=== PATIENT | female | born 1940 | race Caucasian/White ===

== ENCOUNTER 2016-11-19 04:56 | Emergency (ER) | payer MEDICARE, BC ==
[2016-11-19] MEDS ORDERED: 0.9 % SODIUM CHLORIDE 1,000 ML BAG IV ONE (05:17)
--- NOTE | 2016-11-19 05:24 | Emergency Department Record ---
History of Present Illness - General Chief complaint: Cough Stated complaint: COUGH Time Seen by Provider: 11/19/16 05:08 Source: Patient Mode of Arrival: Ambulatory Limitations: No limitations - History of Present Illness Initial comments: 76 yo female presented to the ER by EMS. She states she called the ambulance due to feeling weak, dizzy, nauseated, cough and short of breath. She states she has not felt well for about 3 days. The first symptom was sore throat. She is unaware of any fevers. Her cough at times has had thick sputum. No blood in the sputum. She called the ambulance due to feeling very weak and dizzy just prior to arrival. She lives alone. She denies vomiting or diarrhea or urinary symptoms. No headache. She has a feeling of trouble concentrating and remembering all the details of her recent illness. PCP is Trista with Dr Mccall. Complaint: Generalized weakness Onset/Timin -: Days(s) Location: Generalized Severity: Moderate Consistency: Intermittent Improves with: None Worsens with: Exertion Context: Recent illness Associated Symptoms: Confusion (trouble concentrating), Loss of appetite, Nausea /vomiting (nausea without vomiting) - Wheeler Coma Scale Eye Response: (4) Open spontaneously Motor Response: (6) Obeys commands Verbal Response: (5) Oriented Anne Total: 15 - Symptoms of Stroke Symptoms of stroke: Dizziness - Related Data Home Medications Medication Instructions Recorded Confirmed Last Taken Alprazolam [Alprazolam] 0.25 mg PO DAILY PRN 11/19/16 11/19/16 Unknown Aspirin [Ecotrin] 81 mg PO DAILY 11/19/16 11/19/16 Unknown Calcium Carbonate/Vitamin D3 1 each PO BID 11/19/16 11/19/16 Unknown [Calcium 500 + Vit D3 400 Tab] Carvedilol [Carvedilol] 6.25 mg PO BID 11/19/16 11/19/16 Unknown Cholecalciferol (Vitamin D3) 1,000 unit PO DAILY 11/19/16 11/19/16 Unknown [Vitamin D3] Latanoprost 0.005% Opth Liliam 2.5 ml OP BID 11/19/16 11/19/16 Unknown [Xalatan] Multivitamin [Multi-Vitamin Daily] 1 each PO DAILY 11/19/16 11/19/16 Unknown Oxybutynin Chloride [Oxybutynin 15 mg PO DAILY 11/19/16 11/19/16 Unknown Chloride ER] Raloxifene HCl [Evista] 60 mg PO DAILY 11/19/16 11/19/16 Unknown Spironolactone 12.5 mg PO DAILY 11/19/16 11/19/16 Unknown Previous Rx's Medication Instructions Recorded Azithromycin [Zithromax] 250 mg PO DAILY #4 tab 11/19/16 Allergies Allergy/AdvReac Type Severity Reaction Status Date / Time denosumab [From Prolia] Allergy SWELLING Verified 02/27/15 15:35 OF THE TONGUE Sulfa (Sulfonamide Allergy PT UNSURE Verified 02/27/15 15:35 Antibiotics) OF REACTION Travel Screening - Travel/Exposure Within Last 30 Days Have you traveled within the last 30 days?: No Review of Systems Constitutional: Reports: Malaise, Weakness. Denies: Chills, Fever Eyes: Denies: Eye discharge, Photophobia, Vision change ENT: Reports: Throat pain. Denies: Congestion Respiratory: Reports: Cough, Dyspnea. Denies: Hemoptysis, Stridor, Wheezes Cardiovascular: Denies: Chest pain, Palpitations, Syncope Endocrine: Reports: Fatigue. Denies: Polydipsia, Polyuria Gastrointestinal: Reports: Nausea. Denies: Abdominal pain, Diarrhea, Vomiting Genitourinary: Denies: Dysuria, Frequency, Urgency Musculoskeletal: Denies: Arthralgia, Back pain, Myalgia, Neck pain Skin: Denies: Bruising, Change in color, Rash Neurological: Reports: Weakness. Denies: Headache, Numbness, Vertigo Psychiatric: Denies: Anxiety Hematological/Lymphatic: Denies: Blood Clots, Easy bleeding, Easy bruising, Swollen glands Past Medical History - SOCIAL HISTORY Smoking Status: Never smoker Alcohol Use: None Drug Use: None - RESPIRATORY Hx Respiratory Disorders: No - CARDIOVASCULAR Hx Cardio Disorders: Yes Hx CHF: Yes (hx of when cardiomyopathy started) Hx Edema: Yes (hx of) Hx Hypertension: Yes (on meds good control) Comment:: cardiomyopathy dx'd 2003. stable now. works out 40 mins a day and walks nirmal - NEURO Hx Neuro Disorders: No - GI Hx GI Disorders: No - Hx Genitourinary Disorders: Yes Hx Bladder Problem: Yes (bladder pressure) - ENDOCRINE Hx Endocrine Disorders: No - MUSCULOSKELETAL Hx Musculoskeletal Disorders: Yes Hx Osteoporosis: Yes - PSYCH Hx Psych Problems: Yes Hx Anxiety: Yes - HEMATOLOGY/ONCOLOGY Hx Hematology/Oncology Disorders: No Family Medical History Any Significant Family History?: No Physical Exam - General General Appearance: Alert, Oriented x3, Cooperative, No acute distress, Other ( Alert but somewhat slowed with answers) Limitations: No limitations - Head Head exam: Normal inspection - Eye Eye exam: Normal appearance. negative: Conjunctival injection, Periorbital swelling - ENT ENT exam: Normal exam, Mucous membranes moist, Normal orophraynx Ear exam: Normal external inspection Nasal Exam: Normal inspection Mouth exam: Normal external inspection Teeth exam: Normal inspection Throat exam: Normal inspection - Neck Neck exam: Normal inspection, Full ROM. negative: Tenderness - Respiratory Respiratory exam: Normal lung sounds bilaterally. negative: Respiratory distress, Rhonchi, Stridor, Wheezes - Cardiovascular Cardiovascular Exam: Normal rhythm, Normal heart sounds, Tachycardia - GI/Abdominal GI/Abdominal exam: Soft. negative: Distended, Tenderness - Rectal Rectal exam: Deferred - exam: Deferred - Extremities Extremities exam: Normal inspection, Full ROM, Normal capillary refill. negative: Pedal edema, Tenderness - Back Back exam: Reports: Normal inspection, Full ROM. Denies: Muscle spasm, Rash noted, Tenderness - Neurological Neurological exam: Alert, CN II-XII intact. negative: Motor sensory deficit - Psychiatric Psychiatric exam: Flat affect - Skin Skin exam: Dry, Intact, Normal color, Warm. negative: Cyanosis, Diaphoretic, Erythema Course Vital Signs 11/19/16 05:10 Temperature 98.6 F Pulse Rate [ 112 H Pulse Ox Probe] Respiratory 16 Rate Blood Pressure 132/66 [Left Arm] Pulse Ox 96 - Reevaluation(s) Reevaluation #1: The labs were reviewed No acute changes of the CBC, CMP or Troponin UA is pending The HCT scan was reviewed from [facility]. It was read as no acute disease. 11/19/16 06:11 Reevaluation #2: UA is negative for acute changes 11/19/16 06:49 Repeat vital reviewed HR improved The patient states she is feeling much better and is ready to go home I recommended repeat Troponin For her cough she will be given Zithromax She denies any weakness, nausea, dizziness or concerns. She was informed of the recommendation for repeat Troponin She will need to call for a ride as well. 11/19/16 06:50 Reevaluation #3: The case was turned over at the bedside to Dr Robles for repeat enzymes The patient is attempting to schedule 11/19/16 07:30 Procedures - EKG Initial Date: 11/19/16 Time: 05:01 EKG: Unchanged From Previous (LVH noted on prior EKG on 09/09/16 as well) EKG Detail: Sinus tach, [place] 221, [place] L, LVH early repol likely due to LVH Medical Decision Making - Lab Data Result diagrams: 11/19/16 05:20 11/19/16 05:20 Disposition Disposition: Discharge Clinical Impression: Bronchitis, Dizziness Disposition: Home, Self-Care Condition: (1) Good Instructions: Acute Bronchitis (ED) Additional Instructions: Call your doctor today for a recheck this week Return to the hospital if you have any return of symptoms, pain, short of breath , dizziness or concerns Take the antibiotic daily for 4 more days Prescriptions: Azithromycin [Zithromax] 250 mg PO DAILY #4 tab Forms: Patient Portal Access Time of Disposition: 07:31
[2016-11-19 05:30] LABS: HEMATOCRIT 42.7 % (35.0-47.0); MEAN CELL VOLUME 99.3 fl (81-97); MEAN CORPUSCULAR HEMOGLOBIN 32.6 pg (27-33); MEAN CORPUSCULAR HGB CONC 32.8 g/dl (32-36); MEAN PLATELET VOLUME 13.4 fl (7.4-10.4); PLATELET COUNT 122 K/uL (130-400); RED CELL DISTRIBUTION WIDTH 13.2 % (11.5-14.5); WHITE BLOOD COUNT W/O DIFF 7.4 K/uL (4.2-12.2)
[2016-11-19 05:40] LABS: ALB/GLOB RATIO 1.2 (1.1-1.8); ALBUMIN 3.5 gm/dL (3.5-5.0); ALKALINE PHOSPHATASE 42 U/L (38-126); ALT/SGPT 36 U/L (9-52); ANION GAP 3.8 (7-16); AST/SGOT 31 U/L (14-36); BILIRUBIN,TOTAL 0.62 mg/dL (0.2-1.3); BLOOD UREA NITROGEN 16 mg/dL (7-17); CARBON DIOXIDE 27.2 mmol/L (22-30); CREATININE 0.8 mg/dL (0.52-1.04); EST GLOMERULAR FILTRATION RATE > 60 ml/min; GLUCOSE,RANDOM 115 mg/dL (70-110); TOTAL PROTEIN 6.4 gm/dL (6.3-8.2)
[2016-11-19 05:52] LABS: TROPONIN I < 0.012 ng/mL (0.00-0.034)
[2016-11-19 06:11] LABS: THYROID STIMULATING HORMONE 1.16 uIU/ml (0.465-4.68)
[2016-11-19 06:28] LABS: URINE APPEARANCE CLEAR; URINE BILIRUBIN NEGATIVE (NEGATIVE); URINE BLOOD NEGATIVE (NEGATIVE); URINE COLOR YELLOW; URINE GLUCOSE (UA) NEGATIVE (NEGATIVE); URINE KETONE NEGATIVE (NEGATIVE); URINE LEUKOCYTE ESTERASE NEGATIVE (NEGATIVE); URINE NITRITE NEGATIVE (NEGATIVE); URINE PROTEIN NEGATIVE (NEGATIVE); URINE UROBILINOGEN 0.2 E.U./dL (0.20 - 1.00)
[2016-11-19] MEDS: AZITHROMYCIN 500 MG TABLET PO ONE (06:59)
--- NOTE | 2016-11-19 08:29 | Emergency Department Record ---
History of Present Illness - General Chief Complaint: Cough Stated Complaint: COUGH Time Seen by Provider: 11/19/16 05:08 Source: Patient Mode of Arrival: Ambulatory Limitations: No limitations - History of Present Illness Initial Comments: cough and congestion and never smoked and I took ove from Dr. Burris at 7am. Patient was waiting for a second set of cardiac enzymes. Initial studies negative. Patient had acough for 3 days and a little dizzy when she came in to the hospital. No dizziness sitting up on the cart. Patient said she is feeling better and would like to go home. She wanted Zoe Marin called who works here. MD Complaint: Cough Onset/Timin -: Days(s) Severity: Moderate Consistency: Intermittent - Related Data Home Medications Medication Instructions Recorded Confirmed Last Taken Alprazolam [Alprazolam] 0.25 mg PO DAILY PRN 11/19/16 11/19/16 Unknown Aspirin [Ecotrin] 81 mg PO DAILY 11/19/16 11/19/16 Unknown Calcium Carbonate/Vitamin D3 1 each PO BID 11/19/16 11/19/16 Unknown [Calcium 500 + Vit D3 400 Tab] Carvedilol [Carvedilol] 6.25 mg PO BID 11/19/16 11/19/16 Unknown Cholecalciferol (Vitamin D3) 1,000 unit PO DAILY 11/19/16 11/19/16 Unknown [Vitamin D3] Latanoprost 0.005% Opth Liliam 2.5 ml OP BID 11/19/16 11/19/16 Unknown [Xalatan] Multivitamin [Multi-Vitamin Daily] 1 each PO DAILY 11/19/16 11/19/16 Unknown Oxybutynin Chloride [Oxybutynin 15 mg PO DAILY 11/19/16 11/19/16 Unknown Chloride ER] Raloxifene HCl [Evista] 60 mg PO DAILY 11/19/16 11/19/16 Unknown Spironolactone 12.5 mg PO DAILY 11/19/16 11/19/16 Unknown Previous Rx's Medication Instructions Recorded Azithromycin [Zithromax] 250 mg PO DAILY #4 tab 11/19/16 Allergies Allergy/AdvReac Type Severity Reaction Status Date / Time denosumab [From Prolia] Allergy SWELLING Verified 02/27/15 15:35 OF THE TONGUE Sulfa (Sulfonamide Allergy PT UNSURE Verified 02/27/15 15:35 Antibiotics) OF REACTION Travel Screening - Travel/Exposure Within Last 30 Days Have you traveled within the last 30 days?: No Review of Systems Constitutional: Reports: Malaise, Weakness. Denies: Chills, Fever Eyes: Denies: Eye discharge, Photophobia, Vision change ENT: Reports: Throat pain. Denies: Congestion Respiratory: Reports: Cough, Dyspnea. Denies: Hemoptysis, Stridor, Wheezes Cardiovascular: Denies: Chest pain, Palpitations, Syncope Endocrine: Reports: Fatigue. Denies: Polydipsia, Polyuria Gastrointestinal: Reports: Nausea. Denies: Abdominal pain, Diarrhea, Vomiting Genitourinary: Denies: Dysuria, Frequency, Urgency Musculoskeletal: Denies: Arthralgia, Back pain, Myalgia, Neck pain Skin: Denies: Bruising, Change in color, Rash Neurological: Reports: Weakness. Denies: Headache, Numbness, Vertigo Psychiatric: Denies: Anxiety Hematological/Lymphatic: Denies: Blood Clots, Easy bleeding, Easy bruising, Swollen glands Past Medical History - SOCIAL HISTORY Smoking Status: Never smoker Alcohol Use: None Drug Use: None - RESPIRATORY Hx Respiratory Disorders: No - CARDIOVASCULAR Hx Cardio Disorders: Yes Hx CHF: Yes (hx of when cardiomyopathy started) Hx Edema: Yes (hx of) Hx Hypertension: Yes (on meds good control) Comment:: cardiomyopathy dx'd 2003. stable now. works out 40 mins a day and walks nirmal - NEURO Hx Neuro Disorders: No - GI Hx GI Disorders: No - Hx Genitourinary Disorders: Yes Hx Bladder Problem: Yes (bladder pressure) - ENDOCRINE Hx Endocrine Disorders: No - MUSCULOSKELETAL Hx Musculoskeletal Disorders: Yes Hx Osteoporosis: Yes - PSYCH Hx Psych Problems: Yes Hx Anxiety: Yes - HEMATOLOGY/ONCOLOGY Hx Hematology/Oncology Disorders: No Family Medical History Any Significant Family History?: No Physical Exam - General General Appearance: Alert, Oriented x3, Cooperative, No acute distress Limitations: No limitations - Head Head exam: Normal inspection - Eye Eye exam: Normal appearance, PERRL Pupils: Normal accommodation - ENT ENT exam: Normal exam, Mucous membranes moist, Normal external ear exam, Normal orophraynx, TM's normal bilaterally Ear exam: Normal external inspection. negative: External canal tenderness Nasal Exam: Normal inspection. negative: Discharge, Sinus tenderness Mouth exam: Normal external inspection, Tongue normal Teeth exam: Normal inspection. negative: Dental caries Throat exam: Normal inspection. negative: Tonsillar erythema, Tonsillar exudate - Neck Neck exam: Normal inspection, Full ROM. negative: Tenderness - Respiratory Respiratory exam: Normal lung sounds bilaterally. negative: Respiratory distress - Cardiovascular Cardiovascular Exam: Regular rate, Normal rhythm, Normal heart sounds - GI/Abdominal GI/Abdominal exam: Soft, Normal bowel sounds. negative: Tenderness - Rectal Rectal exam: Deferred - exam: Deferred - Extremities Extremities exam: Normal inspection, Full ROM, Normal capillary refill. negative: Tenderness - Back Back exam: Reports: Normal inspection, Full ROM. Denies: Muscle spasm, Rash noted, Tenderness - Neurological Neurological exam: Alert, Normal gait, Oriented X3, Reflexes normal - Psychiatric Psychiatric exam: Normal affect, Normal mood - Skin Skin exam: Dry, Intact, Normal color, Warm Course Vital Signs 11/19/16 11/19/16 05:10 06:33 Temperature 98.6 F Pulse Rate [ 112 H 87 Pulse Ox Probe] Respiratory 16 18 Rate Blood Pressure 132/66 102/54 [Left Arm] Pulse Ox 96 92 L - Reevaluation(s) Reevaluation #1: 11/19/16 09:07 patient denies chest pain or dysnea Medical Decision Making - Data Complexity MDM Data: Labs Ordered and/or Reviewed (second trop i neg), X-Ray Ordered and/ or Reviewed (chest xray neg, CT head neg ), EKG Ordered and/or Reviewed (NSR , LVH repolarization, ) - Lab Data Result diagrams: 11/19/16 05:20 11/19/16 05:20 Lab Results 11/19/16 11/19/16 11/19/16 Range/Units 05:20 05:20 06:20 WBC 7.4 (4.2-12.2) K/uL RBC 4.30 (3.80-5.40) M/uL Hgb 14.0 (11.6-16.0) gm/dl Hct 42.7 (35.0-47.0) % MCV 99.3 H (81-97) fl MCH 32.6 (27-33) pg MCHC 32.8 (32-36) g/dl RDW 13.2 (11.5-14.5) % Plt Count 122 L (130-400) K/uL MPV 13.4 H (7.4-10.4) fl Neutrophils % 82.0 H (47-80) % Band Neutrophils % 0.0 (0-5) % Eosinophils % Not Reportable Basophils % Not Reportable Lymphocytes 10.0 L (16-45) % Monocytes 8.0 (0-9) % Basophils 0.0 (0-6) % Eosinophil Count 0.0 (0-6) % Sodium 135 L (136-145) mmol/L Potassium 4.0 (3.5-5.1) mmol/L Chloride 104 (98-107) mmol/L Carbon Dioxide 27.2 (22-30) mmol/L Anion Gap 3.8 L (7-16) BUN 16 (7-17) mg/dL Creatinine 0.8 (0.52-1.04) mg/dL Estimated GFR > 60 ml/min Random Glucose 115 H (70-110) mg/dL Calcium 8.5 (8.5-10.1) mg/dL Total Bilirubin 0.62 (0.2-1.3) mg/dL AST 31 (14-36) U/L ALT 36 (9-52) U/L Alkaline Phosphatase 42 (38-126) U/L Troponin I < 0.012 (0.00-0.034) ng/mL Total Protein 6.4 (6.3-8.2) gm/dL Albumin 3.5 (3.5-5.0) gm/dL Globulin 2.9 (1.4-4.8) gm/dL Albumin/Globulin Ratio 1.2 (1.1-1.8) TSH 1.16 (0.465-4.68) uIU/ml Urine Color Yellow Urine Appearance Clear Urine pH 7.5 (5.0-8.0) Ur Specific [place] 1.015 (1.002-1.030) Urine Protein Negative (NEGATIVE) Urine Glucose (UA) Negative (NEGATIVE) Urine Ketones Negative (NEGATIVE) Urine Blood Negative (NEGATIVE) Urine Nitrite Negative (NEGATIVE) Urine Bilirubin Negative (NEGATIVE) Urine Urobilinogen 0.2 (0.20 - 1.00) E.U./dL Ur Leukocyte Esterase Negative (NEGATIVE) Disposition Clinical Impression: Bronchitis, Dizziness Disposition: Home, Self-Care Condition: (1) Good Instructions: Acute Bronchitis (ED) Additional Instructions: Call your doctor today for a recheck this week Return to the hospital if you have any return of symptoms, pain, short of breath , dizziness or concerns Take the antibiotic daily for 4 more days Prescriptions: Azithromycin [Zithromax] 250 mg PO DAILY #4 tab Forms: Patient Portal Access Time of Disposition: 08:54
[2016-11-19 09:02] LABS: CKMB 0.4 ug/L (0-6); TROPONIN I < 0.012 ng/mL (0.00-0.034)
== END 2016-11-19 09:20 | disposition home or self-care (01) ==
LOC: ER 04:56
DX: J20.9 Acute bronchitis, unspecified (principal); R42 Dizziness and giddiness; R11.0 Nausea; R06.02 Shortness of breath; R53.1 Weakness; I10 Essential (primary) hypertension; I50.9 Heart failure, unspecified
CPT/HCPCS: 70450; 71020; 80053; 81003; 82553; 84443; 84484; 85027; 93005; 93010; 99284

== ENCOUNTER 2018-01-08 05:44 | Observation (INO) | payer MEDICARE, BC ==
[2018-01-08] MEDS ORDERED: IPRATROPIUM/ALBUTEROL (0.5MG/3MG) NEB INH ONE (05:55)
[2018-01-08] MEDS ORDERED: METHYLPREDNISOLONE PF 125MG/VIAL IVP ONE (05:55)
--- NOTE | 2018-01-08 06:05 | Emergency Department Record ---
History of Present Illness - General Chief Complaint: Shortness of breath Stated Complaint: CLARISSA Time Seen by Provider: 01/08/18 05:54 Source: Patient - History of Present Illness Initial Comments: The patient states she has had 3 days of increasing shortness of breath. She notified Dr. Mccall who ordered blood work and an out patient CXR, done yesterday. She came to the EDept. on her own this a.m. because her CLARISSA was worsening. She is a poor historian, lives alone, cares for all her daily needs by herself. She states she has lost 6 pounds over the past 3-4 months. Her dyspnea worsens when she exerts herself, improves with rest. She sleeps with one pillow without elevation of her head. She denies chest pain pressure or heaviness, fevers, chills, productive cough, URI symptoms, abdominal pain, leg swelling, diaphoresis. She has never been a smoker. She states she has been taking her meds as directed, but as not taken them this morning yet. PMH: She denies CVA, PE, DVT, pneumonia. She has hx of cardiomyopathy, CHF, htn, anxiety , depression. MD Complaint: Shortness of breath - Related Data Allergies Allergy/AdvReac Type Severity Reaction Status Date / Time denosumab [From Prolia] Allergy SWELLING Verified 02/27/15 15:35 OF THE TONGUE Sulfa (Sulfonamide Allergy PT UNSURE Verified 02/27/15 15:35 Antibiotics) OF REACTION Past Medical History - SOCIAL HISTORY Smoking Status: Never smoker Drug Use: None - RESPIRATORY Hx Respiratory Disorders: No - CARDIOVASCULAR Hx Cardio Disorders: Yes Hx CHF: Yes (hx of when cardiomyopathy started) Hx Edema: Yes (hx of) Hx Hypertension: Yes (on meds good control) Comment:: cardiomyopathy dx'd 2003. stable now. works out 40 mins a day and walks nirmal - NEURO Hx Neuro Disorders: No - GI Hx GI Disorders: No - Hx Genitourinary Disorders: Yes Hx Bladder Problem: Yes (bladder pressure) - ENDOCRINE Hx Endocrine Disorders: No - MUSCULOSKELETAL Hx Musculoskeletal Disorders: Yes Hx Osteoporosis: Yes - PSYCH Hx Psych Problems: Yes Hx Anxiety: Yes - HEMATOLOGY/ONCOLOGY Hx Hematology/Oncology Disorders: No Physical Exam - General General Appearance: Alert, Oriented x3, Cooperative, Mild distress (mildly- moderately breathless, cachectic, JVD of neck veins, generalized weakness RA biox 94.) - Head Head exam: Normal inspection - Eye Eye exam: Normal appearance, PERRL, EOMI Pupils: Normal accommodation - ENT ENT exam: Normal exam, Mucous membranes moist, Normal external ear exam, Normal orophraynx, TM's normal bilaterally Ear exam: Normal external inspection. negative: External canal tenderness Nasal Exam: Normal inspection. negative: Discharge, Sinus tenderness Mouth exam: Normal external inspection, Tongue normal Teeth exam: Normal inspection. negative: Dental caries Throat exam: Normal inspection. negative: Tonsillar erythema, Tonsillar exudate - Neck Neck exam: Normal inspection, Full ROM, Other (JVD sitting upright). negative: Tenderness - Respiratory Respiratory exam: Decreased breath sounds, Prolonged expiratory, Rales (all lung rice), Other (tachypnea at 44/minute). negative: Respiratory distress - Cardiovascular Cardiovascular Exam: Regular rate, Normal rhythm, Normal heart sounds - GI/Abdominal GI/Abdominal exam: Soft, Normal bowel sounds. negative: Tenderness - Rectal Rectal exam: Deferred - exam: Deferred - Extremities Extremities exam: Normal inspection, Full ROM, Normal capillary refill. negative: Calf tenderness, Pedal edema, Tenderness - Back Back exam: Reports: Normal inspection, Full ROM. Denies: Muscle spasm, Rash noted, Tenderness - Neurological Neurological exam: Alert, CN II-XII intact, Normal gait, Oriented X3, Reflexes normal. negative: Motor sensory deficit - Psychiatric Psychiatric exam: Anxious, Depressed, Flat affect, Normal affect, Normal mood - Skin Skin exam: Dry, Intact, Normal color, Warm Course Vital Signs 01/08/18 05:45 Pulse Rate [ 91 H Pulse Ox Probe] Respiratory 44 H Rate Blood Pressure 142/80 [Left Arm] Pulse Ox 94 L - Reevaluation(s) Reevaluation #1: Patient states that the Duoneb helped her "a little bit." 01/08/18 06:27 Reevaluation #2: Dr. Munguia title i paraprofessional and paged. No response yet, will write orders. 01/08/18 06:57 Reevaluation #3: Discussed case with Dr. Munguia who accepts patient for observation. 01/08/18 07:03 Medical Decision Making - Management Options MDM Management: Additional Work-up Planned (e.g. ADM/Transfer/OP Study) - Data Complexity MDM Data: Labs Ordered and/or Reviewed, X-Ray Ordered and/or Reviewed (CXR from 01-07-18 read by Rad. as no acute process, osteopenia, hyperinflation of lungs. ) , EKG Ordered and/or Reviewed - Lab Data Result diagrams: 01/08/18 06:02 01/08/18 06:02 - EKG Data -: EKG Interpreted by Me (NSR 82/min, LAD, multifocal PVC's, nonspec. ST changes , similar to 04-07-17) EKG: Unchanged From Previous Disposition Clinical Impression: Exertional dyspnea, Generalized weakness Disposition: Still a Patient at [facility] Decision to Admit: Admit from ER Decision to Admit Date: 01/08/18 Decision to Admit Time: 06:58 Accepting Physician: Dr. Munguia (title i paraprofessional) Condition: (1) Good Forms: Patient Portal Access Quality - Quality Measures Quality Measures: N/A - Blood Pressure Screening Does Patient Have Any of the Following: No Blood Pressure Classification: Normal BP Reading Systolic Measurement: 95 Diastolic Measurement: 63 Screening for High Blood Pressure: Patient Exclusion, Hx of HTN [G9744]
[2018-01-08 06:25] LABS: BLOOD UREA NITROGEN 20 mg/dL (8-23); CREATININE 0.7 mg/dL (0.5-0.9); EST GLOMERULAR FILTRATION RATE > 60 mL/min
[2018-01-08 06:26] LABS: BASO % 0.4 % (0-6); GRAN % 51.2 % (47-80); HEMATOCRIT 45.3 % (35.0-47.0); HEMOGLOBIN 15.2 gm/dl (11.6-16.0); LYMPH % 33.6 % (16-45); MEAN CELL VOLUME 100.7 fl (81-97); MEAN CORPUSCULAR HEMOGLOBIN 33.8 pg (27-33); MEAN CORPUSCULAR HGB CONC 33.6 g/dl (32-36); MEAN PLATELET VOLUME 13.9 fl (7.4-10.4); MONO % 11.8 % (0-9); PLATELET COUNT 158 K/uL (130-400); RED CELL DISTRIBUTION WIDTH 13.6 % (11.5-14.5); TOTAL PROTEIN 6.5 g/dL (6.6-8.7); WHITE BLOOD COUNT W/O DIFF 7.1 K/uL (4.2-12.2)
[2018-01-08 06:28] LABS: GLUCOSE,RANDOM 143 mg/dL (74-109)
[2018-01-08 06:31] LABS: ALB/GLOB RATIO 1.6 (1.1-1.8); ALKALINE PHOSPHATASE 45 U/L (35-104); ALT/SGPT 30 U/L (<33); AST/SGOT 37 U/L (10.0-35.0)
[2018-01-08] MEDS ORDERED: ACETAMINOPHEN 325 MG TAB PO PRN (07:46)
--- NOTE | 2018-01-08 08:39 | History & Physical ---
History of Present Illness - Date of Service Date of Service for History & Physical: 01/08/18 - History of Present Illness Admitting Diagnosis: Exertional dyspnea; generalized weakness History of Present Illness: Mrs. Nielson is 77 y/o female with complaint of shortness of breath for the past 4-5 days. She is very non-specific about when she has increasing shortness of breath but it appears that her symptoms are more on exertion. She says that she is able to lay flat in bed using only one pillow but notes mild intermittent swelling of her ankles. On further discussion the patient reports possible exposure to asbestos found under the tiles in her basement. She says that she was asked to leave her home until it could be properly disposed of but she has remained in her home. The patient denies cough, chest pain, or swelling of the extremities. She also notes a history of heart failure and is seen by Dr. Waller but has not been evaluated by him in a long time. On arrival to [facility] ED the patient on initial workup had unremarkable labs but chest xray was significant for hyperinflation of bilateral lungs and an suspicious finding of infiltrate vs small effusion. The patient was given once dose of IV solumedrol 125mg and duonebs. Her saturations have been maintained at > 94% on room air and she is hemodynamically stable. The patient is admitted for continued respiratory treatment and observation. Travel Screening - Travel/Exposure Within Last 30 Days Have you traveled within the last 30 days?: No Past Medical History - SOCIAL HISTORY Smoking Status: Never smoker Drug Use: None - RESPIRATORY Hx Respiratory Disorders: No - CARDIOVASCULAR Hx Cardio Disorders: Yes Hx CHF: Yes (hx of when cardiomyopathy started) Hx Edema: Yes (hx of) Hx Hypertension: Yes (on meds good control) Comment:: cardiomyopathy dx'd 2003. stable now. works out 40 mins a day and walks nirmal - NEURO Hx Neuro Disorders: No - GI Hx GI Disorders: No - Hx Genitourinary Disorders: Yes Hx Bladder Problem: Yes (bladder pressure) - ENDOCRINE Hx Endocrine Disorders: No - MUSCULOSKELETAL Hx Musculoskeletal Disorders: Yes Hx Osteoporosis: Yes - PSYCH Hx Psych Problems: Yes Hx Anxiety: Yes - HEMATOLOGY/ONCOLOGY Hx Hematology/Oncology Disorders: No Family Medical History Any Significant Family History?: No H&P Meds/Allergies - Allergies Allergies: Allergies Allergy/AdvReac Type Severity Reaction Status Date / Time denosumab [From Prolia] Allergy SWELLING Verified 02/27/15 15:35 OF THE TONGUE Sulfa (Sulfonamide Allergy PT UNSURE Verified 02/27/15 15:35 Antibiotics) OF REACTION - Active Medications Active Medications: Current Medications Acetaminophen (Tylenol 325mg) 650 mg PO Q4H PRN PRN Reason: PAIN - MILD(1-4)/FEVER Albuterol Sulfate () 2.5 mg INH RESP.Q4H.WA [facility] Aspirin (Ecotrin (Ec)) 81 mg PO DAILY [facility] Methylprednisolone Sodium Succinate (Solu-Medrol) 60 mg IVP DAILY [facility] Non-Formulary Medication (Calcium Carbonate/Vitamin D3 [Calcium 500-Vit D3 400 Tablet]) 1 each PO BID [place] Non-Formulary Medication (Carvedilol [Carvedilol]) 6.25 mg PO BID [facility] Non-Formulary Medication (Cholecalciferol (Vitamin D3) [Vitamin D3]) 1,000 unit PO DAILY [facility] Non-Formulary Medication (Latanoprost 0.005% Opth Liliam [Xalatan]) 2.5 ml OP BID [facility] Non-Formulary Medication (Oxybutynin Chloride [Oxybutynin Chloride Er]) 15 mg PO DAILY [place] Spironolactone (Aldactone) 12.5 mg PO DAILY [facility] Physical Exam - Vital Signs Vital Signs: Vital Signs - Last 24 Hrs Temp Pulse Pulse Pulse Resp BP BP 01/08/18 07:02 91 H 28 H 95/63 01/08/18 06:55 96.4 F L 01/08/18 06:00 82 30 H 01/08/18 05:45 91 H 44 H 142/80 Pulse Ox 01/08/18 07:02 94 L 01/08/18 06:55 01/08/18 06:00 97 01/08/18 05:45 94 L - General General Appearance: Alert, Oriented x3, Cooperative, Mild distress (mildly- moderately breathless, cachectic, JVD of neck veins, generalized weakness RA biox 94.) - Head Head exam: Normal inspection - Eye Eye exam: Normal appearance, PERRL, EOMI Pupils: Normal accommodation - ENT ENT exam: Normal exam, Mucous membranes moist, Normal external ear exam, Normal orophraynx, TM's normal bilaterally Ear exam: Normal external inspection. negative: External canal tenderness Nasal Exam: Normal inspection. negative: Discharge, Sinus tenderness Mouth exam: Normal external inspection, Tongue normal Teeth exam: Normal inspection. negative: Dental caries Throat exam: Normal inspection. negative: Tonsillar erythema, Tonsillar exudate - Neck Neck exam: Normal inspection, Full ROM, Other (JVD sitting upright). negative: Tenderness - Respiratory Respiratory exam: Decreased breath sounds, Prolonged expiratory, Rales (all lung rice), Other (tachypnea at 44/minute). negative: Respiratory distress - Cardiovascular Cardiovascular Exam: Regular rate, Normal rhythm, Normal heart sounds Peripheral Pulses: 3+: Radial (R), Radial (L), Dorsalis Pedis (R), Dorsalis Pedis (L) - GI/Abdominal GI/Abdominal exam: Soft, Normal bowel sounds. negative: Tenderness - Rectal Rectal exam: Deferred - exam: Deferred - Extremities Extremities exam: Normal inspection, Full ROM, Normal capillary refill. negative: Calf tenderness, Pedal edema, Tenderness - Back Back exam: Reports: Normal inspection, Full ROM. Denies: Muscle spasm, Rash noted, Tenderness - Neurological Neurological exam: Alert, CN II-XII intact, Normal gait, Oriented X3, Reflexes normal. negative: Motor sensory deficit - Psychiatric Psychiatric exam: Anxious, Depressed, Flat affect, Normal affect, Normal mood - Skin Skin exam: Dry, Intact, Normal color, Warm Results - Labs Result Diagrams: 01/08/18 06:02 01/08/18 06:02 Labs Last 24 Hours: Laboratory Results - last 24 hr 01/08/18 01/08/18 01/08/18 06:02 06:02 06:02 WBC 7.1 RBC 4.50 Hgb 15.2 Hct 45.3 MCV 100.7 H MCH 33.8 H MCHC 33.6 RDW 13.6 Plt Count 158 MPV 13.9 H Gran % 51.2 Lymphocytes % 33.6 Monocytes % 11.8 H Eosinophils % 3.0 Basophils % 0.4 D-Dimer 0.30 Sodium 134 L Potassium 4.4 Chloride 96 L Carbon Dioxide 24.0 Anion Gap 14.0 BUN 20 Creatinine 0.7 Estimated GFR > 60 Random Glucose 143 H Calcium 9.1 Total Bilirubin 0.70 AST 37 H ALT 30 Alkaline Phosphatase 45 Troponin T NT-Pro-B Natriuret Pep 7471.00 H Total Protein 6.5 L Albumin 4.0 Globulin 2.5 Albumin/Globulin Ratio 1.6 TSH 01/08/18 01/08/18 06:02 06:02 WBC RBC Hgb Hct MCV MCH MCHC RDW Plt Count MPV Gran % Lymphocytes % Monocytes % Eosinophils % Basophils % D-Dimer Sodium Potassium Chloride Carbon Dioxide Anion Gap BUN Creatinine Estimated GFR Random Glucose Calcium Total Bilirubin AST ALT Alkaline Phosphatase Troponin T < 0.010 NT-Pro-B Natriuret Pep Total Protein Albumin Globulin Albumin/Globulin Ratio TSH 2.44 VTE H&P Assessment - Risk for VTE Risk for VTE: Yes Risk Level: Moderate Risk Assessment Date: 01/08/18 Risk Assessment Time: 09:00 VTE Orders Placed or Will Be Placed: Yes Plan - Detailed Diagnosis and Plan (1) Exertional dyspnea Current Visit: Yes Status: Acute Base Code: R06.09 - OTHER FORMS OF DYSPNEA Comment: 01/08/18: - CXR: showing hyperinflation of bilateral lungs with possile infiltrate vs. effusion of the right lower lung. - Albuterol Q4H PRN , solumedrol 125mg once in ED, D/C solumedrol 60mg. - BNP 7141, 2D echo ordered. Follow up with Cardiology outpatient. (2) CHF (congestive heart failure) Current Visit: Yes Status: Chronic Qualifiers: Heart failure type: unspecified Heart failure chronicity: chronic Qualified Code(s): I50.9 - Heart failure, unspecified Base Code: I50.9 - HEART FAILURE, UNSPECIFIED Comment: 01/08/18: - hx CHF, last echo?, BNP > 7471, CXR: no volume overload. EKG: NSR, no acute ST -T wave changes. Troponins negative x 1. No evidence of acute exacerbation. - resume Aldactone 12.5md daily, Coreg 6.25mg BID, ASA 81mg. - ordered 2D echo, pending Cardiology. (3) Failure to thrive in adult Current Visit: Yes Status: Acute Base Code: R62.7 - ADULT FAILURE TO THRIVE Comment: 01/07/18: - pt reports poor PO intake due to loss of appetite. - symptoms appear to be more psychological that and she may benefit from an antidepressant. - regular diet ordered. (4) Osteoporosis Current Visit: Yes Status: Acute Base Code: M81.0 - AGE-RELATED OSTEOPOROSIS W/O CURRENT PATHOLOGICAL FRACTURE Comment: 01/08/18: - recently d/cd Risendronate. (5) Glaucoma Current Visit: Yes Status: Acute Base Code: H40.9 - UNSPECIFIED GLAUCOMA Comment: 01/08/18: - resume Latanoprost. (6) Full code status Current Visit: Yes Status: Acute Base Code: Z78.9 - OTHER SPECIFIED HEALTH STATUS Comment: 01/08/18: - FULL CODE - Will discuss code status with patient. - Disposition Likely D/C home today with follow up outpatient with Cardiology.
[2018-01-08] MEDS ORDERED: OPTH OP SCH (10:00)
[2018-01-08] MEDS ORDERED: SPIRONOLACTONE 25 MG TAB PO SCH (10:00)
[2018-01-08] MEDS ORDERED: LATANOPROST 0.005% OP SCH (10:00)
[2018-01-08] MEDS ORDERED: ASPIRIN 81 MG TABEC PO SCH (10:00)
[2018-01-08] MEDS ORDERED: METHYLPREDNISOLONE PF 125MG/VIAL IVP SCH (10:00)
[2018-01-08] MEDS ORDERED: ENOXAPARIN 40 MG/0.4 ML SYR SQ SCH (10:00)
[2018-01-08] MEDS ORDERED: CHOLECALCIFEROL 1,000 UNIT TABLET PO SCH (10:30)
[2018-01-08] MEDS ORDERED: CARVEDILOL 3.125 MG TABLET PO SCH (10:30)
[2018-01-08] MEDS ORDERED: CALCIUM CARB/VITAMIN D 500MG/200IU PO SCH (10:30)
[2018-01-08] MEDS ORDERED: OXYBUTYNIN CHLORIDE 5MG TABLET PO SCH (10:45)
[2018-01-08] MEDS: ALBUTEROL SULFATE (0.083%) 2.5 MG/3 ML NEB INH SCH ×2 (10:53→14:00)
--- NOTE | 2018-01-08 15:23 | Discharge Summary ---
Providers Discharge Summary Date: 01/08/18 Date of admission: 01/08/18 07:30 Attending physician: GODWIN DIEGO Primary care physician: NAIF JETER D.O. Consults: Consult Orders 01/08/18 07:46 Mental Health Program Manager [Consult - Case Management] Now Comment: Reason For Exam: lies alone, failure to thrive, depression Physical Exam - Vital Signs Vital Signs: Vital Signs - Last 24 Hrs Temp Pulse Pulse Pulse Resp BP BP 01/08/18 14:12 80 18 01/08/18 14:07 88 18 01/08/18 12:00 97.9 F 93 H 18 109/66 01/08/18 10:00 86 18 01/08/18 09:00 90 18 01/08/18 08:54 26 H 01/08/18 07:45 98.4 F 90 18 112/58 01/08/18 07:02 91 H 28 H 95/63 01/08/18 06:55 96.4 F L 01/08/18 06:00 82 30 H 01/08/18 05:45 91 H 44 H 142/80 Pulse Ox 01/08/18 14:12 97 01/08/18 14:07 97 01/08/18 12:00 97 01/08/18 10:00 91 L 01/08/18 09:00 01/08/18 08:54 01/08/18 07:45 95 01/08/18 07:02 94 L 01/08/18 06:55 01/08/18 06:00 97 01/08/18 05:45 94 L - General General Appearance: Alert, Oriented x3, Cooperative, Mild distress (mildly- moderately breathless, cachectic, JVD of neck veins, generalized weakness RA biox 94.) - Head Head exam: Normal inspection - Eye Eye exam: Normal appearance, PERRL, EOMI Pupils: Normal accommodation - ENT ENT exam: Normal exam, Mucous membranes moist, Normal external ear exam, Normal orophraynx, TM's normal bilaterally Ear exam: Normal external inspection. negative: External canal tenderness Nasal Exam: Normal inspection. negative: Discharge, Sinus tenderness Mouth exam: Normal external inspection, Tongue normal Teeth exam: Normal inspection. negative: Dental caries Throat exam: Normal inspection. negative: Tonsillar erythema, Tonsillar exudate - Neck Neck exam: Normal inspection, Full ROM, Other (JVD sitting upright). negative: Tenderness - Respiratory Respiratory exam: Decreased breath sounds, Prolonged expiratory, Rales (all lung rice), Other (tachypnea at 44/minute). negative: Respiratory distress - Cardiovascular Cardiovascular Exam: Regular rate, Normal rhythm, Normal heart sounds Peripheral Pulses: 3+: Radial (R), Radial (L), Dorsalis Pedis (R), Dorsalis Pedis (L) - GI/Abdominal GI/Abdominal exam: Soft, Normal bowel sounds. negative: Tenderness - Rectal Rectal exam: Deferred - exam: Deferred - Extremities Extremities exam: Normal inspection, Full ROM, Normal capillary refill. negative: Calf tenderness, Pedal edema, Tenderness - Back Back exam: Reports: Normal inspection, Full ROM. Denies: Muscle spasm, Rash noted, Tenderness - Neurological Neurological exam: Alert, CN II-XII intact, Normal gait, Oriented X3, Reflexes normal. negative: Motor sensory deficit - Psychiatric Psychiatric exam: Anxious, Depressed, Flat affect, Normal affect, Normal mood - Skin Skin exam: Dry, Intact, Normal color, Warm Hospitalization - Hospitalization Admission Diagnosis: Exertional dyspnea; generalized weakness - Problem List/Discharge Diagnosis (1) Exertional dyspnea Current Visit: Yes Status: Acute Base Code: R06.09 - OTHER FORMS OF DYSPNEA Comment: 01/08/18: - CXR: showing hyperinflation of bilateral lungs with possile infiltrate vs. effusion of the right lower lung. - Albuterol Q4H PRN , solumedrol 125mg once in ED, D/C solumedrol 60mg. - BNP 7141, 2D echo ordered. Follow up with Cardiology outpatient. (2) CHF (congestive heart failure) Current Visit: Yes Status: Chronic Discharge Diagnosis: Heart failure type: unspecified Heart failure chronicity: chronic Qualified Code(s): I50.9 - Heart failure, unspecified Base Code: I50.9 - HEART FAILURE, UNSPECIFIED Comment: 01/08/18: - hx CHF, last echo?, BNP > 7471, CXR: no volume overload. EKG: NSR, no acute ST -T wave changes. Troponins negative x 1. No evidence of acute exacerbation. - resume Aldactone 12.5md daily, Coreg 6.25mg BID, ASA 81mg. - ordered 2D echo, pending Cardiology. (3) Failure to thrive in adult Current Visit: Yes Status: Acute Base Code: R62.7 - ADULT FAILURE TO THRIVE Comment: 01/07/18: - pt reports poor PO intake due to loss of appetite. - symptoms appear to be more psychological that and she may benefit from an antidepressant. - regular diet ordered. (4) Osteoporosis Current Visit: Yes Status: Acute Base Code: M81.0 - AGE-RELATED OSTEOPOROSIS W/O CURRENT PATHOLOGICAL FRACTURE Comment: 01/08/18: - recently d/cd Risendronate. (5) Glaucoma Current Visit: Yes Status: Acute Base Code: H40.9 - UNSPECIFIED GLAUCOMA Comment: 01/08/18: - resume Latanoprost. (6) Full code status Current Visit: Yes Status: Acute Base Code: Z78.9 - OTHER SPECIFIED HEALTH STATUS Comment: 01/08/18: - FULL CODE - Will discuss code status with patient. - Disposition Likely D/C home today with follow up outpatient with Cardiology. - Hospitalization Course Hospital Course: Mrs. Nielson is 77 y/o female with complaint of shortness of breath for the past 4-5 days. She is very non-specific about when she has increasing shortness of breath but it appears that her symptoms are more on exertion. She says that she is able to lay flat in bed using only one pillow but notes mild intermittent swelling of her ankles. On further discussion the patient reports possible exposure to asbestos found under the tiles in her basement. She says that she was asked to leave her home until it could be properly disposed of but she has remained in her home. The patient denies cough, chest pain, or swelling of the extremities. She also notes a history of heart failure and is seen by Dr. Waller but has not been evaluated by him in a long time. On arrival to [facility] ED the patient on initial workup had unremarkable labs but chest xray was significant for hyperinflation of bilateral lungs and an suspicious finding of infiltrate vs small effusion. The patient was given once dose of IV solumedrol 125mg and duonebs. Her saturations have been maintained at > 94% on room air and she is hemodynamically stable. The patient is admitted for continued respiratory treatment and observation. Evaluation at 3:24pm: The patient is doing well, sitting at bedside in no acute distress completing a crossword puzzle. Serial troponin is not elevated and the patient has not shown any acute changes on residential monitor. PCP: Dr. Jeter Procedures: Cardiology Procedures 01/08/18 05:55 EKG NOW 01/08/18 07:46 Tissue Coordinator .Continuous 01/08/18 08:39 Echocardiogram 2D - Complete NOW Abnormal Labs: Abnormal Lab Results 01/08/18 01/08/18 Range/Units 06:02 06:02 MCV 100.7 H (81-97) fl MCH 33.8 H (27-33) pg MPV 13.9 H (7.4-10.4) fl Monocytes % 11.8 H (0-9) % Sodium 134 L (136-145) mmol/L Chloride 96 L (98-107) mmol/L Random Glucose 143 H (74-109) mg/dL AST 37 H (10.0-35.0) U/L NT-Pro-B Natriuret Pep 7471.00 H (<450) pg/mL Total Protein 6.5 L (6.6-8.7) g/dL Condition at Discharge: (1) Good Discharge Medications - Discharge Medications Prescriptions: Albuterol Sulfate [Proair Hfa] 1 - 2 puff IH .EVERY 4-6 HOURS PRN #1 inhaler PRN Reason: Difficulty In Breathing Home Medications: Ambulatory Orders Aspirin [Ecotrin] 81 mg PO DAILY 11/19/16 [Last Taken Unknown] Calcium Carbonate/Vitamin D3 [Calcium 500-Vit D3 400 Tablet] 1 each PO BID 11/19 [Last Taken Unknown] Carvedilol 6.25 mg PO BID 11/19/16 [Last Taken Unknown] Cholecalciferol (Vitamin D3) [Vitamin D3] 1,000 unit PO DAILY 11/19/16 [Last Taken Unknown] Latanoprost 0.005% Opth Liliam [Xalatan] 2.5 ml OP BID 11/19/16 [Last Taken Unknown ] Oxybutynin Chloride [Oxybutynin Chloride ER] 15 mg PO DAILY 11/19/16 [Last Taken Unknown] Spironolactone 12.5 mg PO DAILY 11/19/16 [Last Taken Unknown] Albuterol Sulfate [Proair Hfa] 1 - 2 puff IH .EVERY 4-6 HOURS PRN #1 inhaler [Last Taken Unknown] Discharge Plan - Discharge Instructions Activity at Discharge: Resume Usual Activities As Tolerated Diet at Discharge: Regular Diet Instructions: Heart Failure (DC), Transthoracic Echocardiogram (DC), Low- Sodium Diet (DC) Additional Instructions: Echocardiogram is scheduled for January 11 at 1100 am. Please arrive at 1045am for registration. Follow up appt with your PCP Dr. Cole as scheduled on ThursdayJanuary 13. You have been prescribed and inhaler to be used when needed. Please take this with you to your PCP appt to have education about use. Quality Measures - Quality Measures Quality Measures: Advance Directives, Documentation of Current Medications in Medical Record, Elder Maltreatment Screen and Follow-Up Plan, Heart Failure, Screening for High Blood Pressure and F/U Documented - Current Medications Quality Measure: Measure #130: Documentation of Current Medications Documentation of Current Medications: <Current Medications Documented/Reviewed> [G8441] - Blood Pressure Screening Quality Measure: Screening for High Blood Pressure and Follow-Up Documented Does Patient Have Any of the Following: No Blood Pressure Classification: Normal BP Reading Systolic Measurement: 109 Diastolic Measurement: 66 Screening for High Blood Pressure: < Normal BP, F/U Not Required > [G8783] - Heart Failure (MARIBEL/ARB Therapy) Quality Measure: Heart Failure Left Ventricular Systolic Function: Unknown MARIBEL Inhibitor or ARB Therapy for LVSD: Not Prescribed, Reason not Specified [ 4010F with 8P] - Heart Failure (Beta-dm Therapy) Quality Measure: Heart Failure Left Ventricular Systolic Function: Unknown Beta-Dm Therapy for LVEF < 40%: <Beta-Dm Therapy Prescribed> [G8450] - Advance Directives Quality Measure: Measure #47: Care Plan Advance Directives Established: No Advance Directives Information Provided To Patient: No Advance Directives on File: No Living Will: Yes Power of Casket Coverer: Yes Power of Casket Coverer Name: Lita Ramos Advance Care Planning: <Care Plan/Decision Maker Not Decided; Discussed & Documented> [9924F] - Elder Abuse Suspicion Index Screening: Elder Abuse Suspicion Index Screening Rely on people for bathing, dressing, shopping, banking, etc: No Prevented from getting food, clothes, medication, etc: No Made to feel shamed or threatened by someone: No Forced to sign papers or use money against will: No Feel afraid, touched in ways not wanted or hurt physically: No Poor eye contact, withdrawn, malnourished, cuts or bruises: No Screening Result: Negative result EASI Reference Information: Soila MARTINEZ, Kelton C, Irvin D, Elmer Yee.Development and validation of a tool to assist physicians identification of elder abuse: The Elder Abuse Suspicion Index (EASI ). Journal of Elder Abuse and Neglect, 2008; 20 (3): 276-300. - Elder Maltreatment Screen Quality Measures: Elder Maltreatment Screen and Follow-Up Plan Elder Maltreatment Screen: <Negative, No Follow-Up Plan Required> [G8734]
[2018-01-08] MEDS ORDERED: LATANOPROST 0.005% OPTH SOLUTION 2.5ML BOTTLE OPTH SCH (22:00)
== END 2018-01-08 16:25 | disposition home or self-care (01) ==
LOC: ER 05:44 → MEDSURG 07:30
PROVIDERS: ADMIT Internal Medicine; ATTEND Internal Medicine
DX: R06.09 Other forms of dyspnea (principal); I50.9 Heart failure, unspecified; R62.7 Adult failure to thrive; M81.0 Age-related osteoporosis without current pathological fracture; H40.9 Unspecified glaucoma; I10 Essential (primary) hypertension
CPT/HCPCS: 85025; 80048; 80053; 84443; 84484; 85379; 83880; 94640; 94761; 93005; 93010; G0378; J3490; 96374; 99220; 99285; J1650; J2930; J7613

== ENCOUNTER 2018-01-08 22:31 | Inpatient (IN) | payer MEDICARE, BC ==
--- NOTE | 2018-01-08 22:58 | Emergency Department Record ---
History of Present Illness - General Chief Complaint: Shortness of breath Stated Complaint: CLARISSA Time Seen by Provider: 01/08/18 22:38 Source: Patient Mode of Arrival: Stretcher Limitations: No limitations - History of Present Illness Initial Comments: 77 yo female presents to ED for evaluation of reoccurrence of shortness of breath symptoms. Patient was admitted last night for similar symptoms, discharged this afternoon. Patient was diagnosed with possible COPD vs. infiltrate vs. CHF with small pleural effusion, was discharged home on Albuterol that she has not filled as of yet. Patient denies lower extremity edema, fevers, coughing, or history of DVT. Patient does report that she is feeling better following application of oxygen by EMS providers, O2 sat was 97% on RA. Patient is scheduled for an outpatient echo Thursday. MD Complaint: Shortness of breath Onset/Timin -: Hour(s) Severity: Mild Consistency: Constant Improves With: Oxygen Worsens With: Exertion Known History Of: Congestive heart failure, COPD Associated Symptoms: Denies other symptoms Treatments Prior to Arrival: None - Related Data Home Oxygen Therapy: No Previous Rx's Medication Instructions Recorded Albuterol Sulfate [Proair Hfa] 1 - 2 puff IH .EVERY 4-6 HOURS PRN 01/08/18 #1 inhaler Allergies Allergy/AdvReac Type Severity Reaction Status Date / Time denosumab [From Prolia] Allergy SWELLING Verified 02/27/15 15:35 OF THE TONGUE Sulfa (Sulfonamide Allergy PT UNSURE Verified 02/27/15 15:35 Antibiotics) OF REACTION Review of Systems Constitutional: Denies: Chills, Fever, Malaise, Night sweats Eyes: Denies: Eye discharge, Eye pain ENT: Denies: Congestion, Ear pain, Epistaxis Respiratory: Reports: Dyspnea. Denies: Cough, Hemoptysis Cardiovascular: Reports: Dyspnea on exertion. Denies: Chest pain, Edema Endocrine: Denies: Fatigue, Heat or cold intolerance Gastrointestinal: Denies: Abdominal pain, Nausea, Vomiting Genitourinary: Denies: Incontinence, Retention Musculoskeletal: Denies: Back pain, Gout, Joint swelling Skin: Denies: Bruising, Change in color Neurological: Denies: Abnormal gait, Confusion, Headache, Seizure Psychiatric: Denies: Anxiety Hematological/Lymphatic: Denies: Anemia, Blood Clots Past Medical History - SOCIAL HISTORY Smoking Status: Never smoker Drug Use: None - RESPIRATORY Hx Respiratory Disorders: No - CARDIOVASCULAR Hx Cardio Disorders: Yes Hx CHF: Yes (hx of when cardiomyopathy started) Hx Edema: Yes (hx of) Hx Hypertension: Yes (on meds good control) Comment:: cardiomyopathy dx'd 2003. stable now. works out 40 mins a day and walks nirmal - NEURO Hx Neuro Disorders: No - GI Hx GI Disorders: No - Hx Genitourinary Disorders: Yes Hx Bladder Problem: Yes (bladder pressure) - ENDOCRINE Hx Endocrine Disorders: No - MUSCULOSKELETAL Hx Musculoskeletal Disorders: Yes Hx Osteoporosis: Yes - PSYCH Hx Psych Problems: Yes Hx Anxiety: Yes - HEMATOLOGY/ONCOLOGY Hx Hematology/Oncology Disorders: No Physical Exam - General General Appearance: Alert, Oriented x3, Cooperative, Mild distress, Anxious Limitations: No limitations - Head Head exam: Atraumatic, Normocephalic, Normal inspection Head exam detail: negative: Abrasion, Contusion, Edwards's sign, General tenderness, Hematoma, Laceration - Eye Eye exam: Normal appearance. negative: Conjunctival injection, Periorbital swelling, Periorbital tenderness, Scleral icterus - ENT Ear exam: negative: Auricular hematoma, Auricular trauma Nasal Exam: negative: Active bleeding, Discharge, Dried blood, Foreign body Mouth exam: negative: Drooling, Laceration, Muffled voice, Tongue elevation - Neck Neck exam: Normal inspection. negative: Meningismus, Tenderness - Respiratory Respiratory exam: Decreased breath sounds. negative: Rales, Respiratory distress, Rhonchi, Stridor, Wheezes - Cardiovascular Cardiovascular Exam: Regular rate, Normal rhythm, Normal heart sounds - GI/Abdominal GI/Abdominal exam: Soft. negative: Rebound, Rigid, Tenderness - Rectal Rectal exam: Deferred - exam: Deferred - Extremities Extremities exam: negative: Pedal edema, Tenderness - Back Back exam: Denies: CVA tenderness (R), CVA tenderness (L) - Neurological Neurological exam: Alert, Normal gait, Oriented X3 - Psychiatric Psychiatric exam: Normal affect, Normal mood - Skin Skin exam: Normal color. negative: Abrasion Type of lesion: negative: abrasion Course Vital Signs 01/08/18 22:37 Temperature 97.6 F Pulse Rate [ 87 Pulse Ox Probe] Respiratory 22 Rate Blood Pressure 129/73 [Left Arm] Pulse Ox 96 - Reevaluation(s) Reevaluation #1: 01/08/18 23:18 EKG: NSR 93 with PVCs LAD, IVCD T wave inversions I, AVL Reevaluation #2: 01/08/18 23:43 CXR: ? RLL effusion Laboratory studies were reviewed, BNP increased from 7141 to 21,843 AG 19 CO2 20 Troponin negative for myocardial injury. Patient and her family were updated on all results, will re-admit the patient for exacerbation of CHF and further evaluation. Reevaluation #3: 01/09/18 06:55 Case was discussed with Dr. Munguia, will accept admission at this time. Medical Decision Making - Lab Data Result diagrams: 01/08/18 22:30 01/08/18 22:30 Disposition Disposition: Admit Clinical Impression: CHF (congestive heart failure) Qualifiers: Heart failure type: other Qualified Code(s): I50.9 - Heart failure, unspecified Disposition: Still a Patient at [facility] Decision to Admit: Admit from ER Decision to Admit Date: 01/08/18 Decision to Admit Time: 23:57 Condition: (2) Stable Time of Disposition: 23:57 Quality - Quality Measures Quality Measures: N/A - Blood Pressure Screening Does Patient Have Any of the Following: Active Dx of HTN Blood Pressure Classification: Normal BP Reading Systolic Measurement: 92 Diastolic Measurement: 44 Screening for High Blood Pressure: Patient Exclusion, Hx of HTN [[id number]]
[2018-01-08 23:23] LABS: BASO % 0.1 % (0-6); BLOOD UREA NITROGEN 26 mg/dL (8-23); GRAN % 77.8 % (47-80); HEMOGLOBIN 15.6 gm/dl (11.6-16.0); LYMPH % 14.4 % (16-45); MEAN CELL VOLUME 98.9 fl (81-97); MEAN CORPUSCULAR HEMOGLOBIN 34.3 pg (27-33); MEAN CORPUSCULAR HGB CONC 34.7 g/dl (32-36); MEAN PLATELET VOLUME 14.5 fl (7.4-10.4); MONO % 7.7 % (0-9); PLATELET COUNT 173 K/uL (130-400); RED BLOOD COUNT 4.55 M/uL (3.80-5.40); RED CELL DISTRIBUTION WIDTH 13.5 % (11.5-14.5)
[2018-01-08 23:24] LABS: CREATININE 0.7 mg/dL (0.5-0.9); EST GLOMERULAR FILTRATION RATE > 60 mL/min; TOTAL PROTEIN 6.4 g/dL (6.6-8.7)
[2018-01-08 23:26] LABS: GLUCOSE,RANDOM 188 mg/dL (74-109)
[2018-01-08 23:29] LABS: ALB/GLOB RATIO 1.7 (1.1-1.8); ALKALINE PHOSPHATASE 50 U/L (35-104); ALT/SGPT 28 U/L (<33); AST/SGOT 29 U/L (10.0-35.0)
[2018-01-08] MEDS ORDERED: FUROSEMIDE IV 20MG/2ML VIAL IVP ONE (23:42)
[2018-01-09] MEDS ORDERED: ALBUTEROL HFA 8 GM INHALER INH PRN ×2 (00:21→01:04)
[2018-01-09] MEDS: SPIRONOLACTONE 25 MG TAB PO SCH (09:33)
[2018-01-09] MEDS: OXYBUTYNIN CHLORIDE 5MG TABLET PO SCH ×3 (09:33→21:10)
[2018-01-09] MEDS: ASPIRIN 81 MG TABEC PO SCH (09:33)
[2018-01-09] MEDS: FUROSEMIDE IV 20MG/2ML VIAL IVP SCH (09:34)
[2018-01-09] MEDS: CARVEDILOL 3.125 MG TABLET PO SCH ×2 (09:34→21:10)
[2018-01-09] MEDS ORDERED: LATANOPROST 0.005% OPTH SOLUTION 2.5ML BOTTLE OPTH SCH (10:00)
--- NOTE | 2018-01-09 12:09 | History & Physical ---
History of Present Illness - Date of Service Date of Service for History & Physical: 01/09/18 - History of Present Illness Admitting Diagnosis: Acute exacerbation CHF. Dyspnea History of Present Illness: Mrs. Nielson is a 77 y/o female with CHF who was discharged yesterday from [facility]. She went home and complained of having shortness of breath the same as when she initially came in on Thursday morning. The patient's BNP was elevated to 21K from 7K on initial visit yesterday and all other labs wee normal. ECG did not show any new findings. Travel Screening - Travel/Exposure Within Last 30 Days Have you traveled within the last 30 days?: No - Travel/Exposure Within Last Year Have you traveled outside the [place] in the last year?: No - Additonal Travel Details Have you been exposed to anyone with a communicable illness?: No Review of Systems Constitutional: Denies: Chills, Fever, Malaise, Night sweats Eyes: Denies: Eye discharge, Eye pain ENT: Denies: Congestion, Ear pain, Epistaxis Respiratory: Reports: Dyspnea. Denies: Cough, Hemoptysis Cardiovascular: Reports: Dyspnea on exertion. Denies: Chest pain, Edema Endocrine: Denies: Fatigue, Heat or cold intolerance Gastrointestinal: Denies: Abdominal pain, Nausea, Vomiting Genitourinary: Denies: Incontinence, Retention Musculoskeletal: Denies: Back pain, Gout, Joint swelling Skin: Denies: Bruising, Change in color Neurological: Denies: Abnormal gait, Confusion, Headache, Seizure Psychiatric: Denies: Anxiety Hematological/Lymphatic: Denies: Anemia, Blood Clots Past Medical History - SOCIAL HISTORY Smoking Status: Never smoker Drug Use: None - RESPIRATORY Hx Respiratory Disorders: No - CARDIOVASCULAR Hx Cardio Disorders: Yes Hx CHF: Yes (hx of when cardiomyopathy started) Hx Edema: Yes (hx of) Hx Hypertension: Yes (on meds good control) Comment:: cardiomyopathy dx'd 2003. stable now. works out 40 mins a day and walks nirmal - NEURO Hx Neuro Disorders: No - GI Hx GI Disorders: No - Hx Genitourinary Disorders: Yes Hx Bladder Problem: Yes (bladder pressure) - ENDOCRINE Hx Endocrine Disorders: No - MUSCULOSKELETAL Hx Musculoskeletal Disorders: Yes Hx Osteoporosis: Yes - PSYCH Hx Psych Problems: Yes Hx Anxiety: Yes - HEMATOLOGY/ONCOLOGY Hx Hematology/Oncology Disorders: No Family Medical History Any Significant Family History?: No H&P Meds/Allergies - Allergies Allergies: Allergies Allergy/AdvReac Type Severity Reaction Status Date / Time denosumab [From Prolia] Allergy SWELLING Verified 02/27/15 15:35 OF THE TONGUE Sulfa (Sulfonamide Allergy PT UNSURE Verified 02/27/15 15:35 Antibiotics) OF REACTION - Home Medications Previous Rx's Medication Instructions Recorded Albuterol Sulfate [Proair Hfa] 1 - 2 puff IH .EVERY 4-6 HOURS PRN 01/08/18 #1 inhaler - Active Medications Active Medications: Current Medications Acetaminophen (Tylenol 500mg Tab) 1,000 mg PO Q6H PRN PRN Reason: PAIN - MILD(1-4)/FEVER Albuterol Sulfate (Ventolin Hfa) 1 puff INH Q4HR PRN PRN Reason: DIFFICULTY IN BREATHING Albuterol Sulfate (Ventolin Hfa) 2 puff INH Q4HR PRN PRN Reason: DIFFICULTY IN BREATHING Aspirin (Ecotrin (Ec)) 81 mg PO DAILY [facility] Last Admin: 01/09/18 09:33 Dose: 81 mg Carvedilol (Coreg) 6.25 mg PO BID [facility] Last Admin: 01/09/18 09:34 Dose: 6.25 mg Furosemide (Lasix Iv) 20 mg IVP DAILY [facility] Last Admin: 01/09/18 09:34 Dose: 20 mg Latanoprost (Xalatan) 1 drop OPTH BID [facility] Oxybutynin Chloride (Ditropan) 5 mg PO TID [facility] Last Admin: 01/09/18 09:33 Dose: 5 mg Spironolactone (Aldactone) 12.5 mg PO DAILY [facility] Last Admin: 01/09/18 09:33 Dose: 12.5 mg Physical Exam - Vital Signs Vital Signs: Vital Signs - Last 24 Hrs Temp Pulse Pulse Resp BP BP Pulse Ox 01/09/18 09:54 87 16 97 01/09/18 09:50 18 01/09/18 09:00 98.1 F 77 18 93/55 96 01/09/18 08:21 79 20 01/09/18 05:00 97.6 F 79 20 92/44 95 01/09/18 00:59 87 18 01/09/18 00:37 105 H 22 94 L 01/09/18 00:35 97.5 F L 87 22 123/71 97 01/08/18 23:40 93 H 103/60 94 L 01/08/18 22:37 97.6 F 87 22 129/73 96 - General General Appearance: Alert, Oriented x3, Cooperative, Mild distress, Anxious Limitations: No limitations - Head Head exam: Atraumatic, Normocephalic, Normal inspection Head exam detail: negative: Abrasion, Contusion, Edwards's sign, General tenderness, Hematoma, Laceration - Eye Eye exam: Normal appearance. negative: Conjunctival injection, Periorbital swelling, Periorbital tenderness, Scleral icterus - ENT Ear exam: negative: Auricular hematoma, Auricular trauma Nasal Exam: negative: Active bleeding, Discharge, Dried blood, Foreign body Mouth exam: negative: Drooling, Laceration, Muffled voice, Tongue elevation - Neck Neck exam: Normal inspection. negative: Meningismus, Tenderness - Respiratory Respiratory exam: Decreased breath sounds. negative: Rales, Respiratory distress, Rhonchi, Stridor, Wheezes - Cardiovascular Cardiovascular Exam: Regular rate, Normal rhythm, Normal heart sounds - GI/Abdominal GI/Abdominal exam: Soft. negative: Rebound, Rigid, Tenderness - Rectal Rectal exam: Deferred - exam: Deferred - Extremities Extremities exam: negative: Pedal edema, Tenderness - Back Back exam: Denies: CVA tenderness (R), CVA tenderness (L) - Neurological Neurological exam: Alert, Normal gait, Oriented X3 - Psychiatric Psychiatric exam: Normal affect, Normal mood - Skin Skin exam: Normal color. negative: Abrasion Type of lesion: negative: abrasion Results - Labs Result Diagrams: 01/08/18 22:30 01/08/18 22:30 Labs Last 24 Hours: Laboratory Results - last 24 hr 01/08/18 01/08/18 01/08/18 22:30 22:30 22:30 WBC 10.0 RBC 4.55 Hgb 15.6 Hct 45.0 MCV 98.9 H MCH 34.3 H MCHC 34.7 RDW 13.5 Plt Count 173 MPV 14.5 H Gran % 77.8 Lymphocytes % 14.4 L Monocytes % 7.7 Eosinophils % 0.0 Basophils % 0.1 Sodium 133 L Potassium 4.8 H Chloride 94 L Carbon Dioxide 20.0 L Anion Gap 19.0 H BUN 26 H Creatinine 0.7 Estimated GFR > 60 Random Glucose 188 H Calcium 9.6 Total Bilirubin 0.70 AST 29 ALT 28 Alkaline Phosphatase 50 Troponin T < 0.010 NT-Pro-B Natriuret Pep 66806.00 H Total Protein 6.4 L Albumin 4.0 Globulin 2.4 Albumin/Globulin Ratio 1.7 VTE H&P Assessment - Risk for VTE Risk for VTE: Yes Risk Level: Moderate Risk Assessment Date: 01/09/18 Risk Assessment Time: 12:04 VTE Orders Placed or Will Be Placed: Yes Plan - Inpatient Certification Inpatient Certification: Admit to inpatient care: Based on my medical assessment, after consideration of patient's risk factors (age, co-morbidities and patient presenting symptoms and acuity), I expect that this patient will remain in the hospital greater than or equal to two midnights and that the services needed warrant inpatient care because: Patient Risk Factors: CHF Estimated length of stay: 3 days The patient may reasonably be expected to be discharged or transferred to a hospital within 96 hours after admission to [facility]. Services needed: Cardiology - echo I certify that my determination is in accordance with my understanding of Medicare requirements for reasonable and necessary inpatient services. 01/09/18 12:09 - Detailed Diagnosis and Plan (1) CHF (congestive heart failure) Current Visit: Yes Status: Chronic Qualifiers: Heart failure type: other Qualified Code(s): I50.9 - Heart failure, unspecified Base Code: I50.9 - HEART FAILURE, UNSPECIFIED Comment: 01/09/18: - hx CHF, last echo?, BNP > 7471, CXR: no volume overload. EKG: NSR, no acute ST -T wave changes. Troponins negative. No evidence of acute exacerbation. - resume Aldactone 12.5md daily, Coreg 6.25mg BID, ASA 81mg. Lasix 20mg - ordered 2D echo, pending Cardiology on Thursday. Re-check labs in the morning. (2) Exertional dyspnea Current Visit: No Status: Acute Base Code: R06.09 - OTHER FORMS OF DYSPNEA Comment: 01/09/18: - CXR: showing hyperinflation of bilateral lungs with possile infiltrate vs. effusion of the right lower lung. - Albuterol Q4H PRN , solumedrol 125mg once in ED, D/C solumedrol 60mg. - BNP 7141, 2D echo ordered. Follow up with Cardiology outpatient. (3) Failure to thrive in adult Current Visit: No Status: Acute Base Code: R62.7 - ADULT FAILURE TO THRIVE Comment: 01/09/18: - pt reports poor PO intake due to loss of appetite. - symptoms appear to be more psychological that and she may benefit from an antidepressant. - regular diet ordered. (4) Full code status Current Visit: No Status: Acute Base Code: Z78.9 - OTHER SPECIFIED HEALTH STATUS Comment: 01/09/18: - FULL CODE - Will discuss code status with patient. - Disposition Pending Cardiology and Echo on Thursday.
[2018-01-09] MEDS: LATANOPROST 0.005% OPTH SOLUTION 2.5ML BOTTLE OPTH SCH (21:15)
[2018-01-10 06:36] LABS: BLOOD UREA NITROGEN 21 mg/dL (8-23); CREATININE 0.7 mg/dL (0.5-0.9); EST GLOMERULAR FILTRATION RATE > 60 mL/min; GLUCOSE,RANDOM 94 mg/dL (74-109)
--- NOTE | 2018-01-10 08:18 | RADIOLOGY REPORT ---
EXAM: CHEST 2 VIEWS HISTORY: CHEST PAIN. TECHNIQUE: Frontal and lateral views of the chest. COMPARISON: 01/07/18 chest x-ray. FINDINGS: Stable cardiomegaly. Atheromatous change, thoracic aorta. Osteopenia. Bilateral pleural effusions, greater on the left with diffuse interstitial edema. No discrete pneumothorax. Underlying COPD. IMPRESSION: CARDIOMEGALY WITH CHF PATTERN, ABOVE. SIMILAR FINDINGS WERE PRESENT PREVIOUSLY. JOB NUMBER: [id number] MTDD
[2018-01-10] MEDS: ASPIRIN 81 MG TABEC PO SCH (10:05)
[2018-01-10] MEDS: CARVEDILOL 3.125 MG TABLET PO SCH ×2 (10:06→21:15)
[2018-01-10] MEDS: SPIRONOLACTONE 25 MG TAB PO SCH (10:06)
[2018-01-10] MEDS: OXYBUTYNIN CHLORIDE 5MG TABLET PO SCH ×3 (10:08→21:11)
--- NOTE | 2018-01-10 10:43 | Physician Progress Note ---
Subjective - Date Date of Physician Progress Note: 01/10/18 - Subjective Subjective Comment: The patient is awake, alert and oriented at bedside exam this morning. She denies having shortness of breath or chest pain but says that she felt a little dizzy this morning. She says that she always has some dizziness when she eats a lot and this morning she had a very bug breakfast. At present she is feeling better and has no other complaint. Objective - Vital Signs Vital Signs: Vital Signs - Last 24 Hrs Temp Pulse Pulse Resp BP BP Pulse Ox 01/10/18 08:16 81 16 01/10/18 07:50 97.4 F L 86 18 121/59 95 01/10/18 05:00 97.6 F 76 18 97/63 95 01/10/18 00:47 97.5 F L 83 18 98/59 95 01/09/18 20:04 83 18 01/09/18 20:00 97.6 F 89 20 102/54 97 01/09/18 19:54 97.9 F 95/50 01/09/18 17:00 97.9 F 83 18 95/50 98 01/09/18 16:11 100 H 20 95 01/09/18 13:00 98.7 F 87 18 104/55 94 L - General General Appearance: Alert, Oriented x3, Cooperative, Mild distress, Anxious Limitations: No limitations - Head Head exam: Atraumatic, Normocephalic, Normal inspection Head exam detail: negative: Abrasion, Contusion, Edwards's sign, General tenderness, Hematoma, Laceration - Eye Eye exam: Normal appearance. negative: Conjunctival injection, Periorbital swelling, Periorbital tenderness, Scleral icterus - ENT Ear exam: negative: Auricular hematoma, Auricular trauma Nasal Exam: negative: Active bleeding, Discharge, Dried blood, Foreign body Mouth exam: negative: Drooling, Laceration, Muffled voice, Tongue elevation - Neck Neck exam: Normal inspection. negative: Meningismus, Tenderness - Respiratory Respiratory exam: Decreased breath sounds. negative: Rales, Respiratory distress, Rhonchi, Stridor, Wheezes - Cardiovascular Cardiovascular Exam: Regular rate, Normal rhythm, Normal heart sounds - GI/Abdominal GI/Abdominal exam: Soft. negative: Rebound, Rigid, Tenderness - Rectal Rectal exam: Deferred - exam: Deferred - Extremities Extremities exam: negative: Pedal edema, Tenderness - Back Back exam: Denies: CVA tenderness (R), CVA tenderness (L) - Neurological Neurological exam: Alert, Normal gait, Oriented X3 - Psychiatric Psychiatric exam: Normal affect, Normal mood - Skin Skin exam: Normal color. negative: Abrasion Type of lesion: negative: abrasion Assessment and Plan - Assessment and Plan (1) CHF (congestive heart failure) Current Visit: Yes Status: Chronic Qualifiers: Heart failure type: other Qualified Code(s): I50.9 - Heart failure, unspecified Base Code: I50.9 - HEART FAILURE, UNSPECIFIED Comment: 01/10/18: - hx CHF, last echo?, BNP > 7471, CXR: no volume overload. EKG: NSR, no acute ST -T wave changes. Troponins negative. No evidence of acute exacerbation. - resume Aldactone 12.5md daily, Coreg 3.125mg BID, ASA 81mg. Lasix 20mg PRN for shortness of breath. Monitor showing PVCs and trigeminy but no acute changes. - o2D echo, pending Cardiology on Thursday. BMP and Mg in am. (2) Exertional dyspnea Current Visit: No Status: Acute Base Code: R06.09 - OTHER FORMS OF DYSPNEA Comment: 01/10/18: - CXR: showing hyperinflation of bilateral lungs with possile infiltrate vs. effusion of the right lower lung. - Albuterol nebs Q4H PRN - BNP 7141, 2D echo ordered. Follow up with Cardiology outpatient. (3) Failure to thrive in adult Current Visit: No Status: Acute Base Code: R62.7 - ADULT FAILURE TO THRIVE Comment: 01/10/18: - pt reports poor PO intake due to loss of appetite. - symptoms appear to be more psychological that and she may benefit from an antidepressant. - regular diet, supplemental drinks with meals. (4) Full code status Current Visit: No Status: Acute Base Code: Z78.9 - OTHER SPECIFIED HEALTH STATUS Comment: 01/10/18: - FULL CODE - Discussed with patient and she wants to remain full code. DPSTEPHANI is her daughter (Lita Vo) - Disposition Disposition: Pending Cardiology and Echo on Thursday. Results - Labs Result Diagrams: 01/08/18 22:30 01/10/18 06:05 Labs Last 24 Hours: Laboratory Results - last 24 hr 01/10/18 06:05 Sodium 136 Potassium 4.0 Chloride 97 L Carbon Dioxide 29.0 Anion Gap 10.0 BUN 21 Creatinine 0.7 Estimated GFR > 60 Random Glucose 94 Calcium 9.1 DVT/PE Assessment - Risk for VTE Risk for VTE: No Risk Level: Moderate Risk Assessment Date: 01/09/18 Risk Assessment Time: 12:04 VTE Orders Placed or Will Be Placed: Yes - Active Medicaitons Current Medications: Current Medications Acetaminophen (Tylenol 500mg Tab) 1,000 mg PO Q6H PRN PRN Reason: PAIN - MILD(1-4)/FEVER Albuterol Sulfate (Ventolin Hfa) 1 puff INH Q4HR PRN PRN Reason: DIFFICULTY IN BREATHING Albuterol Sulfate (Ventolin Hfa) 2 puff INH Q4HR PRN PRN Reason: DIFFICULTY IN BREATHING Aspirin (Ecotrin (Ec)) 81 mg PO DAILY [facility] Last Admin: 01/10/18 10:05 Dose: 81 mg Carvedilol (Coreg) 6.25 mg PO BID [facility] Last Admin: 01/10/18 10:06 Dose: 3.125 mg Furosemide (Lasix Iv) 20 mg IVP DAILY [facility] Last Admin: 01/09/18 09:34 Dose: 20 mg Latanoprost (Xalatan) 1 drop OPTH QHS [facility] Last Admin: 01/09/18 21:15 Dose: 1 drop Oxybutynin Chloride (Ditropan) 5 mg PO TID [facility] Last Admin: 01/10/18 10:08 Dose: 5 mg Spironolactone (Aldactone) 12.5 mg PO DAILY [facility] Last Admin: 01/10/18 10:06 Dose: 12.5 mg AMI Plan - Labs Result Diagrams: 01/08/18 22:30 01/10/18 06:05
[2018-01-10] MEDS ORDERED: FUROSEMIDE 20 MG TABLET PO PRN (10:47)
[2018-01-10] MEDS: FUROSEMIDE IV 20MG/2ML VIAL IVP SCH (13:32)
[2018-01-10] MEDS: LATANOPROST 0.005% OPTH SOLUTION 2.5ML BOTTLE OPTH SCH (21:12)
[2018-01-11 06:32] LABS: BLOOD UREA NITROGEN 14 mg/dL (8-23); CREATININE 0.7 mg/dL (0.5-0.9); EST GLOMERULAR FILTRATION RATE > 60 mL/min; GLUCOSE,RANDOM 76 mg/dL (74-109)
[2018-01-11] MEDS: CARVEDILOL 3.125 MG TABLET PO SCH ×2 (09:07→21:21)
[2018-01-11] MEDS: OXYBUTYNIN CHLORIDE 5MG TABLET PO SCH ×3 (09:07→21:21)
[2018-01-11] MEDS: SPIRONOLACTONE 25 MG TAB PO SCH (09:07)
[2018-01-11] MEDS: ASPIRIN 81 MG TABEC PO SCH (09:08)
--- NOTE | 2018-01-11 09:20 | Physician Progress Note ---
Subjective - Date Date of Physician Progress Note: 01/11/18 - Subjective Subjective Comment: The patient is awake, alert and oriented continues to improve. At present she is feeling better and has no other complaint. Objective - Vital Signs Vital Signs: Vital Signs - Last 24 Hrs Temp Pulse Resp BP Pulse Ox 01/11/18 08:45 97.9 F 18 103/54 01/11/18 04:12 97.5 F L 75 18 110/46 95 01/11/18 00:58 97.5 F L 76 18 104/49 95 01/10/18 21:00 86 18 01/10/18 19:32 97.5 F L 86 18 108/57 95 01/10/18 17:00 97.4 F L 87 18 102/70 98 01/10/18 13:00 97.5 F L 81 18 102/56 98 - General General Appearance: Alert, Oriented x3, Cooperative, Mild distress, Anxious Limitations: No limitations - Head Head exam: Atraumatic, Normocephalic, Normal inspection Head exam detail: negative: Abrasion, Contusion, Edwards's sign, General tenderness, Hematoma, Laceration - Eye Eye exam: Normal appearance. negative: Conjunctival injection, Periorbital swelling, Periorbital tenderness, Scleral icterus - ENT Ear exam: negative: Auricular hematoma, Auricular trauma Nasal Exam: negative: Active bleeding, Discharge, Dried blood, Foreign body Mouth exam: negative: Drooling, Laceration, Muffled voice, Tongue elevation - Neck Neck exam: Normal inspection. negative: Meningismus, Tenderness - Respiratory Respiratory exam: Decreased breath sounds. negative: Rales, Respiratory distress, Rhonchi, Stridor, Wheezes - Cardiovascular Cardiovascular Exam: Regular rate, Normal rhythm, Normal heart sounds Peripheral Pulses: 3+: Radial (R), Radial (L), Dorsalis Pedis (R), Dorsalis Pedis (L) - GI/Abdominal GI/Abdominal exam: Soft. negative: Rebound, Rigid, Tenderness - Rectal Rectal exam: Deferred - exam: Deferred - Extremities Extremities exam: negative: Pedal edema, Tenderness - Back Back exam: Denies: CVA tenderness (R), CVA tenderness (L) - Neurological Neurological exam: Alert, Normal gait, Oriented X3 - Psychiatric Psychiatric exam: Normal affect, Normal mood - Skin Skin exam: Normal color. negative: Abrasion Type of lesion: negative: abrasion Assessment and Plan - Assessment and Plan (1) CHF (congestive heart failure) Current Visit: Yes Status: Chronic Qualifiers: Heart failure type: other Qualified Code(s): I50.9 - Heart failure, unspecified Base Code: I50.9 - HEART FAILURE, UNSPECIFIED Comment: 01/11/18: - hx CHF, last echo?, BNP > 7471, CXR: no volume overload. EKG: NSR, no acute ST -T wave changes. Troponins negative. No evidence of acute exacerbation. - resume Aldactone 12.5md daily, Coreg 3.125mg BID, ASA 81mg. Lasix 20mg PRN for shortness of breath. Monitor showing PVCs and trigeminy but no acute changes. - 2D echo, pending Cardiology consult and echo, BMP and Mg within normal limits. (2) Exertional dyspnea Current Visit: No Status: Acute Base Code: R06.09 - OTHER FORMS OF DYSPNEA Comment: 01/11/18: - CXR: showing hyperinflation of bilateral lungs with possile infiltrate vs. effusion of the right lower lung. - Albuterol nebs Q4H PRN - BNP 7141, 2D echo pending Follow up with Cardiology outpatient. (3) Failure to thrive in adult Current Visit: No Status: Acute Base Code: R62.7 - ADULT FAILURE TO THRIVE Comment: 01/11/18: - regular diet, supplemental drinks with meals. (4) Full code status Current Visit: No Status: Acute Base Code: Z78.9 - OTHER SPECIFIED HEALTH STATUS Comment: 01/11/18: - FULL CODE - Discussed with patient and she wants to remain full code. SHANTANU is her daughter (Lita Vo) - Disposition Disposition: D/C today pending echo and cardiology consult. Results - Labs Result Diagrams: 01/08/18 22:30 01/11/18 06:01 Labs Last 24 Hours: Laboratory Results - last 24 hr 01/11/18 06:01 Sodium 139 Potassium 3.7 Chloride 99 Carbon Dioxide 30.0 H Anion Gap 10.0 BUN 14 Creatinine 0.7 Estimated GFR > 60 Random Glucose 76 Calcium 9.3 Magnesium 2.1 DVT/PE Assessment - Risk for VTE Risk for VTE: No Risk Level: Moderate Risk Assessment Date: 01/09/18 Risk Assessment Time: 12:04 VTE Orders Placed or Will Be Placed: Yes - Active Medicaitons Current Medications: Current Medications Acetaminophen (Tylenol 500mg Tab) 1,000 mg PO Q6H PRN PRN Reason: PAIN - MILD(1-4)/FEVER Albuterol Sulfate (Ventolin Hfa) 1 puff INH Q4HR PRN PRN Reason: DIFFICULTY IN BREATHING Albuterol Sulfate (Ventolin Hfa) 2 puff INH Q4HR PRN PRN Reason: DIFFICULTY IN BREATHING Aspirin (Ecotrin (Ec)) 81 mg PO DAILY [facility] Last Admin: 01/11/18 09:08 Dose: 81 mg Carvedilol (Coreg) 3.125 mg PO BID [facility] Last Admin: 01/11/18 09:07 Dose: 3.125 mg Furosemide (Lasix) 20 mg PO DAILY PRN PRN Reason: DIFFICULTY IN BREATHING Latanoprost (Xalatan) 1 drop OPTH QHS [facility] Last Admin: 01/10/18 21:12 Dose: 1 drop Oxybutynin Chloride (Ditropan) 5 mg PO TID [facility] Last Admin: 01/11/18 09:07 Dose: 5 mg Spironolactone (Aldactone) 12.5 mg PO DAILY [facility] Last Admin: 01/11/18 09:07 Dose: 12.5 mg AMI Plan - Labs Result Diagrams: 01/08/18 22:30 01/11/18 06:01
--- NOTE | 2018-01-11 11:23 | Discharge Summary ---
Providers Discharge Summary Date: 01/11/18 Date of admission: 01/09/18 00:26 Attending physician: GODWIN DIEGO Primary care physician: NAIF JETER D.O. Consults: Consult Orders 01/10/18 13:00 Consult - Cardiology NOW Consulting Provider: LIANNA CORTES Physician Instructions: Reason For Exam: CHF exacerbation Does pt have current manager fast food?: Heidi Physical Exam - Vital Signs Vital Signs: Vital Signs - Last 24 Hrs Temp Pulse Resp BP BP Pulse Ox 01/11/18 09:19 97.5 F L 102/56 01/11/18 09:00 75 18 01/11/18 08:45 97.9 F 18 103/54 01/11/18 04:12 97.5 F L 75 18 110/46 95 01/11/18 00:58 97.5 F L 76 18 104/49 95 01/10/18 21:00 86 18 01/10/18 19:32 97.5 F L 86 18 108/57 95 01/10/18 17:00 97.4 F L 87 18 102/70 98 01/10/18 13:00 97.5 F L 81 18 102/56 98 - General General Appearance: Alert, Oriented x3, Cooperative, Mild distress, Anxious Limitations: No limitations - Head Head exam: Atraumatic, Normocephalic, Normal inspection Head exam detail: negative: Abrasion, Contusion, Edwards's sign, General tenderness, Hematoma, Laceration - Eye Eye exam: Normal appearance. negative: Conjunctival injection, Periorbital swelling, Periorbital tenderness, Scleral icterus - ENT Ear exam: negative: Auricular hematoma, Auricular trauma Nasal Exam: negative: Active bleeding, Discharge, Dried blood, Foreign body Mouth exam: negative: Drooling, Laceration, Muffled voice, Tongue elevation - Neck Neck exam: Normal inspection. negative: Meningismus, Tenderness - Respiratory Respiratory exam: Decreased breath sounds. negative: Rales, Respiratory distress, Rhonchi, Stridor, Wheezes - Cardiovascular Cardiovascular Exam: Regular rate, Normal rhythm, Normal heart sounds Peripheral Pulses: 3+: Radial (R), Radial (L), Dorsalis Pedis (R), Dorsalis Pedis (L) - GI/Abdominal GI/Abdominal exam: Soft. negative: Rebound, Rigid, Tenderness - Rectal Rectal exam: Deferred - exam: Deferred - Extremities Extremities exam: negative: Pedal edema, Tenderness - Back Back exam: Denies: CVA tenderness (R), CVA tenderness (L) - Neurological Neurological exam: Alert, Normal gait, Oriented X3 - Psychiatric Psychiatric exam: Normal affect, Normal mood - Skin Skin exam: Normal color. negative: Abrasion Type of lesion: negative: abrasion Hospitalization - Hospitalization Admission Diagnosis: Acute exacerbation CHF. Dyspnea - Problem List/Discharge Diagnosis (1) CHF (congestive heart failure) Current Visit: Yes Status: Chronic Discharge Diagnosis: Heart failure type: other Qualified Code(s): I50.9 - Heart failure, unspecified Base Code: I50.9 - HEART FAILURE, UNSPECIFIED Comment: 01/11/18: - hx CHF, last echo?, BNP > 7471, CXR: no volume overload. EKG: NSR, no acute ST -T wave changes. Troponins negative. No evidence of acute exacerbation. - resume Aldactone 12.5md daily, Coreg 3.125mg BID, ASA 81mg. Lasix 20mg PRN for shortness of breath. Monitor showing PVCs and trigeminy but no acute changes. - 2D echo, pending Cardiology consult and echo, BMP and Mg within normal limits. (2) Exertional dyspnea Current Visit: No Status: Acute Base Code: R06.09 - OTHER FORMS OF DYSPNEA Comment: 01/11/18: - CXR: showing hyperinflation of bilateral lungs with possile infiltrate vs. effusion of the right lower lung. - Albuterol nebs Q4H PRN - BNP 7141, 2D echo pending Follow up with Cardiology outpatient. (3) Failure to thrive in adult Current Visit: No Status: Acute Base Code: R62.7 - ADULT FAILURE TO THRIVE Comment: 01/11/18: - regular diet, supplemental drinks with meals. (4) Full code status Current Visit: No Status: Acute Base Code: Z78.9 - OTHER SPECIFIED HEALTH STATUS Comment: 01/11/18: - FULL CODE - Discussed with patient and she wants to remain full code. DPOA is her daughter (Lita Vo) - Disposition D/C today pending echo and cardiology consult. - Hospitalization Course Hospital Course: Mrs. Nielson is a 77 y/o female with CHF who was discharged yesterday from [facility]. She went home and complained of having shortness of breath the same as when she initially came in on Thursday morning. The patient's BNP was elevated to 21K from 7K on initial visit yesterday and all other labs wee normal. ECG did not show any new findings. 01/09/18 - 01/11/18: The patient has not any shortness of breath since admission. She is able to ambulate without any chest pain or respiratory distress and hos not required supplemental oxygen. IV Lasix was discontinued and change to 20mg PO PRN dosing. shelter monitor showed trigeminy and PVCs but not other acute changes have been identified. 2D echo...... Procedures: Imaging and X-Rays 01/08/18 22:52 CHEST 2 VIEWS [RAD] Stat Cardiology Procedures 01/08/18 22:55 EKG NOW 01/09/18 00:21 Shelter Monitor .Continuous 01/11/18 07:25 Echocardiogram 2D - Complete NOW Abnormal Labs: Abnormal Lab Results 01/08/18 01/08/18 01/10/18 Range/Units 22:30 22:30 06:05 MCV 98.9 H (81-97) fl MCH 34.3 H (27-33) pg MPV 14.5 H (7.4-10.4) fl Lymphocytes % 14.4 L (16-45) % Sodium 133 L (136-145) mmol/L Potassium 4.8 H (3.4-4.5) mmol/L Chloride 94 L 97 L (98-107) mmol/L Carbon Dioxide 20.0 L (22-29) mmol/L Anion Gap 19.0 H (7-16) BUN 26 H (8-23) mg/dL Random Glucose 188 H (74-109) mg/dL NT-Pro-B Natriuret Pep 14554.00 H (<450) pg/mL Total Protein 6.4 L (6.6-8.7) g/dL 01/11/18 Range/Units 06:01 MCV (81-97) fl MCH (27-33) pg MPV (7.4-10.4) fl Lymphocytes % (16-45) % Sodium (136-145) mmol/L Potassium (3.4-4.5) mmol/L Chloride (98-107) mmol/L Carbon Dioxide 30.0 H (22-29) mmol/L Anion Gap (7-16) BUN (8-23) mg/dL Random Glucose (74-109) mg/dL NT-Pro-B Natriuret Pep (<450) pg/mL Total Protein (6.6-8.7) g/dL Condition at Discharge: (2) Stable Discharge Medications - Discharge Medications Prescriptions: Furosemide [Lasix] 20 mg PO DAILY PRN #10 tablet PRN Reason: Difficulty In Breathing Home Medications: Ambulatory Orders Aspirin [Ecotrin] 81 mg PO DAILY 11/19/16 [Last Taken Unknown] Calcium Carbonate/Vitamin D3 [Calcium 500-Vit D3 400 Tablet] 1 each PO BID 11/19 [Last Taken Unknown] Carvedilol 3.125 mg PO BID 11/19/16 [Last Taken Unknown] Cholecalciferol (Vitamin D3) [Vitamin D3] 1,000 unit PO DAILY 11/19/16 [Last Taken Unknown] Latanoprost 0.005% Opth Liliam [Xalatan] 2.5 ml OP BID 11/19/16 [Last Taken Unknown ] Oxybutynin Chloride [Oxybutynin Chloride ER] 15 mg PO DAILY 11/19/16 [Last Taken Unknown] Spironolactone 12.5 mg PO DAILY 11/19/16 [Last Taken Unknown] Albuterol Sulfate [Proair Hfa] 1 - 2 puff IH .EVERY 4-6 HOURS PRN #1 inhaler [Last Taken Unknown] Furosemide [Lasix] 20 mg PO DAILY PRN #10 tablet 01/11/18 [Last Taken Unknown] Discharge Plan - Discharge Instructions Activity at Discharge: Resume Usual Activities As Tolerated Diet at Discharge: Regular Diet, Low Salt Diet Additional Instructions: Follow up as scheduled on Thursday with Dr. Jeter. [facility] you to come to your home on Friday 01/12. Continue taking Aldactone 25mg daily as prescribed Follow up with Dr. Cortes to consider increasing Aldactone or using another diuretic to improve symptoms. Quality Measures - Quality Measures Quality Measures: Advance Directives, Documentation of Current Medications in Medical Record, Elder Maltreatment Screen and Follow-Up Plan, Heart Failure, Screening for High Blood Pressure and F/U Documented - Current Medications Quality Measure: Measure #130: Documentation of Current Medications - Blood Pressure Screening Quality Measure: Screening for High Blood Pressure and Follow-Up Documented Blood Pressure Classification: Normal BP Reading Systolic Measurement: 102 Diastolic Measurement: 56 Screening for High Blood Pressure: < Normal BP, F/U Not Required > [G8783] - Heart Failure (MARIBEL/ARB Therapy) Quality Measure: Heart Failure - Heart Failure (Beta-sacha Therapy) Quality Measure: Heart Failure - Advance Directives Quality Measure: Measure #47: Care Plan Advance Directives Established: No Advance Directives Information Provided To Patient: No Advance Directives on File: No Power of Final Inspector Shuttle: Yes Power of Final Inspector Shuttle Name: Lita Hernandes - Elder Abuse Suspicion Index Screening: Elder Abuse Suspicion Index Screening Rely on people for bathing, dressing, shopping, banking, etc: No Prevented from getting food, clothes, medication, etc: No Made to feel shamed or threatened by someone: No Forced to sign papers or use money against will: No Feel afraid, touched in ways not wanted or hurt physically: No Poor eye contact, withdrawn, malnourished, cuts or bruises: No Screening Result: Negative result EASI Reference Information: Soila MARTINEZ, Kelton C, Irvin D, Elmer Yee.Development and validation of a tool to assist physicians identification of elder abuse: The Elder Abuse Suspicion Index (EASI ). Journal of Elder Abuse and Neglect, 2008; 20 (3): 276-300. - Elder Maltreatment Screen Quality Measures: Elder Maltreatment Screen and Follow-Up Plan Elder Maltreatment Screen: <Negative, No Follow-Up Plan Required> [G8734]
[2018-01-11] MEDS ORDERED: FUROSEMIDE IV 20MG/2ML VIAL IVP ONE (16:25)
[2018-01-11] MEDS: LATANOPROST 0.005% OPTH SOLUTION 2.5ML BOTTLE OPTH SCH (21:21)
[2018-01-11] MEDS: ACETAMINOPHEN 500 MG TABLET PO PRN (21:40)
[2018-01-12] MEDS ORDERED: FUROSEMIDE IV 20MG/2ML VIAL IVP ONE (06:00)
--- NOTE | 2018-01-12 09:01 | Medical Records Consult ---
DATE OF CONSULTATION: 01/11/2018 REASON FOR CONSULTATION: CHF. HISTORY OF PRESENT ILLNESS: Ms. Rinaldi is a very pleasant 77-year-old female with a history of nonischemic cardiomyopathy who presented to [facility] this past Thursday with symptoms of shortness of breath. She was admitted for about twenty-four hours prior to [facility] and was discharged Thursday, however, she presented later that evening with similar complaints of shortness of breath. It is worsened with exertion and she does report associated lower extremity edema as well as orthopnea. The shortness of breath has been worsening for the past one to two weeks. She denies any chest pain or pressure as well as any recent palpitations, fevers, chills, coughing, nausea, vomiting, diaphoresis or any recent bleeding. Since admission to [facility] on Thursday she has been treated with IV Lasix for diuresis. She has also been continued on Carvedilol 3.125 mg b.i.d. as well as Spironolactone 12.5 mg daily which she had previously been taking at home. Today she is feeling much better and has no complaints of shortness of breath. She is off supplemental oxygen and appears very comfortable in bed. She sees Dr. Eugene Waller as an outpatient and was last seen by him in March of 2017. MUGA scan performed in 2012 showed the ejection fraction was 37%. Last cardiac catheterization was performed in 2003 and showed no evidence of any obstructive coronary artery disease. She has been unable to tolerate Isosorbide in the past due to low blood pressures. She had not previously been taking a loop diuretic at home. PAST MEDICAL HISTORY: Nonischemic cardiomyopathy. MEDICATION ALLERGIES: DENOSUMAB AND SULFA. FAMILY HISTORY: She denies any family history of any cardiac conditions. SOCIAL HISTORY: Denies tobacco and alcohol use. OBJECTIVE: Blood pressure is 103/54, respirations are 18, pulse is 75, temperature is 97.9, oxygenation is 95% on room air. CARDIAC MEDICATIONS: Aldactone 12.5 mg once daily, Carvedilol 3.125 mg b.i.d., and Lasix 20 mg p.o. as needed for symptoms of shortness of breath. LABS: Labs on 01/11/18 show a sodium of 139, potassium of 3.7, chloride of 99, CO2 of 30, BUN of 14, creatinine of 0.7 and glucose of 76. PHYSICAL EXAMINATION: GENERAL: Alert and oriented times three in no acute distress. HEENT: Normocephalic, atraumatic. Pupils are equal, round and reactive to light. CARDIAC: Regular rate and rhythm with soft systolic murmur Grade 3 out of 6 best auscultated at the apex. LUNGS: Bilateral inspiratory crackles appreciated in lower lung rice. ABDOMEN: Soft, nontender, bowel sounds times four, nondistended. EXTREMITIES: 2+ radial and pedal pulses with no evidence of peripheral edema. NEUROLOGIC: Cranial nerves II through XII grossly intact. DIAGNOSTICS: EKG performed 01/08/18 shows normal sinus rhythm with intraventricular conduction delay and occasional PVC's. Echocardiogram performed today 01/11/18 shows reduced LV function with ejection fraction 10-15% with global hypokinesis, Grade 2 diastolic dysfunction, severe left atrial enlargement, moderate mitral valve regurgitation, moderate tricuspid valve regurgitation, moderate aortic valve regurgitation, moderate elevation of pulmonary pressure with RBST 50 mmHg, small pericardial effusion, large pleural effusion. ASSESSMENT AND PLAN: ACUTE EXACERBATION OF HEART FAILURE WITH REDUCED EJECTION FRACTION. MS. RINALDI IS A PLEASANT 77-YEAR-OLD FEMALE WITH A HISTORY OF NONISCHEMIC CARDIOMYOPATHY. PREVIOUS MUGA SCAN PERFORMED IN 2012 SHOWED EJECTION FRACTION 37%. PREVIOUS CARDIAC CATHETERIZATION IN 2003 DID NOT SHOW ANY EVIDENCE OF OBSTRUCTIVE CORONARY ARTERY DISEASE. SHE PRESENTS TO [facility] THIS PAST THURSDAY WITH WORSENING DYSPNEA, ORTHOPNEA AND PERIPHERAL EDEMA. SHE HAS IMPROVED OVER THE WEEKEND WITH IV LASIX AND IS NOW FEELING BACK TO BASELINE. SHE APPEARS VERY STABLE AT THIS TIME AND IS OFF ANY SUPPLEMENTAL OXYGEN. SHE HAS BEEN ON CARVEDILOL 3.125 MG B.I.D. AND SPIRONOLACTONE 12.5 MG DAILY WHILE ADMITTED. SHE IS NOW ON ORAL LASIX NEEDED FOR SHORTNESS OF BREATH. COMPLETE 2D ECHOCARDIOGRAM WAS COMPLETED AT THE HOSPITAL TODAY WHICH SHOWED REDUCED LV FUNCTION WITH EF 10-15% WITH GLOBAL HYPOKINESIS, GRADE 2 DIASTOLIC DYSFUNCTION AND MODERATE VALVULAR INSUFFICIENCIES. SHE APPEARS VERY STABLE AT THIS TIME WE WILL PLAN TO GIVE IV LASIX 20 MG TIMES ONE TOMORROW WELL Thursday01/13/18 FOR MORE DIURESIS SHE DOES HAVE A LARGE PLEURAL EFFUSION ON ECHOCARDIOGRAM TODAY. WE WILL CONTINUE WITH CARVEDILOL 3.125 MG B.I.D. AND SPIRONOLACTONE 12.5 MG ONCE DAILY. WE WILL ADD DIGOXIN 125 MCG DAILY IN ADDITION TO LISINOPRIL 2.5 MG DAILY. RECOMMEND MONITORING HER BMP DAILY WELL HER BLOOD PRESSURES CLOSELY SHE DOES HAVE A HISTORY OF LOW SYSTOLIC BLOOD PRESSURE READINGS IN THE PAST ALTHOUGH RECENTLY DENIES ANY LIGHTHEADEDNESS, DIZZINESS, OR ANY SYNCOPAL EPISODES. WE DID DISCUSS PERFORMING LEFT HEART CATHETERIZATION AN OUTPATIENT IT HAS BEEN OVER TEN YEARS SINCE PREVIOUS CARDIAC CATHETERIZATION WITH NEW REDUCTION IN LV FUNCTION. THE PLAN WAS DISCUSSED WITH THE PATIENT AND HER DAUGHTER WHO ARE AGREEABLE WITH THE PLAN. THE PLAN WAS ALSO DISCUSSED WITH DR. BACON WHO WILL BE FOLLOWING UP WITH THE PATIENT IN THE NEXT FORTY-EIGHT HOURS. JOB NUMBER: [id number] MTDD
[2018-01-12] MEDS: DIGOXIN 125 MCG TABLET PO SCH (09:32)
[2018-01-12] MEDS: CARVEDILOL 3.125 MG TABLET PO SCH ×2 (09:33→21:38)
[2018-01-12] MEDS: ASPIRIN 81 MG TABEC PO SCH (09:33)
[2018-01-12] MEDS: SPIRONOLACTONE 25 MG TAB PO SCH (09:34)
[2018-01-12] MEDS: OXYBUTYNIN CHLORIDE 5MG TABLET PO SCH ×3 (09:34→21:37)
[2018-01-12] MEDS: LISINOPRIL 5 MG TABLET PO SCH (09:35)
[2018-01-12] MEDS: ACETAMINOPHEN 500 MG TABLET PO PRN (13:52)
[2018-01-12] MEDS ORDERED: MAGNESIUM HYDROXIDE 30 ML UDC PO PRN (18:40)
[2018-01-12] MEDS: DOCUSATE SODIUM 100 MG CAPSULE PO SCH (21:37)
[2018-01-12] MEDS: LATANOPROST 0.005% OPTH SOLUTION 2.5ML BOTTLE OPTH SCH (21:38)
[2018-01-13] MEDS: ACETAMINOPHEN 500 MG TABLET PO PRN (05:59)
[2018-01-13] MEDS ORDERED: FUROSEMIDE IV 20MG/2ML VIAL IVP ONE (06:00)
[2018-01-13 07:05] LABS: URINE APPEARANCE CLEAR; URINE BILIRUBIN NEGATIVE (NEGATIVE); URINE BLOOD NEGATIVE (NEGATIVE); URINE COLOR YELLOW; URINE GLUCOSE (UA) NEGATIVE (NEGATIVE); URINE KETONE NEGATIVE (NEGATIVE); URINE LEUKOCYTE ESTERASE NEGATIVE (NEGATIVE); URINE NITRITE NEGATIVE (NEGATIVE); URINE PROTEIN NEGATIVE (NEGATIVE); URINE UROBILINOGEN 0.2 E.U./dL (0.20 - 1.00)
[2018-01-13 07:07] LABS: BLOOD UREA NITROGEN 13 mg/dL (8-23); CREATININE 0.7 mg/dL (0.5-0.9); EST GLOMERULAR FILTRATION RATE > 60 mL/min; GLUCOSE,RANDOM 95 mg/dL (74-109)
[2018-01-13] MEDS: OXYBUTYNIN CHLORIDE 5MG TABLET PO SCH (09:13)
[2018-01-13] MEDS: SPIRONOLACTONE 25 MG TAB PO SCH (09:13)
[2018-01-13] MEDS: LISINOPRIL 5 MG TABLET PO SCH (09:14)
[2018-01-13] MEDS: CARVEDILOL 3.125 MG TABLET PO SCH (09:14)
[2018-01-13] MEDS: DOCUSATE SODIUM 100 MG CAPSULE PO SCH (09:14)
[2018-01-13] MEDS: ASPIRIN 81 MG TABEC PO SCH (09:14)
[2018-01-13] MEDS: DIGOXIN 125 MCG TABLET PO SCH (09:15)
--- NOTE | 2018-01-13 12:51 | Discharge Note ---
VTE H&P Assessment - Risk for VTE Risk for VTE: No Risk Level: Moderate Risk Assessment Date: 01/09/18 Risk Assessment Time: 12:04 VTE Orders Placed or Will Be Placed: Yes Discharge Medications - Discharge Medications Prescriptions: Carvedilol [Coreg] 3.125 mg PO BID #60 tablet Digoxin [Lanoxin] 125 mcg PO DAILY #30 tablet Furosemide [Lasix] 20 mg PO DAILY #30 tablet Lisinopril [Zestril] 2.5 mg PO DAILY #30 tablet Home Medications: Ambulatory Orders Aspirin [Ecotrin] 81 mg PO DAILY 11/19/16 [Last Taken Unknown] Calcium Carbonate/Vitamin D3 [Calcium 500-Vit D3 400 Tablet] 1 each PO BID 11/19 [Last Taken Unknown] Carvedilol 3.125 mg PO BID 11/19/16 [Last Taken Unknown] Cholecalciferol (Vitamin D3) [Vitamin D3] 1,000 unit PO DAILY 11/19/16 [Last Taken Unknown] Latanoprost 0.005% Opth Liliam [Xalatan] 2.5 ml OP BID 11/19/16 [Last Taken Unknown ] Oxybutynin Chloride [Oxybutynin Chloride ER] 15 mg PO DAILY 11/19/16 [Last Taken Unknown] Spironolactone 12.5 mg PO DAILY 11/19/16 [Last Taken Unknown] Albuterol Sulfate [Proair Hfa] 1 - 2 puff IH .EVERY 4-6 HOURS PRN #1 inhaler [Last Taken Unknown] Carvedilol [Coreg] 3.125 mg PO BID #60 tablet 01/13/18 [Last Taken Unknown] Digoxin [Lanoxin] 125 mcg PO DAILY #30 tablet 01/13/18 [Last Taken Unknown] Furosemide [Lasix] 20 mg PO DAILY #30 tablet 01/13/18 [Last Taken Unknown] Lisinopril [Zestril] 2.5 mg PO DAILY #30 tablet 01/13/18 [Last Taken Unknown] Discharge Note - Date Date of Discharge Note: 01/13/18 Condition: (2) Stable Additional Instructions: Follow up as scheduled on Thursday with Dr. Jeter. [facility] will contact you to come to your home on Friday 01/12. Continue taking Aldactone 25mg daily as prescribed Follow up with Dr. Waller to consider increasing Aldactone or using another diuretic to improve symptoms. follow up with Dr. Waller in one week in the [facility] clinic Prescriptions: Furosemide [Lasix] 20 mg PO DAILY PRN #10 tablet PRN Reason: Difficulty In Breathing Referrals: NAIF JETER [Primary Care Provider] - Forms: Patient Portal Access Activity at Discharge: Resume Usual Activities As Tolerated
[2018-01-13] MEDS ORDERED: AL HYDROX/MAG HYDROX 30ML UD PO SCH (17:30)
--- NOTE | 2018-01-14 12:31 | Discharge Summary ---
DATE OF ADMISSION: 01/09/2018 DATE OF DISCHARGE: 01/13/2018 Attending physician: Pascual Robles DO Time: 2:18 p.m. DISCHARGE DIAGNOSES: 1. Congestive heart failure. 2. Cardiomyopathy with a 10 to 15% ejection fraction. 3. Status post osteoarthritis. 4. Status post osteoporosis. 5. Status post anxiety. REASON FOR HOSPITALIZATION: This 77-year-old female came to the emergency department short of breath with exertion, was admitted to the hospital for observation, went home and came back, was then readmitted for congestive heart failure. The patient was initially taken care of by Dr. Munguia, I took over on-call on Thursday, 01/12. SIGNIFICANT FINDINGS: Echocardiogram showing an ejection fraction of 10 to 15%. Her previous echo showed about 35% ejection fraction. Consult was obtained with the nurse practitioner of Dr. Galvin and Dr. Waller, Rebekah Perea, with a diagnosis of nonischemic cardiomyopathy, exacerbation of heart failure. She has pleural effusion as seen by echocardiogram. She had a normal heart catheterization in the past by Dr. Waller and she wanted the patient seen by Dr. Galvin when he is here today. EKG showing a sinus rhythm, incomplete left bundle branch block, LVH with secondary repolarization abnormality. No acute changes. X-ray showing cardiomegaly with CHF patterns, similar findings present previously on a chest x-ray 01/07/2018. LABORATORY: Brain natriuretic peptide 21,843, Troponin T was negative. BUN on discharge 13, creatinine 0.7, potassium is 3.9. Urine was negative for a urinary tract infection. Her CBC showed a WBC of 10,000, hemoglobin of 15.6. THERAPY IN THE HOSPITAL: The patient was diuresed cautiously and Lisinopril was started. Carvedilol was kept the same, and digoxin was started at 0.[address] Galvin re-consulted and he was concerned that we could get her too dry with her body habitus, she is at her dry weight now. He wanted the Lasix at 20 mg every other day. Continue the Lisinopril 2.5 mg a day and carvedilol 3.125 twice a day. The patient is tolerating the changes. DISCHARGE INSTRUCTIONS: The patient is to be discharged, follow up with Dr. Mcacll in 1 week as scheduled, follow up with Cardiology Clinic, Dr. Catrachito Waller at this next [facility]. DISCHARGE MEDICATIONS: 1. Tylenol 500 2 q.6 hours p.r.n. 2. Ventolin inhaler q.4 hours p.r.n. 3. Aldactone 12.5 mg per day. 4. Ditropan ER 15 mg a day, 1 daily. 5. Aspirin 81 mg daily. 6. Xalatan eye drops 1 in the eye at bedtime daily. 7. Lasix 20 mg every other day. 8. Coreg 3.125 b.i.d. 9. Lanoxin 0.125 daily. 10. Zestril 2.5 mg daily. MTDD
== END 2018-01-13 15:35 | disposition home or self-care (01) | DRG 293 ==
LOC: ER 22:31 → MEDSURG 01-09 00:26
PROVIDERS: ADMIT Internal Medicine; ATTEND Internal Medicine
DX: I50.9 Heart failure, unspecified (principal); R06.00 Dyspnea, unspecified; I42.9 Cardiomyopathy, unspecified; R62.7 Adult failure to thrive; R06.09 Other forms of dyspnea; I10 Essential (primary) hypertension; M81.0 Age-related osteoporosis without current pathological fracture
CPT/HCPCS: 71046; 80048; 80053; 81003; 83735; 83880; 84484; 85025; 93005; 93010; 93306; 96374; 99223; 99233; 99239; 99285; J1940

== ENCOUNTER 2018-03-18 08:16 | Day surgery (SDC) | payer MEDICARE, BC ==
[2018-03-18] MEDS ORDERED: PROPOFOL 10 MG/ML VIAL IV ONE (08:17)
[2018-03-18] MEDS ORDERED: LIDOCAINE 2% MDV (20MG/ML) 20ML VIAL IV ONE (08:17)
--- NOTE | 2018-03-23 16:30 | Operative Note ---
DATE OF SURGERY: OPERATION: ESOPHAGOGASTRODUODENOSCOPY. PREOPERATIVE DIAGNOSIS: Dysphagia. POSTOPERATIVE DIAGNOSES: 1. Tortuous oropharynx. 2. Otherwise normal upper endoscopy. PROCEDURE: After informed consent was obtained from the patient, she was placed in the left lateral decubitus position in the endoscopy suite, sedated and monitored by the department of anesthesia. Once sedated, a well-lubricated [id number] gastroscope was placed in the posterior oropharynx and under direct visualization passed to the proximal esophagus. Upon insertion of the endoscope, the oropharynx was somewhat narrowed and a bit tortuous. The esophagus itself appeared unremarkable to the level of the GE junction. The GE junction was unremarkable as well. The gastric body, antrum, pylorus, duodenal bulb, and sweep were unremarkable. J-turn views of the proximal stomach were unrevealing. The endoscope was straightened and retracted from the patient with no new findings or abnormalities noted. RECOMMENDATIONS: I will offer her further evaluation in the form of a barium esophagram should she consent. At this point, she seemed a bit reluctant for further testing but if the next step is to be entertained, I believe that would be a reasonable next step. As always, thank you for allowing me to participate in the healthcare of your patients. CC: DO ERIBERTO Serna
== END 2018-03-18 11:04 | disposition home or self-care (01) ==
LOC: HOP 08:16
PROVIDERS: ATTEND Internal Medicine Gastroenterology
DX: R13.12 Dysphagia, oropharyngeal phase (principal); I10 Essential (primary) hypertension; I50.9 Heart failure, unspecified

== ENCOUNTER 2018-07-12 00:45 | Observation (INO) | payer MEDICARE, BC ==
--- NOTE | 2018-07-12 01:00 | Emergency Department Record ---
History of Present Illness - General Chief Complaint: Chest Pain Stated Complaint: CHEST PAIN Time Seen by Provider: 07/12/18 00:51 Source: Patient, Family Mode of Arrival: Wheelchair Limitations: No limitations - History of Present Illness Initial Comments: 78 yo female presents with a concern of chest pain. She has a history of CHF, Cardiomyopathy with EF of 10-15%, LBBB, recent defibrillator placement on week ago. This was an outpatient procedure. No complications with healing. ECHO on 03/29/18 demonstrated EF <20%, Dilated LV, Severe L atrial enlargement. This evening she noted at rest while watching TV a discomfort in the chest and a feeling of palpitations. No syncope. No cough. She does have some shortness of breath. The chest discomfort was the mid chest. She states it is nearly resolved. Dr Waller is her doctor MD Complaint: Chest pain -: Hour(s) (3) Onset: During rest Pain Location: Substernal Severity: Mild Quality: Aching Consistency: Constant Improves With: Nothing Worsens With: Nothing Context: Other Anginal Symptoms: Dyspnea Treatments Prior to Arrival: None - Related Data Home Medications Medication Instructions Recorded Confirmed Last Taken Boniva-Unsure Of Dose/Frequenc 1 07/12/18 Unknown Carvedilol [Coreg] 6.25 mg PO BID 07/12/18 07/12/18 07/11/18 Previous Rx's Medication Instructions Recorded Albuterol Sulfate [Proair Hfa] 1 - 2 puff IH .EVERY 4-6 HOURS PRN 01/08/18 #1 inhaler Digoxin [Lanoxin] 125 mcg PO DAILY #30 tablet 01/13/18 Furosemide [Lasix] 20 mg PO DAILY #30 tablet 01/13/18 Lisinopril [Zestril] 2.5 mg PO DAILY #30 tablet 01/13/18 Allergies Allergy/AdvReac Type Severity Reaction Status Date / Time denosumab [From Prolia] Allergy SWELLING Verified 02/27/15 15:35 OF THE TONGUE Sulfa (Sulfonamide Allergy PT UNSURE Verified 02/27/15 15:35 Antibiotics) OF REACTION Review of Systems Constitutional: Denies: Chills, Fever, Malaise, Weakness Eyes: Denies: Eye discharge ENT: Denies: Congestion, Throat pain Respiratory: Reports: Dyspnea. Denies: Cough Cardiovascular: Reports: Chest pain, Palpitations. Denies: Edema, Syncope Endocrine: Reports: Fatigue Gastrointestinal: Denies: Abdominal pain, Diarrhea, Nausea, Vomiting Genitourinary: Denies: Dysuria Musculoskeletal: Denies: Arthralgia, Back pain, Myalgia Skin: Denies: Bruising, Change in color, Rash Neurological: Denies: Confusion, Headache Psychiatric: Denies: Anxiety Hematological/Lymphatic: Denies: Blood Clots, Easy bleeding, Easy bruising, Swollen glands Past Medical History - SOCIAL HISTORY Smoking Status: Never smoker - RESPIRATORY Hx Respiratory Disorders: No - CARDIOVASCULAR Hx Cardio Disorders: Yes Hx CHF: Yes (hx of when cardiomyopathy started) Hx Edema: Yes (hx of) Hx Hypertension: Yes (on meds good control) Comment:: cardiomyopathy dx'd 2003. stable now. works out 40 mins a day and walks nirmal - NEURO Hx Neuro Disorders: No - GI Hx GI Disorders: No - Hx Genitourinary Disorders: Yes Hx Bladder Problem: Yes (bladder pressure) - ENDOCRINE Hx Endocrine Disorders: No - MUSCULOSKELETAL Hx Musculoskeletal Disorders: Yes Hx Osteoporosis: Yes - PSYCH Hx Psych Problems: Yes Hx Anxiety: Yes - HEMATOLOGY/ONCOLOGY Hx Hematology/Oncology Disorders: No Physical Exam - General General Appearance: Alert, Oriented x3, Cooperative, No acute distress Limitations: No limitations - Head Head exam: Atraumatic, Normal inspection - Eye Eye exam: Normal appearance, PERRL. negative: Conjunctival injection, Scleral icterus - ENT ENT exam: Normal exam, Mucous membranes moist Ear exam: Normal external inspection Nasal Exam: Normal inspection Mouth exam: Normal external inspection - Neck Neck exam: Normal inspection - Respiratory Respiratory exam: Normal lung sounds bilaterally, Chest wall tenderness ( healing defibrillator site). negative: Rhonchi, Stridor, Wheezes - Cardiovascular Cardiovascular Exam: Regular rate, Normal rhythm, Normal heart sounds Peripheral Pulses: 2+: Radial (R), Radial (L) - GI/Abdominal GI/Abdominal exam: Soft. negative: Tenderness - Rectal Rectal exam: Deferred - exam: Deferred - Extremities Extremities exam: Normal inspection, Pedal edema (trace) - Back Back exam: Denies: CVA tenderness (R), CVA tenderness (L) - Neurological Neurological exam: Alert, Oriented X3 - Psychiatric Psychiatric exam: Normal affect, Normal mood. negative: Agitated, Anxious - Skin Skin exam: Dry, Intact, Normal color, Warm Course - Reevaluation(s) Reevaluation #1: Vitals reviewed No tachycardia, hypotension or hypoxia EKG 00:50 Sinus rhythm rate 82 with PVC, intervals MA 222, QRS 140, LBBB, L axis , ST consistent with BBB. No changes from 04/13/18. 07/12/18 00:58 07/12/18 01:13 EMR reviewed Extensive prior records with some summary in the HPI. Dr Waller is her pump assembler. Her recent difibrillator was placed at [facility] Physician for defibrillator place at [facility] was Angelitozaira 07/12/18 01:43 The CBC was reviewed. No acute abnormalities The CMP was reviewed. No acute abnormalities The BNP is 5439 The Troponin is 0.01 Digoxin is <0.3 Given her chest pain she will be admitted for serial enzymes, cardiology consultation with [facility]. The CXR was preliminarily read as no acute process by me. 07/12/18 01:45 Medical Decision Making - Lab Data Result diagrams: 07/12/18 01:14 07/12/18 01:14 Disposition Disposition: Admit Clinical Impression: Chest pain Qualifiers: Chest pain type: unspecified Qualified Code(s): R07.9 - Chest pain, unspecified CHF (congestive heart failure) Qualifiers: Heart failure type: unspecified Heart failure chronicity: unspecified Qualified Code(s): I50.9 - Heart failure, unspecified Disposition: Still a Patient at [facility] Decision to Admit: Admit from ER Decision to Admit Date: 07/12/18 Decision to Admit Time: 01:45 Condition: (2) Stable Time of Disposition: 01:45 Quality - Quality Measures Quality Measures: N/A - Blood Pressure Screening Does Patient Have Any of the Following: Active Dx of HTN Blood Pressure Classification: Pre-Hypertensive BP Reading Systolic Measurement: 124 Diastolic Measurement: 68 Screening for High Blood Pressure: Patient Exclusion, Hx of HTN [[id number]]
[2018-07-12 01:21] LABS: BASO % 0.3 % (0-6); EOS % 3.7 % (0-6); GRAN % 59.8 % (47-80); HEMATOCRIT 40.4 % (35.0-47.0); HEMOGLOBIN 13.1 gm/dl (11.6-16.0); MEAN CELL VOLUME 99.5 fl (81-97); MEAN CORPUSCULAR HEMOGLOBIN 32.3 pg (27-33); MEAN CORPUSCULAR HGB CONC 32.4 g/dl (32-36); MEAN PLATELET VOLUME 12.7 fl (7.4-10.4); MONO % 12.2 % (0-9); PLATELET COUNT 131 K/uL (130-400); RED BLOOD COUNT 4.06 M/uL (3.80-5.40); RED CELL DISTRIBUTION WIDTH 13.2 % (11.5-14.5); WHITE BLOOD COUNT W/O DIFF 6.5 K/uL (4.2-12.2)
[2018-07-12 01:31] LABS: BLOOD UREA NITROGEN 20 mg/dL (8-23); CREATININE 0.6 mg/dL (0.5-0.9); EST GLOMERULAR FILTRATION RATE > 60 mL/min; PARTIAL THROMBOPLASTIN TIME 26.1 SECONDS (24.5-39.1); PROTHROMBIN TIME (PATIENT) 10.2 SECONDS (9.5-12.1)
[2018-07-12 01:32] LABS: TOTAL PROTEIN 6.4 g/dL (6.6-8.7)
[2018-07-12 01:34] LABS: GLUCOSE,RANDOM 110 mg/dL (74-109)
[2018-07-12 01:37] LABS: ALB/GLOB RATIO 1.4 (1.1-1.8); ALBUMIN 3.7 g/dL (4.0-5.0); ALKALINE PHOSPHATASE 50 U/L (45-87); ALT/SGPT 19 U/L (<33); AST/SGOT 23 U/L (10.0-35.0)
[2018-07-12] MEDS ORDERED: ASPIRIN 81 MG CHEWABLE TABLET PO ONE (01:46)
--- NOTE | 2018-07-12 08:43 | RADIOLOGY REPORT ---
EXAM: CHEST, TWO VIEWS HISTORY: CHEST PAIN WITH SHORTNESS OF BREATH. DEFIBRILLATOR PLACEMENT ONE WEEK AGO. TECHNIQUE: Two views of the chest were obtained. Comparison: Chest radiograph 01/08/18. FINDINGS: The cardiac silhouette is enlarged and similar from prior study. There is an implanted left side single lead cardiac device. The pulmonary vasculature is not appreciably dilated. The thoracic aorta is calcified and tortuous. No new focal pulmonary opacities. No definable pleural fluid collection or visible pneumothorax. IMPRESSION: 1. STABLE CARDIAC SILHOUETTE ENLARGEMENT. 2. NO ACUTE LUNG FINDINGS. JOB NUMBER: [id number] [facility]
--- NOTE | 2018-07-12 09:33 | History & Physical ---
History of Present Illness - Date of Service Date of Service for History & Physical: 07/12/18 - History of Present Illness Admitting Diagnosis: chest pain, palpitations History of Present Illness: Mrs. Nielson is an 78 yo female who presented to the ED the evening on 07/11 with concern of chest pain. She has a history of CHF, cardiomyopathy with EF of 10-15%, LBBB, recent defibrillator placement on 07/01/[address] Dixon. This was an outpatient procedure. No complications with healing. ECHO on demonstrated EF <20%, dilated LV, severe L atrial enlargement. Prior to arrival to the ED, she noted at rest while watching TV a discomfort in the chest and a feeling of palpitations. No syncope. No cough. She does have some shortness of breath. The chest discomfort was the mid chest. She states it is nearly resolved. In the ED, vitals were stable, no tachycardia, hypotension or hypoxia. EKG demonstrated sinus rhythm rate 82 with PVC, intervals ND 222, QRS 140, LBBB, L axis, ST consistent with BBB. No changes from 04/13/18. CXR neg for acute process. CMP and CBC unremarkable, BNP 5439, Troponin 0.01, digoxin <0.3. She was admitted for serial enzymes, cardiology consult with [facility]. 07/12/18: Pt. is sitting up in her chair, she is accompanied by her daughter. She reports mild sternal pain that worsens with deep breaths. She is wearing a left sling as a reminder to not lift her left arm above heart level per vascular surgeon (L AICD placement on 07/01). NSR w/L BBB on , 2nd troponin still pending. Message left for [facility] Vascular surgery RN, Cass Love, regarding AICD activity recording during pt's episode last evening. ([phone]). Planning for cardiology PA to see pt today. PCP: Dr. Mccall Wire Harness Assembler: Dr. Alvaro Gordon Vascular surgeon: Dr. Dixon Travel Screening - Travel/Exposure Within Last 30 Days Have you traveled within the last 30 days?: No - Travel/Exposure Within Last Year Have you traveled outside the [place] in the last year?: No - Additonal Travel Details Have you been exposed to anyone with a communicable illness?: No - Travel Symptoms Symptom Screening: None Review of Systems Constitutional: Denies: Chills, Fever, Malaise, Weakness Eyes: Denies: Eye discharge ENT: Denies: Congestion, Throat pain Respiratory: Denies: Cough, Dyspnea Cardiovascular: Reports: Chest pain. Denies: Edema, Palpitations, Syncope Endocrine: Reports: Fatigue Gastrointestinal: Denies: Abdominal pain, Diarrhea, Nausea, Vomiting Genitourinary: Denies: Dysuria Musculoskeletal: Denies: Arthralgia, Back pain, Myalgia Skin: Denies: Bruising, Change in color, Rash Neurological: Denies: Confusion, Headache Psychiatric: Denies: Anxiety Hematological/Lymphatic: Denies: Blood Clots, Easy bleeding, Easy bruising, Swollen glands Past Medical History - SOCIAL HISTORY Smoking Status: Never smoker - RESPIRATORY Hx Respiratory Disorders: No - CARDIOVASCULAR Hx Cardio Disorders: Yes Hx CHF: Yes (hx of when cardiomyopathy started) Hx Edema: Yes (hx of) Hx Hypertension: Yes (on meds good control) Comment:: cardiomyopathy dx'd 2003. stable now. works out 40 mins a day and walks nirmal - NEURO Hx Neuro Disorders: No - GI Hx GI Disorders: No - Hx Genitourinary Disorders: Yes Hx Bladder Problem: Yes (bladder pressure) - ENDOCRINE Hx Endocrine Disorders: No - MUSCULOSKELETAL Hx Musculoskeletal Disorders: Yes Hx Osteoporosis: Yes - PSYCH Hx Psych Problems: Yes Hx Anxiety: Yes - HEMATOLOGY/ONCOLOGY Hx Hematology/Oncology Disorders: No Family Medical History Any Significant Family History?: Yes Hx Cancer: Mother Hx Heart Disease: Father H&P Meds/Allergies - Allergies Allergies: Allergies Allergy/AdvReac Type Severity Reaction Status Date / Time denosumab [From Prolia] Allergy SWELLING Verified 02/27/15 15:35 OF THE TONGUE Sulfa (Sulfonamide Allergy PT UNSURE Verified 02/27/15 15:35 Antibiotics) OF REACTION - Home Medications Home Medications Medication Instructions Recorded Confirmed Last Taken Boniva-Unsure Of Dose/Frequenc 1 07/12/18 Unknown Carvedilol [Coreg] 6.25 mg PO BID 07/12/18 07/12/18 07/11/18 Furosemide [Lasix] 20 mg PO Q48H 07/12/18 07/12/18 07/11/18 10:00 Previous Rx's Medication Instructions Recorded Albuterol Sulfate [Proair Hfa] 1 - 2 puff IH .EVERY 4-6 HOURS PRN 01/08/18 #1 inhaler Digoxin [Lanoxin] 125 mcg PO DAILY #30 tablet 01/13/18 Lisinopril [Zestril] 2.5 mg PO DAILY #30 tablet 01/13/18 - Active Medications Active Medications: Current Medications Aspirin (Ecotrin (Ec)) 81 mg PO 1200 [place] Carvedilol (Coreg) 6.25 mg PO BID [place] Digoxin (Lanoxin) 125 mcg PO DAILY [place] Furosemide (Lasix) 20 mg PO Q48H [place] Latanoprost (Xalatan) 1 drop OPTH QHS [place] Lisinopril (Zestril) 2.5 mg PO DAILY [place] Spironolactone (Aldactone) 12.5 mg PO 1800 [place] Physical Exam - Vital Signs Vital Signs: Vital Signs - Last 24 Hrs Temp Pulse Pulse Resp BP BP BP 07/12/18 02:40 97.9 F 90 16 104/48 07/12/18 01:59 92 H 16 118/65 07/12/18 00:54 88 124/68 07/12/18 00:49 85 20 124/68 Pulse Ox 07/12/18 02:40 96 07/12/18 01:59 94 L 07/12/18 00:54 100 07/12/18 00:49 99 - General General Appearance: Alert, Oriented x3, Cooperative, No acute distress Limitations: No limitations - Head Head exam: Atraumatic, Normal inspection - Eye Eye exam: Normal appearance, PERRL. negative: Conjunctival injection, Scleral icterus - ENT ENT exam: Normal exam, Mucous membranes moist Ear exam: Normal external inspection Nasal Exam: Normal inspection Mouth exam: Normal external inspection - Neck Neck exam: Normal inspection - Respiratory Respiratory exam: Normal lung sounds bilaterally, Chest wall tenderness ( healing defibrillator site). negative: Rhonchi, Stridor, Wheezes - Cardiovascular Cardiovascular Exam: Regular rate, Normal rhythm, Normal heart sounds Peripheral Pulses: 2+: Radial (R), Radial (L) - GI/Abdominal GI/Abdominal exam: Soft. negative: Tenderness - Rectal Rectal exam: Deferred - exam: Deferred - Extremities Extremities exam: Normal inspection, Pedal edema (trace) - Back Back exam: Denies: CVA tenderness (R), CVA tenderness (L) - Neurological Neurological exam: Alert, Oriented X3 - Psychiatric Psychiatric exam: Normal affect, Normal mood. negative: Agitated, Anxious - Skin Skin exam: Dry, Intact, Normal color, Warm Results - Labs Result Diagrams: 07/12/18 01:14 07/12/18 01:14 Labs Last 24 Hours: Laboratory Results - last 24 hr 07/12/18 07/12/18 07/12/18 01:14 01:14 01:14 WBC 6.5 RBC 4.06 Hgb 13.1 Hct 40.4 MCV 99.5 H MCH 32.3 MCHC 32.4 RDW 13.2 Plt Count 131 MPV 12.7 H Gran % 59.8 Lymphocytes % 24.0 Monocytes % 12.2 H Eosinophils % 3.7 Basophils % 0.3 PT 10.2 INR 1.0 APTT 26.1 Sodium 133 L Potassium 4.3 Chloride 95 L Carbon Dioxide 26.0 Anion Gap 12.0 BUN 20 Creatinine 0.6 Estimated GFR > 60 Random Glucose 110 H Calcium 9.4 Total Bilirubin 0.40 AST 23 ALT 19 Alkaline Phosphatase 50 Troponin T < 0.010 NT-Pro-B Natriuret Pep 5439.00 H Total Protein 6.4 L Albumin 3.7 L Globulin 2.7 Albumin/Globulin Ratio 1.4 Digoxin 07/12/18 01:14 WBC RBC Hgb Hct MCV MCH MCHC RDW Plt Count MPV Gran % Lymphocytes % Monocytes % Eosinophils % Basophils % PT INR APTT Sodium Potassium Chloride Carbon Dioxide Anion Gap BUN Creatinine Estimated GFR Random Glucose Calcium Total Bilirubin AST ALT Alkaline Phosphatase Troponin T NT-Pro-B Natriuret Pep Total Protein Albumin Globulin Albumin/Globulin Ratio Digoxin < 0.3 L - Imaging and Cardiology Chest x-ray Status: Report reviewed (No acute process) VTE H&P Assessment - Risk for VTE Risk for VTE: Yes Risk Level: Low Risk Assessment Date: 07/12/18 Risk Assessment Time: 09:35 VTE Orders Placed or Will Be Placed: No VTE Reason for No Prophylaxis: Contraindicated (On daily ASA, no anticoagulant at this time due to age/fall risk) Plan - Detailed Diagnosis and Plan (1) Chest pain Current Visit: Yes Status: Acute Qualifiers: Chest pain type: unspecified Qualified Code(s): R07.9 - Chest pain, unspecified Base Code: R07.9 - CHEST PAIN, UNSPECIFIED Comment: 07/12/18: -Episode of CP on 07/11, described as "palpitations/tingling", now mild sternal pain that occurs with deep breaths -EKG unchanged, initial troponin negative (2nd pending) -Called vascular surgery RN regarding AICD recording from last evening -Cardiology consult today (2) Hypertension Current Visit: Yes Status: Acute Base Code: I10 - ESSENTIAL (PRIMARY) HYPERTENSION Comment: 07/12/18: -Controlled -Continue home medications: coreg 6.25mg bid, lisinopril 2.5mg daily (3) At risk for deep venous thrombosis Current Visit: Yes Status: Acute Base Code: Z91.89 - OTH PERSONAL RISK FACTORS, NOT ELSEWHERE CLASSIFIED Comment: 07/12/18: -No anticoagulant added to treatment due to increased age/fall risk -Continue daily ASA 81mg -Nursing to encourage ambulation (4) Full code status Current Visit: No Status: Acute Base Code: Z78.9 - OTHER SPECIFIED HEALTH STATUS Comment: 07/12/18: -Pt. is a full code -DPOA is her daughter (Lita Vo)
[2018-07-12] MEDS ORDERED: LISINOPRIL 5 MG TABLET PO SCH (10:00)
[2018-07-12] MEDS ORDERED: CARVEDILOL 3.125 MG TABLET PO SCH (10:00)
[2018-07-12] MEDS ORDERED: DIGOXIN 125 MCG TABLET PO SCH (10:00)
[2018-07-12] MEDS ORDERED: ASPIRIN 81 MG TABEC PO SCH (12:00)
--- NOTE | 2018-07-12 17:43 | Discharge Summary ---
Providers Discharge Summary Date: 07/12/18 Date of admission: 07/12/18 02:21 Expected Date of Discharge: 07/12/18 Attending physician: GODWIN DIEGO Primary care physician: NAIF JETER D.O. Consults: Consult Orders 07/12/18 02:35 Consult - Cardiology NOW Consulting Provider: FLORENTINO WYLIE Physician Instructions: Reason For Exam: chest pain, palpitation Does pt have current gynecological assistant?: Heidi Physical Exam - Vital Signs Vital Signs: Vital Signs - Last 24 Hrs Temp Pulse Pulse Pulse Resp BP BP 07/12/18 13:30 97.8 F 83 18 07/12/18 08:00 95 H 18 07/12/18 02:40 97.9 F 90 16 07/12/18 01:59 92 H 16 07/12/18 00:54 88 124/68 07/12/18 00:49 85 20 124/68 BP Pulse Ox 07/12/18 13:30 102/51 96 07/12/18 08:00 112/56 97 07/12/18 02:40 104/48 96 07/12/18 01:59 118/65 94 L 07/12/18 00:54 100 07/12/18 00:49 99 - General General Appearance: Alert, Oriented x3, Cooperative, No acute distress Limitations: No limitations - Head Head exam: Atraumatic, Normal inspection - Eye Eye exam: Normal appearance, PERRL. negative: Conjunctival injection, Scleral icterus - ENT ENT exam: Normal exam, Mucous membranes moist Ear exam: Normal external inspection Nasal Exam: Normal inspection Mouth exam: Normal external inspection - Neck Neck exam: Normal inspection - Respiratory Respiratory exam: Normal lung sounds bilaterally, Chest wall tenderness ( healing defibrillator site). negative: Rhonchi, Stridor, Wheezes - Cardiovascular Cardiovascular Exam: Regular rate, Normal rhythm, Normal heart sounds Peripheral Pulses: 2+: Radial (R), Radial (L) - GI/Abdominal GI/Abdominal exam: Soft. negative: Tenderness - Rectal Rectal exam: Deferred - exam: Deferred - Extremities Extremities exam: Normal inspection, Pedal edema (trace) - Back Back exam: Denies: CVA tenderness (R), CVA tenderness (L) - Neurological Neurological exam: Alert, Oriented X3 - Psychiatric Psychiatric exam: Normal affect, Normal mood. negative: Agitated, Anxious - Skin Skin exam: Dry, Intact, Normal color, Warm Hospitalization - Hospitalization Admission Diagnosis: chest pain, palpitations - Problem List/Discharge Diagnosis (1) Chest pain Current Visit: Yes Status: Acute Discharge Diagnosis: Chest pain type: unspecified Qualified Code(s): R07.9 - Chest pain, unspecified Base Code: R07.9 - CHEST PAIN, UNSPECIFIED Comment: 07/12/18: -Episode of CP on 07/11, described as "palpitations/tingling", now mild sternal pain that occurs with deep breaths -EKG unchanged, serial troponins negative -Cardiology PA saw pt today, echo unchanged from previous, okay to f/u OP (2) Hypertension Current Visit: Yes Status: Acute Base Code: I10 - ESSENTIAL (PRIMARY) HYPERTENSION Comment: 07/12/18: -Controlled -Continue home medications: coreg 6.25mg bid, lisinopril 2.5mg daily (3) At risk for deep venous thrombosis Current Visit: Yes Status: Acute Base Code: Z91.89 - OTH PERSONAL RISK FACTORS, NOT ELSEWHERE CLASSIFIED Comment: 07/12/18: -No anticoagulant added to treatment due to increased age/fall risk -Continue daily ASA 81mg -Nursing to encourage ambulation (4) Full code status Current Visit: No Status: Acute Base Code: Z78.9 - OTHER SPECIFIED HEALTH STATUS Comment: 07/12/18: -Pt. is a full code -DPOA is her daughter (Lita Vo) - Hospitalization Course Disposition: Home, Self-Care Hospital Course: Mrs. Nielson is an 78 yo female who presented to the ED the evening on 07/11 with concern of chest pain. She has a history of CHF, cardiomyopathy with EF of 10-15%, LBBB, recent defibrillator placement on 07/01/[address] Dixon. This was an outpatient procedure. No complications with healing. ECHO on demonstrated EF <20%, dilated LV, severe L atrial enlargement. Prior to arrival to the ED, she noted at rest while watching TV a discomfort in the chest and a feeling of palpitations. No syncope. No cough. She does have some shortness of breath. The chest discomfort was the mid chest. She states it is nearly resolved. In the ED, vitals were stable, no tachycardia, hypotension or hypoxia. EKG demonstrated sinus rhythm rate 82 with PVC, intervals SC 222, QRS 140, LBBB, L axis, ST consistent with BBB. No changes from 04/13/18. CXR neg for acute process. CMP and CBC unremarkable, BNP 5439, Troponin 0.01, digoxin <0.3. She was admitted for serial enzymes, cardiology consult with MGL. 07/12/18 0900: Pt. is sitting up in her chair, she is accompanied by her daughter. She reports mild sternal pain that worsens with deep breaths. She is wearing a left sling as a reminder to not lift her left arm above heart level per vascular surgeon (L AICD placement on 07/01). NSR w/L BBB on , 2nd troponin still pending. Message left for Heidi Vascular surgery RN, Cass Love, regarding AICD activity recording during pt's episode last evening. ). Planning for cardiology PA to see pt today. 07/12/18 1700: Pt. was seen by cardiology PA, Rowena Wylie, echo was ordered to evaluate for poss fluid collection/endocarditis from defib placement causing sterna pain. Echo was unchanged from previous, serial troponins negative, will d/c home. Pt to f/u with vascular surgery in 2 weeks. PCP: Dr. Jeter Saddle Maker: Dr. Alvaro Gordon Vascular surgeon: Dr. Dixon Procedures: Imaging and X-Rays 07/12/18 00:53 CHEST 2 VIEWS [RAD] Stat Cardiology Procedures 07/12/18 00:53 Endodontics Dentist .Continuous 07/12/18 01:00 EKG NOW 07/12/18 02:35 Endodontics Dentist .Continuous 07/12/18 12:28 Echocardiogram 2D - Limited NOW Abnormal Labs: Abnormal Lab Results 07/12/18 07/12/18 07/12/18 Range/Units :14 01:14 01:14 MCV 99.5 H (81-97) fl MPV 12.7 H (7.4-10.4) fl Monocytes % 12.2 H (0-9) % Sodium 133 L (136-145) mmol/L Chloride 95 L (98-107) mmol/L Random Glucose 110 H (74-109) mg/dL NT-Pro-B Natriuret Pep 5439.00 H (<450) pg/mL Total Protein 6.4 L (6.6-8.7) g/dL Albumin 3.7 L (4.0-5.0) g/dL Digoxin < 0.3 L (0.8-2.0) ng/mL Condition at Discharge: (2) Stable Discharge Diagnosis: Chest pain Discharge Medications - Discharge Medications Home Medications: Ambulatory Orders Aspirin [Ecotrin] 81 mg PO 1200 11/19/16 [Last Taken 07/11/18] Calcium Carbonate/Vitamin D3 [Calcium 500-Vit D3 400 Tablet] 1 each PO BID 11/19 [Last Taken 07/11/18] Cholecalciferol (Vitamin D3) [Vitamin D3] 1,000 unit PO DAILY 11/19/16 [Last Taken 07/11/18] Latanoprost 0.005% Opth Liliam [Xalatan] 1 drop OP QHS 11/19/16 [Last Taken ] Oxybutynin Chloride [Oxybutynin Chloride ER] 15 mg PO DAILY 11/19/16 [Last Taken 07/11/18] Spironolactone 12.5 mg PO DAILY 11/19/16 [Last Taken 07/11/18] Albuterol Sulfate [Proair Hfa] 1 - 2 puff IH .EVERY 4-6 HOURS PRN #1 inhaler [Last Taken 07/11/18] Digoxin [Lanoxin] 125 mcg PO DAILY #30 tablet 01/13/18 [Last Taken 07/11/18] Lisinopril [Zestril] 2.5 mg PO DAILY #30 tablet 01/13/18 [Last Taken 07/11/18] Boniva-Unsure Of Dose/Frequenc 1 07/12/18 [Last Taken Unknown] Carvedilol [Coreg] 6.25 mg PO BID 07/12/18 [Last Taken 07/11/18] Furosemide [Lasix] 20 mg PO Q48H 07/12/18 [Last Taken 07/11/18 10:00] Discharge Plan - Discharge Instructions Activity at Discharge: Increase Activity as Tolerated Diet at Discharge: Regular Diet Additional Instructions: Follow up with your PCP within 7 days Follow up with your vascular surgeon in 2 weeks Return to the ED if symptoms worsen, or if you experience chest pain/pressure and/or shortness of breath Quality Measures - Quality Measures Quality Measures: Advance Directives, Documentation of Current Medications in Medical Record, Elder Maltreatment Screen and Follow-Up Plan, Heart Failure, Screening for High Blood Pressure and F/U Documented - Current Medications Quality Measure: Measure #130: Documentation of Current Medications Documentation of Current Medications: <Current Medications Documented/Reviewed> [D6365] - Blood Pressure Screening Quality Measure: Screening for High Blood Pressure and Follow-Up Documented Does Patient Have Any of the Following: Active Dx of HTN Blood Pressure Classification: Pre-Hypertensive BP Reading Systolic Measurement: 124 Diastolic Measurement: 68 Screening for High Blood Pressure: Patient Exclusion, Hx of HTN [G9744] - Heart Failure (MARIBEL/ARB Therapy) Quality Measure: Heart Failure Left Ventricular Systolic Function: LV Ejection Fraction less than 40% [3021F] MARIBEL Inhibitor or ARB Therapy for LVSD: <MARIBEL Inhibitor or ARB therapy prescribed or currently taken> [4010F] - Heart Failure (Beta-dm Therapy) Quality Measure: Heart Failure Left Ventricular Systolic Function: LV Ejection Fraction less than 40% [3021F] Beta-Dm Therapy for LVEF < 40%: <Beta-Dm Therapy Prescribed> [A1650] - Advance Directives Quality Measure: Measure #47: Care Plan Advance Directives Established: No Advance Directives Information Provided To Patient: No Advance Directives on File: No Living Will: Yes Power of Shampoo Assistant: Yes Power of Shampoo Assistant Name: Lita Hernandes Advance Care Planning: <Care Plan/Decision Maker Documented; Discussed & Documented> [1123F] - Elder Abuse Suspicion Index Screening: Elder Abuse Suspicion Index Screening Rely on people for bathing, dressing, shopping, banking, etc: No Prevented from getting food, clothes, medication, etc: No Made to feel shamed or threatened by someone: No Forced to sign papers or use money against will: No Feel afraid, touched in ways not wanted or hurt physically: No Poor eye contact, withdrawn, malnourished, cuts or bruises: No Screening Result: Negative result EASI Reference Information: Soila MARTINEZ, Kelton Talamantes, Irvin Ibarra, Elmer Yee.Development and validation of a tool to assist physicians identification of elder abuse: The Elder Abuse Suspicion Index (EASI ). Journal of Elder Abuse and Neglect, 2008; 20 (3): 276-300. - Elder Maltreatment Screen Quality Measures: Elder Maltreatment Screen and Follow-Up Plan Elder Maltreatment Screen: <Negative, No Follow-Up Plan Required> [G8734]
[2018-07-12] MEDS ORDERED: SPIRONOLACTONE 25 MG TAB PO SCH (18:00)
--- NOTE | 2018-07-12 20:11 | Cardiology Consult ---
DATE OF CONSULTATION: 07/12/2018 CHIEF COMPLAINT: CHEST PAIN. HISTORY OF PRESENT ILLNESS: Ms. Nielson is a very pleasant 78-year-old female with past medical history of nonischemic cardiomyopathy with an ejection fraction of 10 to 15%. Echocardiogram in November, demonstrated an EF of 10 to 15%. She subsequently underwent left heart catheterization on 05/03/18, which demonstrated no obstructive coronary artery disease and an EF of 25%. She then underwent ICD implantation for primary prophylaxis on 07/02/[address] Dixon. She presented to [facility] today with complaints of chest pain. She states that the pain is sharp and worse with deep inspiration. She denies any significant shortness of breath. She denies any lightheadedness, dizziness, or syncope. Denies any peripheral edema, PND, or orthopnea. Her blood pressure is well-controlled at 118/65 mmHg. Her EKG demonstrates normal sinus rhythm with PVCs and first-degree AV block but no acute ST or T-wave changes. Her chest x-ray does not suggest any acute pathology including pulmonary edema, pleural effusions, or pneumothorax. Her troponin has been negative x3. Her proBNP was elevated at 5000. She denies any significant pain of her ICD site but does report extensive bruising. She denies any cough or flu- like symptoms. ALLERGIES: DENOSUMAB FROM PROLIA CAUSES TONGUE SWELLING. SULFA. MEDICATIONS: Lasix Xalatan Aspirin 81 mg daily Spironolactone Oxybutynin Chloride ER Zestril Lanoxin Vitamin D3 Coreg Calcium 500/Vitamin D3 400 tablet ProAir HFA Boniva REVIEW OF SYSTEMS: CONSTITUTIONAL: No fevers, chills, sweats, lightheadedness, dizziness, or syncope. EYE: No recent visual problems. ENMT: No ear pain, nasal congestion, sore throat. RESPIRATORY: No shortness of breath, cough. CARDIOVASCULAR: Complains of chest pain. No shortness of breath, palpitations, PND, orthopnea, syncope. PERIPHERAL VASCULAR: No peripheral edema, claudication. GASTROINTESTINAL: No nausea, vomiting, diarrhea. MUSCULOSKELETAL: No back pain, neck pain, joint pain, muscle pain, decreased range of motion. INTEGUMENTARY: Left chest wall bruising into left lateral thorax. ICD site bandaged with Steri-Strips. NEUROLOGIC: Alert and oriented x4. PSYCHIATRIC: No anxiety, depression. PHYSICAL EXAM: VITAL SIGNS: Heart rate 92 beats per minute. Blood pressure 118/65 mmHg. SPO2 96 %. Respiratory rate 16. Temperature 97.9. GENERAL: Alert and oriented, well nourished, in no acute distress. HEAD: Normocephalic, atraumatic. ENT: EOMI, PERRL. No scleral icterus, erythema. Throat free from erythema, lesions. NECK: Supple, nontender, no carotid bruits, no JVD. RESPIRATORY: Clear to auscultation, nonlabored respiration. No wheezing, rhonchi , rales. CARDIAC: Regular rate and rhythm with occasional premature beat. No murmurs, rubs, or gallops. PERIPHERAL VASCULAR: No peripheral edema. No cyanosis, clubbing, edema. Peripheral pulses 2+ and symmetric. ABDOMEN: Soft, nontender, nondistended, normal bowel sounds. SKIN: ICD incision site is free from erythema, discharge, drainage, and swelling. She does have extensive bruising of the left lateral chest wall. MUSCULOSKELETAL: Normal range of motion of all four extremities. Normal gait. NEUROLOGIC: Awake, alert, and oriented x3. PSYCHIATRIC: Cooperative, appropriate mood and affect. IMAGING: Chest X-ray: No acute pathology. EKG: Sinus rhythm with occasional PVCs and first-degree AV block. LABS: CBC: Hemoglobin is 13.1. Hematocrit 40.4. WBC 6.5. Platelets 131. BMP: Sodium 133. Potassium 4.3. Chloride 26. CO2 12. BUN 20. Creatinine 0.6. Glucose 110. Troponin negative x2. proBNP 5,000. ASSESSMENT AND PLAN: 1. CHEST PAIN: The patient is an 78-year-old female with past medical history of nonischemic cardiomyopathy with ejection fraction of 10 to 15%. She is status post ICD implantation on 07/02/[address] Dixon. She presents today with complaints of chest pain. The chest pain is mid sternal and sharp and is worse with deep inspiration. It is not aggravated with leaning forward or laying on her side. It is not aggravated with activity. Her blood pressure has been stable at 118/65 mmHg. She is afebrile. Her ICD incision site looks good with no erythema, swelling, discharge/drainage. She does have extensive bruising of her left chest wall into her lateral chest wall. She has moderate tenderness to palpation of the ICD incision site. Chest x-ray was negative for pulmonary edema and pleural effusions as well as pneumothorax. Her EKG has no acute ST or T-wave changes. Her troponin has been negative x3. Her left heart catheterization on 05/03/18 did not suggest any significant obstructive coronary artery disease. Limited echo performed at bedside today suggests reduced LV systolic function similar to before and no pericardial effusion. At this time, no further cardiac testing is needed. The chest pain is noncardiac in nature. She will need to call for a follow-up appointment with Dr. Dixon for an incision and ICD check in the next week. She can be discharged from a cardiac standpoint. JOB NUMBER: [id number] MTDD
[2018-07-12] MEDS ORDERED: LATANOPROST 0.005% OPTH SOLUTION 2.5ML BOTTLE OPTH SCH (22:00)
[2018-07-13] MEDS ORDERED: FUROSEMIDE 20 MG TABLET PO SCH (10:00)
== END 2018-07-12 17:55 | disposition home or self-care (01) ==
LOC: ER 00:45 → MEDSURG 02:20
PROVIDERS: ADMIT Internal Medicine; ATTEND Internal Medicine
DX: I50.9 Heart failure, unspecified (principal); R00.2 Palpitations; I42.9 Cardiomyopathy, unspecified; I10 Essential (primary) hypertension; M81.0 Age-related osteoporosis without current pathological fracture; Z95.810 Presence of automatic (implantable) cardiac defibrillator
CPT/HCPCS: 85025; 85730; 85610; 80053; 84484; 80162; 83880; 71046; 93005; 93010; 93307; G0378; 99223; 99285

== ENCOUNTER 2018-07-27 06:27 | Observation (INO) | payer MEDICARE, BC ==
--- NOTE | 2018-07-27 06:32 | Emergency Department Record ---
History of Present Illness - General Chief Complaint: Chest Pain Stated Complaint: CHEST PAIN Time Seen by Provider: 07/27/18 06:28 Source: Patient, EMS Mode of Arrival: EMS Limitations: No limitations - History of Present Illness Initial Comments: 78 yo female presents to ED for evaluation of chest pain symptoms originating in the left anterior chest and radiating to her back. Patient initially believed her symptoms were related to osteoporosis, tried heat and positioning without improvement. patient describes her pain as sharp in nature, denies calf swelling or pain. Patient denies history of DVT. Patient denies fever, chills, or cough symptoms. Patient got up and walked around her home resulting in worsening of her pain symptoms radiating to the LUE. Patient did take ASA and Nitro x 2 with mild improvement in her symptoms. MD Complaint: Chest pain Onset/Timin -: Hour(s) Onset: Awoke with symptoms Pain Location: Left chest Pain Radiation: LUE, Back Severity: Moderate Quality: Aching Consistency: Constant Improves With: Nothing Worsens With: Exertion Treatments Prior to Arrival: Aspirin, Nitroglycerin - Related Data On Oral Contraceptives: No Previous Rx's Medication Instructions Recorded Albuterol Sulfate [Proair Hfa] 1 - 2 puff IH .EVERY 4-6 HOURS PRN 01/08/18 #1 inhaler Digoxin [Lanoxin] 125 mcg PO DAILY #30 tablet 01/13/18 Lisinopril [Zestril] 2.5 mg PO DAILY #30 tablet 01/13/18 Allergies Allergy/AdvReac Type Severity Reaction Status Date / Time denosumab [From Prolia] Allergy SWELLING Verified 02/27/15 15:35 OF THE TONGUE Sulfa (Sulfonamide Allergy PT UNSURE Verified 02/27/15 15:35 Antibiotics) OF REACTION Review of Systems Constitutional: Denies: Chills, Fever, Malaise, Night sweats Eyes: Denies: Eye discharge, Eye pain ENT: Denies: Congestion, Ear pain, Epistaxis Respiratory: Denies: Cough, Dyspnea Cardiovascular: Reports: Chest pain. Denies: Dyspnea on exertion, Edema Endocrine: Denies: Fatigue, Heat or cold intolerance Gastrointestinal: Denies: Abdominal pain, Nausea, Vomiting Genitourinary: Denies: Incontinence, Retention Musculoskeletal: Reports: Back pain. Denies: Arthralgia, Gout, Joint swelling Skin: Denies: Bruising, Change in color Neurological: Denies: Abnormal gait, Confusion, Headache, Seizure Psychiatric: Denies: Anxiety Hematological/Lymphatic: Denies: Anemia, Blood Clots Past Medical History - SOCIAL HISTORY Smoking Status: Never smoker - RESPIRATORY Hx Respiratory Disorders: No - CARDIOVASCULAR Hx Cardio Disorders: Yes Hx CHF: Yes (hx of when cardiomyopathy started) Hx Edema: Yes (hx of) Hx Hypertension: Yes (on meds good control) Comment:: cardiomyopathy dx'd 2003. stable now. works out 40 mins a day and walks nirmal - NEURO Hx Neuro Disorders: No - GI Hx GI Disorders: No - Hx Genitourinary Disorders: Yes Hx Bladder Problem: Yes (bladder pressure) - ENDOCRINE Hx Endocrine Disorders: No - MUSCULOSKELETAL Hx Musculoskeletal Disorders: Yes Hx Osteoporosis: Yes - PSYCH Hx Psych Problems: Yes Hx Anxiety: Yes - HEMATOLOGY/ONCOLOGY Hx Hematology/Oncology Disorders: No Family Medical History Hx Cancer: Mother Hx Heart Disease: Father Physical Exam - General General Appearance: Alert, Oriented x3, Cooperative, Mild distress, Other ( Cachectic appearing, flat affect.) Limitations: No limitations - Head Head exam: Atraumatic, Normocephalic, Normal inspection Head exam detail: negative: Abrasion, Contusion, Edwards's sign, General tenderness, Hematoma, Laceration - Eye Eye exam: Normal appearance. negative: Conjunctival injection, Periorbital swelling, Periorbital tenderness, Scleral icterus - ENT Ear exam: negative: Auricular hematoma, Auricular trauma Nasal Exam: negative: Active bleeding, Discharge, Dried blood, Foreign body Mouth exam: negative: Drooling, Laceration, Muffled voice, Tongue elevation - Neck Neck exam: Normal inspection. negative: Meningismus, Tenderness - Respiratory Respiratory exam: Normal lung sounds bilaterally, Chest wall tenderness (Post- operative changes/bruising fo the left chest wall c/w recent ICD placement). negative: Rales, Respiratory distress, Rhonchi, Stridor - Cardiovascular Cardiovascular Exam: Regular rate, Normal rhythm, Normal heart sounds - GI/Abdominal GI/Abdominal exam: Soft. negative: Rebound, Rigid, Tenderness - Rectal Rectal exam: Deferred - exam: Deferred - Extremities Extremities exam: Normal inspection. negative: Pedal edema, Tenderness - Back Back exam: Denies: CVA tenderness (R), CVA tenderness (L) - Neurological Neurological exam: Alert, Normal gait, Oriented X3 - Psychiatric Psychiatric exam: Normal affect, Normal mood - Skin Skin exam: Normal color. negative: Abrasion Type of lesion: negative: abrasion Course - Reevaluation(s) Reevaluation #1: 07/27/18 06:41 EKG: NSR 82 LBBB, no Sgarbossa criteria present on examination Similar overall appearance to 07/12/18 Review of recent records and hospitalization for chest pain 07/12/18 reveals the following history: Recent ICD placement by Dr. Fuller 07/02/18 Cardiac cath 05/03/18, no obstructive lesions identified EF 10-15% Reevaluation #2: 07/27/18 06:59 Laboratory studies were reviewed, Digoxin level is mildly sub-therapeutic, and are grossly unremarkable for an acute process. CXR: No acute process Post-operative changes Nothing acute Case was discussed with Rowena Victoria NP, will accept admission at this time. Medical Decision Making - Lab Data Result diagrams: 07/27/18 06:40 07/27/18 06:40 Disposition Disposition: Admit Clinical Impression: Chest pain Qualifiers: Chest pain type: unspecified Qualified Code(s): R07.9 - Chest pain, unspecified Cardiomyopathy Qualifiers: Cardiomyopathy type: unspecified Qualified Code(s): I42.9 - Cardiomyopathy, unspecified Disposition: Still a Patient at [facility] Decision to Admit: Admit from ER Decision to Admit Date: 07/27/18 Decision to Admit Time: 07:13 Condition: (2) Stable Forms: Patient Portal Access Time of Disposition: 07:13 Quality - Quality Measures Quality Measures: N/A - Blood Pressure Screening Does Patient Have Any of the Following: No Blood Pressure Classification: Normal BP Reading Systolic Measurement: 116 Diastolic Measurement: 67 Screening for High Blood Pressure: < Normal BP, F/U Not Required > [G8783]
[2018-07-27] MEDS ORDERED: ASPIRIN 81 MG CHEWABLE TABLET PO ONE (06:39)
[2018-07-27 06:47] LABS: BASO % 0.4 % (0-6); GRAN % 68.7 % (47-80); HEMATOCRIT 39.9 % (35.0-47.0); HEMOGLOBIN 13.2 gm/dl (11.6-16.0); LYMPH % 17.9 % (16-45); MEAN CORPUSCULAR HEMOGLOBIN 32.8 pg (27-33); MEAN CORPUSCULAR HGB CONC 33.1 g/dl (32-36); MEAN PLATELET VOLUME 12.8 fl (7.4-10.4); PLATELET COUNT 113 K/uL (130-400); RED BLOOD COUNT 4.03 M/uL (3.80-5.40); RED CELL DISTRIBUTION WIDTH 13.3 % (11.5-14.5)
[2018-07-27 06:49] LABS: BLOOD UREA NITROGEN 16 mg/dL (8-23); CREATININE 0.6 mg/dL (0.5-0.9); EST GLOMERULAR FILTRATION RATE > 60 mL/min
[2018-07-27 06:50] LABS: TOTAL PROTEIN 6.9 g/dL (6.6-8.7)
[2018-07-27 06:52] LABS: GLUCOSE,RANDOM 119 mg/dL (74-109)
[2018-07-27 06:53] LABS: ALT/SGPT 22 U/L (<33)
[2018-07-27 06:54] LABS: ALB/GLOB RATIO 1.5 (1.1-1.8); ALBUMIN 4.1 g/dL (4.0-5.0); AST/SGOT 32 U/L (10.0-35.0)
[2018-07-27 06:55] LABS: ALKALINE PHOSPHATASE 45 U/L (45-87)
[2018-07-27 07:07] LABS: DIGOXIN 0.4 ng/mL (0.8-2.0)
[2018-07-27] MEDS ORDERED: 0.9 % SODIUM CHLORIDE 1000ML 1,000 ML IV PRN (08:03)
[2018-07-27] MEDS ORDERED: ALBUTEROL HFA 8 GM INHALER INH PRN (08:03)
[2018-07-27] MEDS ORDERED: NITROGLYCERIN 0.4MG SL TABLET #25 BTL SL PRN (08:03)
[2018-07-27] MEDS ORDERED: DIGOXIN 125 MCG TABLET PO SCH (10:00)
[2018-07-27] MEDS ORDERED: CARVEDILOL 3.125 MG TABLET PO SCH (10:00)
[2018-07-27] MEDS ORDERED: SPIRONOLACTONE 25 MG TAB PO SCH (10:00)
[2018-07-27] MEDS ORDERED: LISINOPRIL 5 MG TABLET PO SCH (10:00)
[2018-07-27] MEDS ORDERED: OXYBUTYNIN CHLORIDE 15 MG PO SCH (10:00)
--- NOTE | 2018-07-27 11:06 | History & Physical ---
History of Present Illness - Date of Service Date of Service for History & Physical: 07/27/18 - History of Present Illness Admitting Diagnosis: Chest pain. Cardiomyopathy History of Present Illness: 78 year old female patient presents to ED for symptoms of chest pain. 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 Patient states she initially treated the pain with acetaminophen and a heating pad, which did not provide any relief of symptoms. Patient stated she had attempted to shovel snow yesterday and found herself to tire easily and was unable to catch her breath. Patient did report taking 324mg ASA and 2 SL Nitro prior to the ED with mild improvement in symptoms. Denies fever, chills, abdominal pain, nausea , vomiting, or diarrhea. Past medical history includes osteoporosis, CHF, cardiomyopathy with most recent EF 10-15%, ICD placed Jul 02, 2018 (Dr. Fuller). Recent cardiac cath with no obstructive lesions identified. PCP: Dr. Mccall ED Course: EKG: LBBB with no change from 07/12/18, rate 82 Digoxin level sub-therapeutic Trop negative Chest x-ray: no acute process, post-op changes 07/27/18: Patient A&O x 4, resting comfortably in bed. Patient is poor historian and provides vague symptoms of current concerns. Patient reports ongoing chest pressure, shortness of breath, and difficulty taking a deep breath. CTA chest and cardiology consult pending. Travel Screening - Travel/Exposure Within Last 30 Days Have you traveled within the last 30 days?: No - Travel/Exposure Within Last Year Have you traveled outside the [place] in the last year?: No - Additonal Travel Details Have you been exposed to anyone with a communicable illness?: No - Travel Symptoms Symptom Screening: None Review of Systems Reviewed: No additional complaints except as noted below Constitutional: Denies: Chills, Fever, Malaise, Night sweats Eyes: Denies: Eye discharge, Eye pain ENT: Denies: Congestion, Ear pain, Epistaxis Respiratory: Reports: Other (shortness of breath). Denies: Cough, Dyspnea Cardiovascular: Reports: Chest pain. Denies: Dyspnea on exertion, Edema Endocrine: Denies: Fatigue, Heat or cold intolerance Gastrointestinal: Denies: Abdominal pain, Nausea, Vomiting Genitourinary: Denies: Incontinence, Retention Musculoskeletal: Reports: Back pain. Denies: Arthralgia, Gout, Joint swelling Skin: Denies: Bruising, Change in color Neurological: Denies: Abnormal gait, Confusion, Headache, Seizure Psychiatric: Denies: Anxiety Hematological/Lymphatic: Denies: Anemia, Blood Clots Past Medical History - SOCIAL HISTORY Smoking Status: Never smoker Alcohol Use: None Drug Use: None - RESPIRATORY Hx Respiratory Disorders: No - CARDIOVASCULAR Hx Cardio Disorders: Yes Hx CHF: Yes (hx of when cardiomyopathy started) Hx Edema: Yes (hx of) Hx Hypertension: Yes (on meds good control) Comment:: cardiomyopathy dx'd 2003. stable now. works out 40 mins a day and walks nirmal - NEURO Hx Neuro Disorders: No - GI Hx GI Disorders: No - Hx Genitourinary Disorders: Yes Hx Bladder Problem: Yes (bladder pressure) - ENDOCRINE Hx Endocrine Disorders: No - MUSCULOSKELETAL Hx Musculoskeletal Disorders: Yes Hx Osteoporosis: Yes - PSYCH Hx Psych Problems: Yes Hx Anxiety: Yes - HEMATOLOGY/ONCOLOGY Hx Hematology/Oncology Disorders: No Family Medical History Any Significant Family History?: Yes Hx Cancer: Mother Hx Heart Disease: Father H&P Meds/Allergies - Allergies Allergies: Allergies Allergy/AdvReac Type Severity Reaction Status Date / Time denosumab [From Prolia] Allergy SWELLING Verified 02/27/15 15:35 OF THE TONGUE Sulfa (Sulfonamide Allergy PT UNSURE Verified 02/27/15 15:35 Antibiotics) OF REACTION - Home Medications Previous Rx's Medication Instructions Recorded Albuterol Sulfate [Proair Hfa] 1 - 2 puff IH .EVERY 4-6 HOURS PRN 01/08/18 #1 inhaler Digoxin [Lanoxin] 125 mcg PO DAILY #30 tablet 01/13/18 Lisinopril [Zestril] 2.5 mg PO DAILY #30 tablet 01/13/18 - Active Medications Active Medications: Current Medications Albuterol Sulfate (Ventolin Hfa) 2 puff INH Q4H PRN PRN Reason: DIFFICULTY IN BREATHING Aspirin (Ecotrin (Ec)) 81 mg PO 1200 [place] Carvedilol (Coreg) 6.25 mg PO BID [facility] Last Admin: 07/27/18 09:31 Dose: 6.25 mg Digoxin (Lanoxin) 125 mcg PO DAILY [facility] Last Admin: 07/27/18 09:30 Dose: 125 mcg Furosemide (Lasix) 20 mg PO Q48H [facility] Sodium Chloride () 1,000 mls @ 15 mls/hr IV .Q24H PRN PRN Reason: LARGE VOLUME IV Latanoprost (Xalatan) 1 drop OPTH QHS [facility] Lisinopril (Zestril) 2.5 mg PO DAILY [facility] Last Admin: 07/27/18 09:28 Dose: 2.5 mg Nitroglycerin (Nitrostat 0.4mg) 0.4 mg SL Q5MIN PRN PRN Reason: CHEST PAIN Spironolactone (Aldactone) 25 mg PO DAILY [facility] Last Admin: 07/27/18 09:32 Dose: 25 mg Physical Exam - Vital Signs Vital Signs: Vital Signs - Last 24 Hrs Temp Pulse Pulse Pulse Resp BP BP 07/27/18 09:44 91 H 16 07/27/18 08:03 97.7 F 79 18 105/63 07/27/18 07:13 72 24 111/61 07/27/18 06:28 82 16 116/67 Pulse Ox 07/27/18 09:44 92 L 07/27/18 08:03 98 07/27/18 07:13 98 07/27/18 06:28 97 - General General Appearance: Alert, Oriented x3, Cooperative, No acute distress, Other ( Cachectic appearing, flat affect.) Limitations: No limitations - Head Head exam: Atraumatic, Normocephalic, Normal inspection Head exam detail: negative: Abrasion, Contusion, Edwards's sign, General tenderness, Hematoma, Laceration - Eye Eye exam: Normal appearance. negative: Conjunctival injection, Periorbital swelling, Periorbital tenderness, Scleral icterus - ENT ENT exam: Mucous membranes moist Ear exam: Normal external inspection. negative: Auricular hematoma, Auricular trauma Nasal Exam: negative: Active bleeding, Discharge, Dried blood, Foreign body Mouth exam: Normal external inspection. negative: Drooling, Laceration, Muffled voice, Tongue elevation - Neck Neck exam: Normal inspection. negative: Meningismus, Tenderness - Respiratory Respiratory exam: Normal lung sounds bilaterally, Chest wall tenderness (Post- operative changes/bruising fo the left chest wall c/w recent ICD placement). negative: Rales, Respiratory distress, Rhonchi, Stridor - Cardiovascular Cardiovascular Exam: Regular rate, Normal rhythm, Normal heart sounds Peripheral Pulses: 2+: Radial (R), Radial (L), Dorsalis Pedis (R), Dorsalis Pedis (L) - GI/Abdominal GI/Abdominal exam: Soft. negative: Rebound, Rigid, Tenderness - Rectal Rectal exam: Deferred - exam: Deferred - Extremities Extremities exam: Normal inspection. negative: Pedal edema, Tenderness - Back Back exam: Denies: CVA tenderness (R), CVA tenderness (L) - Neurological Neurological exam: Alert, Oriented X3 - Psychiatric Psychiatric exam: Flat affect, Normal mood - Skin Skin exam: Normal color. negative: Abrasion Type of lesion: negative: abrasion Results - Labs Result Diagrams: 07/27/18 06:40 07/27/18 06:40 Labs Last 24 Hours: Laboratory Results - last 24 hr 07/27/18 07/27/18 07/27/18 06:40 06:40 06:40 WBC 7.0 RBC 4.03 Hgb 13.2 Hct 39.9 MCV 99.0 H MCH 32.8 MCHC 33.1 RDW 13.3 Plt Count 113 L MPV 12.8 H Gran % 68.7 Lymphocytes % 17.9 Monocytes % 10.0 H Eosinophils % 3.0 Basophils % 0.4 Sodium 134 L Potassium 4.8 H Chloride 96 L Carbon Dioxide 28.0 Anion Gap 10.0 BUN 16 Creatinine 0.6 Estimated GFR > 60 Random Glucose 119 H Calcium 9.6 Total Bilirubin 0.70 AST 32 ALT 22 Alkaline Phosphatase 45 Troponin T < 0.010 Total Protein 6.9 Albumin 4.1 Globulin 2.8 Albumin/Globulin Ratio 1.5 Digoxin 0.4 L Cancelled VTE H&P Assessment - Risk for VTE Risk for VTE: Yes Risk Level: Moderate Risk Assessment Date: 07/27/18 Risk Assessment Time: 11:18 VTE Orders Placed or Will Be Placed: No VTE Reason for No Prophylaxis: Contraindicated (age, fall risk, high-risk for bleeding) Plan - Detailed Diagnosis and Plan (1) Chest pain Current Visit: Yes Status: Acute Qualifiers: Chest pain type: unspecified Qualified Code(s): R07.9 - Chest pain, unspecified Base Code: R07.9 - CHEST PAIN, UNSPECIFIED Comment: 07/27/18: - Episode of CP on 07/27, described as chest pressure and inability to take a deep breath, now mild sternal pain that occurs with deep breaths - Recent admission 07/12/18 for similar symptoms - EKG unchanged: LBBB - Initial troponin negative, serial troponins negative - surveillance system monitor - ECHO 07/12/18: reduced LV systolic function similar to before, EF 10-15% - Cardiology consult pending (2) Shortness of breath Current Visit: Yes Status: Acute Base Code: R06.02 - SHORTNESS OF BREATH Comment: 07/27/18: Patient has vague symptoms of shortness of breath at rest and inability to take a deep breath - D-dimer elevated 0.92 - CTA chest pending (3) CHF (congestive heart failure) Current Visit: No Status: Chronic Qualifiers: Heart failure type: unspecified Heart failure chronicity: unspecified Qualified Code(s): I50.9 - Heart failure, unspecified Base Code: I50.9 - HEART FAILURE, UNSPECIFIED Comment: 07/27/18: - hx of CHF - ECHO 07/12/18: reduced LV systolic function similar to before, EF 10-15% - BNP 6398, previously 5439 on 07/12/18 - EKG: LBBB, unchanged from 07/12/18 - Continue Aldactone 12.5md daily, Coreg 3.125mg BID, ASA 81mg, Lasix - Cardiology consult pending (4) At risk for deep venous thrombosis Current Visit: No Status: Acute Base Code: Z91.89 - OTH PERSONAL RISK FACTORS, NOT ELSEWHERE CLASSIFIED Comment: 07/27/18: -No anticoagulant added to treatment due to increased age/fall risk -Continue daily ASA 81mg -Nursing to encourage ambulation (5) Full code status Current Visit: No Status: Acute Base Code: Z78.9 - OTHER SPECIFIED HEALTH STATUS Comment: 07/27/18: - Pt is a full code - DPOA is her daughter (Lita Vo)
[2018-07-27] MEDS ORDERED: ACETAMINOPHEN 325 MG TAB PO PRN (11:45)
--- NOTE | 2018-07-27 12:33 | RADIOLOGY REPORT ---
EXAM: CHEST, TWO VIEWS HISTORY: LEFT SIDED CHEST PAIN. TECHNIQUE: Two views of the chest were obtained. Comparison: Chest radiograph 07/12/18. FINDINGS: A similar appearance of an implanted left sided cardiac device. The cardiac silhouette is enlarged, stable. No appreciable pulmonary vascular congestion. No new focal pulmonary opacities. No significant pleural fluid collection. No visible pneumothorax. Multilevel chronic thoracic vertebral compression deformities are noted. IMPRESSION: 1. NO NEW OR ACUTE FOCAL LUNG FINDINGS. 2. STABLE CARDIAC SILHOUETTE ENLARGEMENT. JOB NUMBER: [id number] [facility]
--- NOTE | 2018-07-27 14:47 | CT ANGIOGRAM REPORT ---
EXAM: CT ANGIOGRAM OF THE CHEST HISTORY: WEAKNESS AND SHORTNESS OF BREATH, IMPLANTED DEFIBRILLATOR ON 07/22/18. TECHNIQUE: CT angiogram of the chest for pulmonary embolism was performed with 60 ml Omnipaque 350 intravenous contrast. Additional maximum intensity projection images were created on an independent workstation. Comparison: Chest radiograph 07/27/18. FINDINGS: The pulmonary arteries are well opacified. No filling defects to suggest embolism. The right main pulmonary artery has a dilated appearance, measuring up to 3.2 cm in transverse diameter. The heart is enlarged. No significant pericardial fluid collection. The thoracic aorta is mildly calcified, nonaneurysmal. Contrast bolus not adequate to assess for dissection. No mediastinal or hilar lymphadenopathy. Implanted left sided cardiac device is noted. Trace bilateral pleural effusions. Mild diffuse interlobular septal thickening bilaterally. No focal pulmonary consolidation. Minimal dependent lower lobe atelectasis in both lower lobes. No pneumothorax. Multiple small low attenuation lesions are seen throughout the liver. The largest such lesion measures approximately 25 mm in right hepatic lobe, with simple fluid attenuation compatible with a cyst. The remainder of the lesions are likely too small to further characterize. Multiple likely chronic vertebral body compression deformities in the mid thoracic region with associated thoracic kyphosis. Additional compression deformities in the upper thoracic spine and near the thoracolumbar junction, likely chronic as well. IMPRESSION: 1. NO EVIDENCE OF PULMONARY EMBOLISM. 2. CARDIOMEGALY. 3. MILD DIFFUSE NONSPECIFIC INTERLOBULAR SEPTAL THICKENING IN THE LUNGS; COULD REPRESENT INTERSTITIAL EDEMA. TRACE EFFUSIONS ARE NOTED BILATERALLY. 4. DILATED APPEARANCE OF THE RIGHT PULMONARY ARTERY, NONSPECIFIC AND MAY BE RELATED TO UNDERLYING PULMONARY HYPERTENSION OR DEVELOPMENTAL ANATOMIC VARIANCE. 5. MULTILEVEL THORACIC AND UPPER LUMBAR VERTEBRAL BODY COMPRESSION DEFORMITIES , THE MAJORITY OF WHICH APPEAR TO BE CHRONIC. IF THERE IS CLINICAL CONCERN FOR AN ACUTE COMPONENT CONSIDER FOLLOW-UP WITH MRI. 6. MULTIPLE LOW ATTENUATION HEPATIC LESIONS, THE LARGEST OF WHICH IS CONSISTENT WITH A HEPATIC CYST. ADDITIONAL SMALLER LOW ATTENUATION LESIONS ARE TOO SMALL TO FURTHER CHARACTERIZE, BUT LIKELY REPRESENT CYSTS OR HEMANGIOMAS IN THE ABSENCE OF KNOWN PRIMARY MALIGNANCY. JOB NUMBER: [id number] [facility]
[2018-07-27] MEDS ORDERED: TRAMADOL HCL 50 MG TABLET PO ONE (16:08)
--- NOTE | 2018-07-27 19:03 | Discharge Summary ---
Providers Discharge Summary Date: 07/27/18 Date of admission: 07/27/18 07:48 Expected Date of Discharge: 07/27/18 Attending physician: GODWIN DIEGO Primary care physician: NAIF JETER D.O. Consults: Consult Orders 07/27/18 08:03 Consult - Cardiology NOW Consulting Provider: LIANNA CORTES Physician Instructions: Reason For Exam: Chest pain Does pt have current public area attendant?: Heidi Physical Exam - Vital Signs Vital Signs: Vital Signs - Last 24 Hrs Temp Pulse Pulse Pulse Resp BP BP 07/27/18 12:00 97.5 F L 81 16 111/56 07/27/18 09:44 91 H 16 07/27/18 08:03 97.7 F 79 18 105/63 07/27/18 07:13 72 24 111/61 07/27/18 06:28 82 16 116/67 Pulse Ox 07/27/18 12:00 94 L 07/27/18 09:44 92 L 07/27/18 08:03 98 07/27/18 07:13 98 07/27/18 06:28 97 - General General Appearance: Alert, Oriented x3, Cooperative, No acute distress, Other ( Cachectic appearing, flat affect.) Limitations: No limitations - Head Head exam: Atraumatic, Normocephalic, Normal inspection Head exam detail: negative: Abrasion, Contusion, Edwards's sign, General tenderness, Hematoma, Laceration - Eye Eye exam: Normal appearance. negative: Conjunctival injection, Periorbital swelling, Periorbital tenderness, Scleral icterus - ENT ENT exam: Mucous membranes moist Ear exam: Normal external inspection. negative: Auricular hematoma, Auricular trauma Nasal Exam: negative: Active bleeding, Discharge, Dried blood, Foreign body Mouth exam: Normal external inspection. negative: Drooling, Laceration, Muffled voice, Tongue elevation - Neck Neck exam: Normal inspection. negative: Meningismus, Tenderness - Respiratory Respiratory exam: Normal lung sounds bilaterally, Chest wall tenderness (Post- operative changes/bruising fo the left chest wall c/w recent ICD placement). negative: Rales, Respiratory distress, Rhonchi, Stridor - Cardiovascular Cardiovascular Exam: Regular rate, Normal rhythm, Normal heart sounds Peripheral Pulses: 2+: Radial (R), Radial (L), Dorsalis Pedis (R), Dorsalis Pedis (L) - GI/Abdominal GI/Abdominal exam: Soft. negative: Rebound, Rigid, Tenderness - Rectal Rectal exam: Deferred - exam: Deferred - Extremities Extremities exam: Normal inspection. negative: Pedal edema, Tenderness - Back Back exam: Denies: CVA tenderness (R), CVA tenderness (L) - Neurological Neurological exam: Alert, Oriented X3 - Psychiatric Psychiatric exam: Flat affect, Normal mood - Skin Skin exam: Normal color. negative: Abrasion Type of lesion: negative: abrasion Hospitalization - Hospitalization Admission Diagnosis: Chest pain. Cardiomyopathy - Problem List/Discharge Diagnosis (1) Chest pain Status: Acute Discharge Diagnosis: Chest pain type: unspecified Qualified Code(s): R07.9 - Chest pain, unspecified Base Code: R07.9 - CHEST PAIN, UNSPECIFIED Comment: 07/27/18: - Episode of CP on 07/27, described as chest pressure and inability to take a deep breath, now mild sternal pain that occurs with deep breaths - Recent admission 07/12/18 for similar symptoms - EKG unchanged: LBBB - Initial troponin negative, serial troponins negative - air sampling and monitoring - ECHO 07/12/18: reduced LV systolic function similar to before, EF 10-15% - Cardiology consult with Dr. Cortes, will transfer to [facility] for further evaluation of ICD lead placement (2) Shortness of breath Status: Acute Base Code: R06.02 - SHORTNESS OF BREATH Comment: 07/27/18: Patient has vague symptoms of shortness of breath at rest and inability to take a deep breath - D-dimer elevated 0.92 - CTA chest negative for PE (3) CHF (congestive heart failure) Status: Chronic Discharge Diagnosis: Heart failure type: unspecified Heart failure chronicity: unspecified Qualified Code(s): I50.9 - Heart failure, unspecified Base Code: I50.9 - HEART FAILURE, UNSPECIFIED Comment: 07/27/18: - hx of CHF - ECHO 07/12/18: reduced LV systolic function similar to before, EF 10-15% - BNP 6398, previously 5439 on 07/12/18 - EKG: LBBB, unchanged from 07/12/18 - Continue Aldactone 12.5md daily, Coreg 3.125mg BID, ASA 81mg, Lasix - Cardiology consult with Dr. Cortes (4) At risk for deep venous thrombosis Status: Acute Base Code: Z91.89 - OTH PERSONAL RISK FACTORS, NOT ELSEWHERE CLASSIFIED Comment: 07/27/18: -No anticoagulant added to treatment due to increased age/fall risk -Continue daily ASA 81mg -Nursing to encourage ambulation (5) Full code status Status: Acute Base Code: Z78.9 - OTHER SPECIFIED HEALTH STATUS Comment: 07/27: - Pt is a full code - DPOA is her daughter (Lita Vo) - Hospitalization Course Disposition: Acute Care Hospital Transfer Hospital Course: 78 year old female patient presents to ED for symptoms of chest pain. 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 Patient stated she had attempted to shovel snow yesterday and found herself to tire easily and was unable to catch her breath. Patient did report taking 324mg ASA and 2 SL Nitro prior to the ED with mild improvement in symptoms. Denies fever, chills, abdominal pain, nausea , vomiting, or diarrhea. Past medical history includes osteoporosis, CHF, cardiomyopathy with most recent EF 10-15%, ICD placed Jul 02, 2018 (Dr. Fuller). Recent cardiac cath with no obstructive lesions identified. PCP: Dr. Jeter ED Course: EKG: LBBB with no change from 07/12/18, rate 82 Digoxin level sub-therapeutic Trop negative Chest x-ray: no acute process, post-op changes 07/27/18: Patient A&O x 4, resting comfortably in bed. Patient is poor historian and provides vague symptoms of current concerns. Patient reports ongoing chest pressure, shortness of breath, and difficulty taking a deep breath. CTA chest and cardiology consult pending. UPDATE: CTA chest negative for PE. Patient reports continued shortness of breath, inability to take a deep breath, and feelings of fatigue and weakness. Patient was seen by Dr. Cortes, will transfer to [facility] for further evaluation of ICD lead placement for possible diaphragmatic stimulation. Dr. Cortes accepts admission at [facility]. 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 Abnormal Labs: Abnormal Lab Results 07/27/18 07/27/18 07/27/18 Range/Units 06:40 06:40 06:40 MCV 99.0 H (81-97) fl Plt Count 113 L (130-400) K/uL MPV 12.8 H (7.4-10.4) fl Monocytes % 10.0 H (0-9) % D-Dimer 0.92 H (0-0.59) mg/L FEU Sodium 134 L (136-145) mmol/L Potassium 4.8 H (3.4-4.5) mmol/L Chloride 96 L (98-107) mmol/L Random Glucose 119 H (74-109) mg/dL NT-Pro-B Natriuret Pep (<450) pg/mL Digoxin 0.4 L (0.8-2.0) ng/mL 07/27/18 Range/Units 06:40 MCV (81-97) fl Plt Count (130-400) K/uL MPV (7.4-10.4) fl Monocytes % (0-9) % D-Dimer (0-0.59) mg/L FEU Sodium (136-145) mmol/L Potassium (3.4-4.5) mmol/L Chloride (98-107) mmol/L Random Glucose (74-109) mg/dL NT-Pro-B Natriuret Pep 6398.00 H (<450) pg/mL Digoxin (0.8-2.0) ng/mL Condition at Discharge: (2) Stable VTE Discharge VTE Reason For No Overlap Therapy: Not Indicated Discharge Medications - Discharge Medications Home Medications: Ambulatory Orders Aspirin [Ecotrin] 81 mg PO 1200 11/19/16 [Last Taken 07/11/18] Calcium Carbonate/Vitamin D3 [Calcium 500-Vit D3 400 Tablet] 1 each PO BID 11/19 [Last Taken 07/11/18] Cholecalciferol (Vitamin D3) [Vitamin D3] 1,000 unit PO DAILY 11/19/16 [Last Taken 07/11/18] Latanoprost 0.005% Opth Liliam [Xalatan] 1 drop OP QHS 11/19/16 [Last Taken ] Oxybutynin Chloride [Oxybutynin Chloride ER] 15 mg PO DAILY 11/19/16 [Last Taken 07/11/18] Spironolactone 25 mg PO DAILY 11/19/16 [Last Taken 07/11/18] Albuterol Sulfate [Proair Hfa] 1 - 2 puff IH .EVERY 4-6 HOURS PRN #1 inhaler [Last Taken 07/11/18] Digoxin [Lanoxin] 125 mcg PO DAILY #30 tablet 01/13/18 [Last Taken 07/11/18] Lisinopril [Zestril] 2.5 mg PO DAILY #30 tablet 01/13/18 [Last Taken 07/11/18] Carvedilol [Coreg] 6.25 mg PO BID 07/12/18 [Last Taken 07/11/18] Furosemide [Lasix] 20 mg PO Q48H 07/12/18 [Last Taken 07/11/18 10:00] Discharge Plan - Discharge Instructions Activity at Discharge: Increase Activity as Tolerated Quality Measures - Quality Measures Quality Measures: Advance Directives, Documentation of Current Medications in Medical Record, Elder Maltreatment Screen and Follow-Up Plan, Heart Failure, Screening for High Blood Pressure and F/U Documented - Current Medications Quality Measure: Measure #130: Documentation of Current Medications Documentation of Current Medications: <Current Medications Documented/Reviewed> [G8450] - Blood Pressure Screening Quality Measure: Screening for High Blood Pressure and Follow-Up Documented Does Patient Have Any of the Following: Active Dx of HTN Blood Pressure Classification: Normal BP Reading Systolic Measurement: 116 Diastolic Measurement: 67 Screening for High Blood Pressure: Patient Exclusion, Hx of HTN [G9744] - Heart Failure (MARIBEL/ARB Therapy) Quality Measure: Heart Failure Left Ventricular Systolic Function: LV Ejection Fraction less than 40% [3021F] MARIBEL Inhibitor or ARB Therapy for LVSD: <MARIBEL Inhibitor or ARB therapy prescribed or currently taken> [4010F] - Heart Failure (Beta-dm Therapy) Quality Measure: Heart Failure Left Ventricular Systolic Function: LV Ejection Fraction less than 40% [3021F] Beta-Dm Therapy for LVEF < 40%: <Beta-Dm Therapy Prescribed> [G8450] - Advance Directives Quality Measure: Measure #47: Care Plan Advance Directives Established: No Advance Directives Information Provided To Patient: Yes Advance Directives on File: No Living Will: Yes Power of Grapple Operator: Yes Power of Grapple Operator Name: Lita Hernandes Advance Care Planning: <Care Plan/Decision Maker Documented; Discussed & Documented> [1123F] - Elder Abuse Suspicion Index Screening: Elder Abuse Suspicion Index Screening Rely on people for bathing, dressing, shopping, banking, etc: No Prevented from getting food, clothes, medication, etc: No Made to feel shamed or threatened by someone: No Forced to sign papers or use money against will: No Feel afraid, touched in ways not wanted or hurt physically: No Poor eye contact, withdrawn, malnourished, cuts or bruises: No Screening Result: Negative result EASI Reference Information: Soila MARTINEZ, Kelton C, Irvin D, Elmer Yee.Development and validation of a tool to assist physicians identification of elder abuse: The Elder Abuse Suspicion Index (EASI ). Journal of Elder Abuse and Neglect, 2008; 20 (3): 276-300. - Elder Maltreatment Screen Quality Measures: Elder Maltreatment Screen and Follow-Up Plan Elder Maltreatment Screen: <Negative, No Follow-Up Plan Required> [G8734]
[2018-07-27] MEDS ORDERED: LATANOPROST 0.005% OPTH SOLUTION 2.5ML BOTTLE OPTH SCH (22:00)
[2018-07-28] MEDS ORDERED: FUROSEMIDE 20 MG TABLET PO SCH (10:00)
[2018-07-28] MEDS ORDERED: ASPIRIN 81 MG TABEC PO SCH (12:00)
--- NOTE | 2018-07-28 12:59 | Medical Records Consult ---
DATE OF CONSULTATION: 07/27/2018 REFERRING PHYSICIAN: Bret Munguia M.D. PRIMARY CARE PHYSICIAN: Jeferson Mccall D.O. REASON FOR CONSULTATION: Shortness of breath. HISTORY OF PRESENT ILLNESS: Ms. Nielson is an 78-year-old female with history of nonischemic cardiomyopathy with severely depressed LV function with an EF of about 20%. She underwent a heart catheterization in April of 2018 which showed no obstructive lesions. She subsequently underwent a defibrillator on 07/02/[address] Dixon for primary prophylaxis of sudden cardiac . The patient was admitted to [facility] on 07/12 for complaints of chest pain and after preliminary work-up she was discharged home as no cardiac issues were identified. The patient this morning around 4:00 a.m. woke up because of shortness of breath and is exhausted and she called her daughter who brought her to the Emergency Department. In the Emergency Department her D-Dimer was elevated and CTA of the chest with contrast was performed to rule out pulmonary embolism and that was ruled out. The patient, however, feels exhausted and says that she cannot take a deep breath. If she takes a deep breath she gets a sharp pain across the chest. She denies any pedal edema. She denies any fever or cough. ALLERGIES: THE PATIENT IS ALLERGIC TO SULFA WELL DENOSUMAB. HOME MEDICATIONS: Coreg 3.125 mg b.i.d., Lanoxin 125 mg daily, aspirin 81 mg daily, Spironolactone 25 mg daily, and Lisinopril 2.5 mg daily. REVIEW OF SYSTEMS: The patient denies any fevers or chills. Denies any lightheadedness or dizziness. She complains of chest pain and shortness of breath as explained in the HPI. Denies any pedal edema. PHYSICAL EXAMINATION: On physical examination the patient appears exhausted. Her vital signs show a blood pressure of 118/65 mmHg. Her oxygen saturation is reading at 97-98% on room air. CARDIAC: She has normal S1 and S2. RESPIRATORY: Reveals the lungs are clear to auscultation bilaterally. ABDOMEN: Soft and nontender. EXTREMITIES: There is no pedal edema. NEUROLOGICAL: There are no focal neurological deficits. Her CTA of the chest ruled out pulmonary embolism. Her laboratory data shows her white count to be 7.0, hemoglobin 13.2, hematocrit 39.9, platelet count is 113, sodium is 134, potassium is 4.8, chloride is 96, AST is 32, ALT is 22, Troponin is less than 0.10. Her Pro-BNP is elevated at 6,398. Her albumin is 4.1. ASSESSMENT/PLAN: 1. SHORTNESS OF BREATH. THE PATIENT'S SHORTNESS OF BREATH HAS A PLEURITIC CHARACTERISTIC IT IS EXACERBATED BY DEEP BREATHING. I REVIEWED THE CTA SCAN MYSELF AND THE RV LEAD APPEARS TO BE IN PLACE IN THE RIGHT VENTRICLE AND THERE IS NO PERICARDIAL OR PLEURAL EFFUSION. BECAUSE OF THE RECENT IMPLANTATION OF THE ICD AND HER PLEURITIC CHEST PAIN I AM CONCERNED ABOUT LEAD PLACEMENT AND WOULD LIKE HER TO HAVE THE ICD INTERROGATED FOR EVALUATION FOR DIAPHRAGMATIC STIMULATION. 2. THE PATIENT ALSO HAS CONGESTIVE HEART FAILURE EVIDENCED BY A PRO-BNP LEVEL OF GREATER THAN 6,000. I AM GOING TO START HER ON IV DIURETICS AND WOULD RECOMMEND HER TO BE TRANSFERRED TO [facility] FOR FURTHER MANAGEMENT OF HER HEART FAILURE WELL EVALUATION OF HER ICD. THIS WAS EXPLAINED TO THE PATIENT AND HER DAUGHTER AND WAS ALSO DISCUSSED WITH THE PRIMARY TEAM AND WE WILL ARRANGE FOR HER TRANSFER TO [facility]. I ALSO DISCUSSED THIS WITH MY COLLEAGUE DR. DIXON AND HE IS ALSO IN AGREEMENT TO EVALUATING THE ICD LEAD AND TO ASSESS THE NEED FOR REPOSITIONING OR CHANGING THE THRESHOLDS AND OUTPUTS. Thank you very much for this consultation. JOB NUMBER: [id number] MTDD
== END 2018-07-27 19:10 | disposition short-term general hospital (02) ==
LOC: ER 06:27 → MEDSURG 07:48 → UNDOADMOB 07:48
PROVIDERS: ADMIT Internal Medicine; ATTEND Internal Medicine
DX: R07.9 Chest pain, unspecified (principal); I42.9 Cardiomyopathy, unspecified; R06.02 Shortness of breath; I50.9 Heart failure, unspecified; I10 Essential (primary) hypertension; M81.0 Age-related osteoporosis without current pathological fracture; Z95.810 Presence of automatic (implantable) cardiac defibrillator; Z95.5 Presence of coronary angioplasty implant and graft
CPT/HCPCS: 71046; 71275; 80053; 80162; 83880; 84484; 85025; 85379; 93005; 93010; 94760; 99236; 99285

== ENCOUNTER 2018-08-18 09:01 | Emergency (ER) | payer MEDICARE, BC ==
--- NOTE | 2018-08-18 09:32 | Emergency Department Record ---
History of Present Illness - General Chief Complaint: Difficulty Breathing Stated Complaint: CLARISSA Time Seen by Provider: 08/18/18 09:17 Source: Patient, Family Mode of Arrival: Wheelchair Limitations: No limitations - History of Present Illness Initial Comments: The patient is here due to chronic worsening SOB for at least 2 months. She relates that the CLARISSA has worsened since she had an AICD placed about 8 weeks ago. The patient has a hx of a non-ischemic cardiomyopathy and had a neg heart cath 05/16. She does have an EF of 10-15%. The patient states she is mainly just fatigued all the time and does have chronic UMANA. She denies any recent weight gain or any significant CP, back pain or leg swelling. She did have a neg CT for PE 3 weeks ago for this same problem. The patient did drink extra fluid (32 oz) in the last day for a lab test she was going to have later. MD Complaint: Shortness of breath Onset/Timin -: Month(s) Severity: Moderate Consistency: Intermittent Improves With: Rest Worsens With: Exertion Known History Of: Congestive heart failure Associated Symptoms: Other Treatments Prior to Arrival: None - Related Data Home Oxygen Therapy: No Home Medications Medication Instructions Recorded Confirmed Last Taken Cranberry 400 mg PO DAILY 08/18/18 08/18/18 08/18/18 Ibandronate Sodium [Boniva] 1 ml IM WEEKLY 08/18/18 08/18/18 08/11/18 Multivitamin [Multi-Vitamin Daily] 1 tab PO DAILY 08/18/18 08/18/18 08/18/18 Previous Rx's Medication Instructions Recorded Digoxin [Lanoxin] 125 mcg PO DAILY #30 tablet 01/13/18 Lisinopril [Zestril] 2.5 mg PO DAILY #30 tablet 01/13/18 Allergies Allergy/AdvReac Type Severity Reaction Status Date / Time denosumab [From Prolia] Allergy SWELLING Verified 08/18/18 09:07 OF THE TONGUE Sulfa (Sulfonamide Allergy PT UNSURE Verified 08/18/18 09:07 Antibiotics) OF REACTION Travel Screening - Travel/Exposure Within Last 30 Days Have you traveled within the last 30 days?: No - Travel/Exposure Within Last Year Have you traveled outside the [place] in the last year?: No - Additonal Travel Details Have you been exposed to anyone with a communicable illness?: No - Travel Symptoms Symptom Screening: None Review of Systems Constitutional: Denies: Chills, Fever Eyes: Denies: Eye discharge ENT: Denies: Congestion Respiratory: Reports: Dyspnea. Denies: Cough Cardiovascular: Denies: Chest pain Endocrine: Reports: Fatigue Gastrointestinal: Denies: Nausea Genitourinary: Denies: Dysuria Musculoskeletal: Denies: Arthralgia, Back pain Skin: Denies: Bruising Past Medical History - SOCIAL HISTORY Smoking Status: Never smoker Alcohol Use: None Drug Use: None - RESPIRATORY Hx Respiratory Disorders: No - CARDIOVASCULAR Hx Cardio Disorders: Yes Hx CHF: Yes (hx of when cardiomyopathy started) Hx Edema: Yes (hx of) Hx Hypertension: Yes (on meds good control) Comment:: cardiomyopathy dx'd 2003. stable now. works out 40 mins a day and walks nirmal - NEURO Hx Neuro Disorders: No - GI Hx GI Disorders: No - Hx Genitourinary Disorders: Yes Hx Bladder Problem: Yes (bladder pressure) - ENDOCRINE Hx Endocrine Disorders: No - MUSCULOSKELETAL Hx Musculoskeletal Disorders: Yes Hx Osteoporosis: Yes - PSYCH Hx Psych Problems: Yes Hx Anxiety: Yes - HEMATOLOGY/ONCOLOGY Hx Hematology/Oncology Disorders: No Family Medical History Any Significant Family History?: Yes Hx Cancer: Mother Hx Heart Disease: Father Physical Exam - General General Appearance: Alert, Oriented x3, Cooperative, No acute distress - Head Head exam: Atraumatic, Normocephalic, Normal inspection - Eye Eye exam: Normal appearance, PERRL, EOMI - ENT Throat exam: Normal inspection. negative: Tonsillar erythema, Tonsillar exudate - Neck Neck exam: Normal inspection, Full ROM. negative: Tenderness - Respiratory Respiratory exam: Normal lung sounds bilaterally. negative: Respiratory distress - Cardiovascular Cardiovascular Exam: Regular rate, Normal rhythm, Normal heart sounds - GI/Abdominal GI/Abdominal exam: Soft, Normal bowel sounds. negative: Tenderness - Rectal Rectal exam: Heme (-) stool - Extremities Extremities exam: Normal inspection, Full ROM, Normal capillary refill. negative: Calf tenderness, Pedal edema, Tenderness - Back Back exam: Reports: Normal inspection - Neurological Neurological exam: Alert, Oriented X3. negative: Altered, Motor sensory deficit - Skin Skin exam: negative: Rash Course Vital Signs 08/18/18 08/18/18 09:12 09:28 Temperature 97.9 F Pulse Rate 81 Respiratory 28 H Rate Blood Pressure 104/52 Pulse Ox 99 - Reevaluation(s) Reevaluation #1: The patient is doing OK at this time. Her biox is stable in the high 90's and she is able to lie flat with no SOB or CLARISSA. I did explain to her that her lab tests and xray appear similar to her previous evaluations in the ER. I did offer to admit the patient to the hospital overnight but she is declining that plan and would like to go home. 08/18/18 11:08 Reevaluation #2: The patient is doing very well at this time. She has urinated 3 times and is able to get up and walk with no difficulty or SOB. On exam her lungs are clear and her RA biox was just 97% when I was in the room. I did again offer to keep the patient in the hospital overnight but she again refused. I then did discuss the plan with Dr. Munguia who will be her PCP. He does agree with the plan to discharge and he will see her next Thursday in the office at 10:00am. 08/18/18 12:35 Medical Decision Making - Data Complexity MDM Data: Labs Ordered and/or Reviewed, X-Ray Ordered and/or Reviewed, EKG Ordered and/or Reviewed - Lab Data Result diagrams: 08/18/18 09:45 08/18/18 09:45 - EKG Data -: EKG Interpreted by Me EKG: No Acute Changes, Unchanged From Previous, LBBB - Radiology Data Radiology results: Report reviewed (CXR: CMG with CHF. Similar to xray 07/27/18.) Disposition Disposition: Discharge Clinical Impression: CHF (congestive heart failure) Qualifiers: Heart failure type: other Qualified Code(s): I50.9 - Heart failure, unspecified Disposition: Home, Self-Care Condition: (2) Stable Instructions: Dyspnea (ED) Additional Instructions: Please continue your regular medicines and limit your fluid intake and do not use salt. Please see Dr. Munguia next week at 10am in the [facility] practice office. Return to the ER for any worsening symptoms of shortness of breath, or any pain or fever. Forms: Patient Portal Access Time of Disposition: 12:37 Quality - Quality Measures Quality Measures: N/A - Blood Pressure Screening View Details: Yes Does Patient Have Any of the Following: No Blood Pressure Classification: Normal BP Reading Systolic Measurement: 97 Diastolic Measurement: 50 Screening for High Blood Pressure: < Normal BP, F/U Not Required > [G6039]
[2018-08-18 09:50] LABS: BASO % 0.6 % (0-6); EOS % 4.6 % (0-6); GRAN % 61.7 % (47-80); HEMATOCRIT 40.7 % (35.0-47.0); HEMOGLOBIN 13.5 gm/dl (11.6-16.0); LYMPH % 21.5 % (16-45); MEAN CELL VOLUME 98.3 fl (81-97); MEAN CORPUSCULAR HEMOGLOBIN 32.6 pg (27-33); MEAN CORPUSCULAR HGB CONC 33.2 g/dl (32-36); MEAN PLATELET VOLUME 13.4 fl (7.4-10.4); MONO % 11.6 % (0-9); PLATELET COUNT 131 K/uL (130-400); RED BLOOD COUNT 4.14 M/uL (3.80-5.40); RED CELL DISTRIBUTION WIDTH 13.4 % (11.5-14.5); WHITE BLOOD COUNT W/O DIFF 6.7 K/uL (4.2-12.2)
[2018-08-18 10:03] LABS: BLOOD UREA NITROGEN 19 mg/dL (8-23); CREATININE 0.8 mg/dL (0.5-0.9); EST GLOMERULAR FILTRATION RATE > 60 mL/min
[2018-08-18 10:04] LABS: TOTAL PROTEIN 6.3 g/dL (6.6-8.7)
[2018-08-18 10:06] LABS: GLUCOSE,RANDOM 104 mg/dL (74-109)
[2018-08-18 10:08] LABS: ALB/GLOB RATIO 1.3 (1.1-1.8); ALBUMIN 3.5 g/dL (4.0-5.0); ALKALINE PHOSPHATASE 43 U/L (45-87); ALT/SGPT 20 U/L (<33); AST/SGOT 28 U/L (10.0-35.0); CREATINE PHOSPHOKINASE 65 U/L (26-192)
[2018-08-18 10:12] LABS: CKMB 3.2 ng/mL (<3.77)
[2018-08-18 10:19] LABS: THYROID STIMULATING HORMONE 1.42 uIU/mL (0.270-4.20)
[2018-08-18] MEDS ORDERED: FUROSEMIDE IV 40MG/4ML VIAL IVP ONE (10:40)
[2018-08-18 15:26] LABS: INR 1.1; PARTIAL THROMBOPLASTIN TIME 27.9 SECONDS (24.5-39.1); PROTHROMBIN TIME (PATIENT) 11.2 SECONDS (9.5-12.1)
--- NOTE | 2018-08-20 12:34 | RADIOLOGY REPORT ---
EXAM: CHEST, TWO VIEWS HISTORY: DIFFICULTY BREATHING FOR TWO MONTHS. TECHNIQUE: Two views of the chest were obtained. Comparison: Chest radiograph 07/27/18. FINDINGS: Similar appearance of implanted left sided cardiac defibrillator device. The cardiac silhouette is enlarged, similar from prior. Mild pulmonary vascular congestion. Small bilateral pleural effusions, likely increased from prior. No pneumothorax. The lungs appear hyperinflated. Multilevel thoracic vertebral compression deformities overall similar from prior, limited visualization due to generalized osteopenia. IMPRESSION: 1. CARDIAC SILHOUETTE ENLARGEMENT AND PULMONARY VASCULAR CONGESTION, SIMILAR FROM PRIOR. 2. SMALL BILATERAL PLEURAL EFFUSIONS, INCREASED FROM PRIOR. 3. THE LUNGS ARE HYPERINFLATED SUGGESTING UNDERLYING COPD. JOB NUMBER: [id number] [facility]
== END 2018-08-18 12:51 | disposition home or self-care (01) ==
LOC: ER 09:01
DX: I50.9 Heart failure, unspecified (principal); R06.00 Dyspnea, unspecified; R53.83 Other fatigue; I10 Essential (primary) hypertension; Z95.810 Presence of automatic (implantable) cardiac defibrillator
CPT/HCPCS: 71046; 80053; 80162; 82550; 82553; 83880; 84443; 84484; 85025; 85610; 85730; 93005; 93010; 96374; 99284; J1940

== ENCOUNTER 2018-08-26 13:48 | Observation (INO) | payer MEDICARE, BC ==
--- NOTE | 2018-08-26 14:09 | Emergency Department Record ---
History of Present Illness - General Chief Complaint: Cough Stated Complaint: COUGH Time Seen by Provider: 08/26/18 13:50 Source: Patient, Family Mode of Arrival: Wheelchair Limitations: No limitations - History of Present Illness Initial Comments: The patient is here due to an 8 week hx of SOB, cough and weakness ever since she had a AICD placed about 8 weeks ago. She has been in the hospital twice for similar issues last month and was here in the ER 8 days ago for the same issues. Since she was last in the ER she did see her PCP and At Risk Specialist for the same issues and no dx was given. MD Complaint: Cough Onset/Timin -: Week(s) Severity: Moderate - Related Data Previous Rx's Medication Instructions Recorded Digoxin [Lanoxin] 125 mcg PO DAILY #30 tablet 01/13/18 Lisinopril [Zestril] 2.5 mg PO DAILY #30 tablet 01/13/18 Allergies Allergy/AdvReac Type Severity Reaction Status Date / Time denosumab [From Prolia] Allergy SWELLING Verified 08/26/18 13:51 OF THE TONGUE Sulfa (Sulfonamide Allergy PT UNSURE Verified 08/26/18 13:51 Antibiotics) OF REACTION Travel Screening - Travel/Exposure Within Last 30 Days Have you traveled within the last 30 days?: No - Travel/Exposure Within Last Year Have you traveled outside the [place] in the last year?: No - Additonal Travel Details Have you been exposed to anyone with a communicable illness?: No - Travel Symptoms Symptom Screening: None Review of Systems Constitutional: Denies: Chills, Fever Eyes: Denies: Eye discharge ENT: Denies: Congestion Respiratory: Reports: Dyspnea. Denies: Cough Cardiovascular: Reports: Dyspnea on exertion. Denies: Chest pain Endocrine: Reports: Fatigue Gastrointestinal: Denies: Diarrhea Genitourinary: Denies: Dysuria Musculoskeletal: Denies: Back pain Skin: Denies: Bruising Neurological: Denies: Abnormal gait Past Medical History - SOCIAL HISTORY Smoking Status: Never smoker Alcohol Use: None Drug Use: None - RESPIRATORY Hx Respiratory Disorders: No - CARDIOVASCULAR Hx Cardio Disorders: Yes Hx CHF: Yes (hx of when cardiomyopathy started) Hx Edema: Yes (hx of) Hx Hypertension: Yes (on meds good control) Comment:: cardiomyopathy dx'd 2003. stable now. works out 40 mins a day and walks nirmal - NEURO Hx Neuro Disorders: No - GI Hx GI Disorders: No - Hx Genitourinary Disorders: Yes Hx Bladder Problem: Yes (bladder pressure) - ENDOCRINE Hx Endocrine Disorders: No - MUSCULOSKELETAL Hx Musculoskeletal Disorders: Yes Hx Osteoporosis: Yes - PSYCH Hx Psych Problems: Yes Hx Anxiety: Yes - HEMATOLOGY/ONCOLOGY Hx Hematology/Oncology Disorders: No Family Medical History Any Significant Family History?: Yes Hx Cancer: Mother Hx Heart Disease: Father Physical Exam - General General Appearance: Alert, Cooperative, No acute distress - Head Head exam: Atraumatic, Normocephalic, Normal inspection - Eye Eye exam: Normal appearance, PERRL, EOMI - ENT Throat exam: Normal inspection. negative: Tonsillar erythema, Tonsillar exudate - Neck Neck exam: Normal inspection, Full ROM. negative: Tenderness - Respiratory Respiratory exam: Rales (at the bases.). negative: Normal lung sounds bilaterally, Decreased breath sounds - Cardiovascular Cardiovascular Exam: Regular rate, Normal rhythm, Normal heart sounds. negative : Diastolic murmur, Systolic murmur - GI/Abdominal GI/Abdominal exam: Soft, Normal bowel sounds. negative: Tenderness - Extremities Extremities exam: Normal inspection, Full ROM, Normal capillary refill. negative: Tenderness - Neurological Neurological exam: Alert, Normal gait. negative: Abnormal gait, Motor sensory deficit - Psychiatric Psychiatric exam: Depressed Course Vital Signs 08/26/18 13:52 Temperature 98.1 F Pulse Rate 83 Respiratory 20 Rate Blood Pressure 106/36 Pulse Ox 98 - Reevaluation(s) Reevaluation #1: The patient is doing OK at this time but still does not feel well. She clearly is in worse heart failure than last week so we will start some IV Lasix and admit the patient to the hospital. I did discuss the case with Abby and she agrees to admit the patient for Dr. Munguia. 08/26/18 15:06 Medical Decision Making - Data Complexity MDM Data: Labs Ordered and/or Reviewed, X-Ray Ordered and/or Reviewed, EKG Ordered and/or Reviewed - Lab Data Result diagrams: 08/26/18 14:15 08/26/18 14:15 - EKG Data -: EKG Interpreted by Me EKG: No Acute Changes, Unchanged From Previous, LBBB - Radiology Data Radiology results: Report reviewed (CXR: CHF and CMG.) Disposition Disposition: Admit Clinical Impression: CHF (congestive heart failure) Disposition: Still a Patient at [facility] Decision to Admit: Admit from ER Decision to Admit Date: 08/26/18 Decision to Admit Time: 15:08 Accepting Physician: Nilda Greenberg Discussed w/Accepting Physician: 15:08 Condition: (2) Stable Forms: Patient Portal Access Time of Disposition: 15:08 Quality - Quality Measures Quality Measures: N/A - Blood Pressure Screening View Details: Yes Does Patient Have Any of the Following: No Blood Pressure Classification: Normal BP Reading Systolic Measurement: 106 Diastolic Measurement: 36 Screening for High Blood Pressure: < Normal BP, F/U Not Required > [G8783]
[2018-08-26 14:25] LABS: BASO % 0.4 % (0-6); EOS % 3.6 % (0-6); GRAN % 69.6 % (47-80); HEMATOCRIT 42.7 % (35.0-47.0); HEMOGLOBIN 14.1 gm/dl (11.6-16.0); LYMPH % 17.5 % (16-45); MEAN CELL VOLUME 98.8 fl (81-97); MEAN CORPUSCULAR HEMOGLOBIN 32.6 pg (27-33); MEAN PLATELET VOLUME 13.6 fl (7.4-10.4); MONO % 8.9 % (0-9); PLATELET COUNT 110 K/uL (130-400); RED BLOOD COUNT 4.32 M/uL (3.80-5.40); RED CELL DISTRIBUTION WIDTH 13.8 % (11.5-14.5); WHITE BLOOD COUNT W/O DIFF 7.4 K/uL (4.2-12.2)
[2018-08-26 14:34] LABS: BLOOD UREA NITROGEN 20 mg/dL (8-23)
[2018-08-26 14:35] LABS: CREATININE 0.6 mg/dL (0.5-0.9); EST GLOMERULAR FILTRATION RATE > 60 mL/min
[2018-08-26 14:37] LABS: GLUCOSE,RANDOM 114 mg/dL (74-109)
[2018-08-26 14:38] LABS: INR 1.1; PARTIAL THROMBOPLASTIN TIME 23.3 SECONDS (24.5-39.1); PROTHROMBIN TIME (PATIENT) 10.6 SECONDS (9.5-12.1)
[2018-08-26 14:40] LABS: CREATINE PHOSPHOKINASE 67 U/L (26-192)
[2018-08-26 14:43] LABS: CKMB 2.7 ng/mL (<3.77)
[2018-08-26] MEDS ORDERED: FUROSEMIDE IV 40MG/4ML VIAL IVP ONE (14:49)
[2018-08-26 14:50] LABS: THYROID STIMULATING HORMONE 1.47 uIU/mL (0.270-4.20)
[2018-08-26 14:54] LABS: DIGOXIN 0.6 ng/mL (0.8-2.0)
[2018-08-26] MEDS ORDERED: ACETAMINOPHEN 325 MG TAB PO ONE (15:11)
[2018-08-26] MEDS ORDERED: ACETAMINOPHEN 325 MG TAB PO PRN (16:35)
[2018-08-26] MEDS ORDERED: HYDROCODONE/APAP 5/325MG TABLET PO PRN (17:20)
[2018-08-26] MEDS: HYDROCODONE/APAP 5/325MG TABLET PO PRN (18:05)
[2018-08-26] MEDS: ASPIRIN 325 MG TAB ENTERIC-COATED PO SCH (19:10)
[2018-08-26] MEDS: LATANOPROST 0.005% OPTH SOLUTION 2.5ML BOTTLE OPTH SCH (21:19)
[2018-08-26] MEDS: OXYBUTYNIN CHLORIDE 5MG TABLET PO SCH (21:19)
[2018-08-26] MEDS: CARVEDILOL 3.125 MG TABLET PO SCH (21:19)
[2018-08-27] MEDS: HYDROCODONE/APAP 5/325MG TABLET PO PRN ×2 (01:06→14:01)
[2018-08-27] MEDS ORDERED: DIPHENHYDRAMINE HCL 25 MG CAPSULE PO ONE (02:25)
[2018-08-27] MEDS ORDERED: CARVEDILOL 3.125 MG TABLET PO SCH (10:00)
[2018-08-27] MEDS ORDERED: MORPHINE SULFATE 10 MG/ML VIAL IVP ONE (10:00)
[2018-08-27] MEDS: FUROSEMIDE IV 40MG/4ML VIAL IVP SCH (10:48)
[2018-08-27] MEDS: OXYBUTYNIN CHLORIDE 5MG TABLET PO SCH ×3 (10:49→21:58)
[2018-08-27] MEDS: SPIRONOLACTONE 25 MG TAB PO SCH (10:49)
[2018-08-27] MEDS: CARVEDILOL 3.125 MG TABLET PO SCH ×2 (10:49→21:59)
[2018-08-27] MEDS: DIGOXIN 125 MCG TABLET PO SCH (10:49)
[2018-08-27] MEDS: ASPIRIN 325 MG TAB ENTERIC-COATED PO SCH (10:50)
[2018-08-27] MEDS: LISINOPRIL 5 MG TABLET PO SCH (10:50)
--- NOTE | 2018-08-27 11:46 | History & Physical ---
History of Present Illness - Date of Service Date of Service for History & Physical: 08/27/18 - History of Present Illness Admitting Diagnosis: 1. Acute CHF History of Present Illness: Mrs. Nielson is an 78 year-old female who presented to the ED on 08/26/18 with c/o 8-week history of shortness of breath, cough, and weakness that has progressively worsened since having an AICD placed on 07/02/[address] Fuller. She was hospitalized on 07/12/18 with a syncopal episode and again on 07/27/18 with similar symptoms- she was transferred to [facility] at that time for further evaluation of her AICD placement. She was seen in the ED 8 days ago with the same complaint. Since she was last in the ER, she did see her PCP (Dr. Munguia) and Home Performance Laborer (Dr. Waller). She has a history of CHF with severe mitral regurgitation, cardiomegaly, EF 10-15%, HTN, osteoporosis, and anxiety. Her daughter, Stephanie Hernandes, is her DPOA. In the ED, her vitals were: BP 106/36, HR 83, RR 20, 98% on room air, and T 98.1F. Labs revealed BNP of 7377, sub-therapeutic digoxin level at 0.6. EKG demonstrated L BBB, unchanged from previous. Chest xray was negative for acute change. She was admitted for observation for CHF. 08/26/18 1700: Pt. is resting in bed, her daughter is at her bedside. Pt. appears to be in mild respiratory distress at this time- she is mouth breathing and short of breath with talking. Will plan to continue oxygen via nasal cannula, tele, diuretics, and lab monitoring. Planning for cardiology consult tomorrow morning. 08/27/18: Pt.is sitting up in bed in tri-pod position, she appears in more respiratory distress this morning, rales auscultated throughout lung rice. Pt. states that she feels like she just ran 2 miles and can't catch her breath. Daughter reports that she only slept about [address] Galvin saw pt. this morning- he feels pt's symptoms are due to her end-stage CHF and her treatment is optimized at this time. Spoke with Dr. Munguia and pt'd daughter , Lita, and discussed consideration of palliative care or hospice care. Lita states that her mother has already voiced that she just wants to be comfortable. Social work consult ordered for palliative care vs. hospice placement. Ordered 2mg morphine q4h for pain and ativan 1mg q4h prn restlessness, will start remeron 15mg qhs. PCP: Dr. Munguia Cardiology: Dr. Waller Vascular surgeon: Dr. Fuller Travel Screening - Travel/Exposure Within Last 30 Days Have you traveled within the last 30 days?: No - Travel/Exposure Within Last Year Have you traveled outside the [place] in the last year?: No - Additonal Travel Details Have you been exposed to anyone with a communicable illness?: No - Travel Symptoms Symptom Screening: None Review of Systems Constitutional: Denies: Chills, Fever Eyes: Denies: Eye discharge ENT: Denies: Congestion Respiratory: Reports: Dyspnea. Denies: Cough Cardiovascular: Reports: Dyspnea on exertion. Denies: Chest pain Endocrine: Reports: Fatigue Gastrointestinal: Denies: Diarrhea Genitourinary: Denies: Dysuria Musculoskeletal: Denies: Back pain Skin: Denies: Bruising Neurological: Denies: Abnormal gait Past Medical History - SOCIAL HISTORY Smoking Status: Never smoker Alcohol Use: None Drug Use: None - RESPIRATORY Hx Respiratory Disorders: No - CARDIOVASCULAR Hx Cardio Disorders: Yes Hx CHF: Yes (hx of when cardiomyopathy started) Hx Edema: Yes (hx of) Hx Hypertension: Yes (on meds good control) Comment:: cardiomyopathy dx'd 2003. stable now. works out 40 mins a day and walks nirmal - NEURO Hx Neuro Disorders: No - GI Hx GI Disorders: No - Hx Genitourinary Disorders: Yes Hx Bladder Problem: Yes (bladder pressure) - ENDOCRINE Hx Endocrine Disorders: No - MUSCULOSKELETAL Hx Musculoskeletal Disorders: Yes Hx Osteoporosis: Yes - PSYCH Hx Psych Problems: Yes Hx Anxiety: Yes - HEMATOLOGY/ONCOLOGY Hx Hematology/Oncology Disorders: No Family Medical History Any Significant Family History?: Yes Hx Cancer: Mother Hx Heart Disease: Father H&P Meds/Allergies - Allergies Allergies: Allergies Allergy/AdvReac Type Severity Reaction Status Date / Time denosumab [From Prolia] Allergy SWELLING Verified 08/26/18 13:51 OF THE TONGUE Sulfa (Sulfonamide Allergy PT UNSURE Verified 08/26/18 13:51 Antibiotics) OF REACTION - Home Medications Previous Rx's Medication Instructions Recorded Digoxin [Lanoxin] 125 mcg PO DAILY #30 tablet 01/13/18 Lisinopril [Zestril] 2.5 mg PO DAILY #30 tablet 01/13/18 - Active Medications Active Medications: Current Medications Acetaminophen (Tylenol 325mg) 650 mg PO Q6H PRN PRN Reason: PAIN - MILD(1-4)/FEVER Last Admin: 08/27/18 10:51 Dose: 650 mg Hydrocodone Bitart/Acetaminophen ([place] 5mg/325mg) 1 each PO Q4H PRN PRN Reason: PAIN - MODERATE (5-7) Last Admin: 08/27/18 01:06 Dose: 1 each Aspirin (Ecotrin (Ec)) 325 mg PO DAILY [facility] Last Admin: 08/27/18 10:50 Dose: 325 mg Carvedilol (Coreg) 6.25 mg PO BID [facility] Last Admin: 08/27/18 10:49 Dose: 6.25 mg Digoxin (Lanoxin) 125 mcg PO DAILY [facility] Last Admin: 08/27/18 10:49 Dose: 125 mcg Furosemide (Lasix Iv) 40 mg IVP DAILY [facility] Last Admin: 08/27/18 10:48 Dose: 40 mg Latanoprost (Xalatan) 1 drop OPTH QHS [facility] Last Admin: 08/26/18 21:19 Dose: 1 drop Lisinopril (Zestril) 2.5 mg PO DAILY [facility] Last Admin: 08/27/18 10:50 Dose: 2.5 mg Mirtazapine (Remeron) 15 mg PO QHS [facility] Oxybutynin Chloride (Ditropan) 5 mg PO TID [facility] Last Admin: 08/27/18 10:49 Dose: 5 mg Spironolactone (Aldactone) 12.5 mg PO DAILY [facility] Last Admin: 08/27/18 10:49 Dose: 12.5 mg Physical Exam - Vital Signs Vital Signs: Vital Signs - Last 24 Hrs Temp Pulse Pulse Resp BP BP BP 08/27/18 08:00 97.5 F L 93 H 17 104/50 08/27/18 06:05 08/27/18 02:16 97.4 F L 84 20 100/51 08/26/18 21:00 98.1 F 85 18 103/57 08/26/18 16:57 97.4 F L 88 17 95/57 08/26/18 16:42 98.1 F 83 20 106/36 08/26/18 13:52 98.1 F 83 20 106/36 Pulse Ox 08/27/18 08:00 96 08/27/18 06:05 99 08/27/18 02:16 98 08/26/18 21:00 97 08/26/18 16:57 97 08/26/18 16:42 98 08/26/18 13:52 98 - General General Appearance: Alert, Cooperative, Mild distress Limitations: No limitations - Head Head exam: Atraumatic, Normocephalic, Normal inspection - Eye Eye exam: Normal appearance, PERRL, EOMI - ENT Throat exam: Normal inspection. negative: Tonsillar erythema, Tonsillar exudate - Neck Neck exam: Normal inspection, Full ROM. negative: Tenderness - Respiratory Respiratory exam: Rales (at the bases.). negative: Normal lung sounds bilaterally, Decreased breath sounds - Cardiovascular Cardiovascular Exam: Regular rate, Normal rhythm, S3, Other (mitral murmur). negative: Diastolic murmur Peripheral Pulses: 2+: Radial (R), Radial (L), Dorsalis Pedis (R), Dorsalis Pedis (L) - GI/Abdominal GI/Abdominal exam: Soft, Normal bowel sounds. negative: Tenderness - Extremities Extremities exam: Normal inspection, Full ROM, Normal capillary refill. negative: Tenderness - Neurological Neurological exam: Alert, Normal gait. negative: Abnormal gait, Motor sensory deficit - Psychiatric Psychiatric exam: Depressed Results - Labs Result Diagrams: 08/26/18 14:15 08/26/18 14:15 Labs Last 24 Hours: Laboratory Results - last 24 hr 08/26/18 08/26/18 08/26/18 14:15 14:15 14:15 WBC 7.4 RBC 4.32 Hgb 14.1 Hct 42.7 MCV 98.8 H MCH 32.6 MCHC 33.0 RDW 13.8 Plt Count 110 L MPV 13.6 H Gran % 69.6 Lymphocytes % 17.5 Monocytes % 8.9 Eosinophils % 3.6 Basophils % 0.4 PT 10.6 INR 1.1 APTT 23.3 L Sodium 131 L Potassium 5.3 H Chloride 99 Carbon Dioxide 21.0 L Anion Gap 11.0 BUN 20 Creatinine 0.6 Estimated GFR > 60 Random Glucose 114 H Calcium 9.3 Creatine Kinase 67 CK-MB (CK-2) 2.7 Troponin T < 0.010 NT-Pro-B Natriuret Pep 7377.00 H TSH 1.47 Digoxin 0.6 L 08/26/18 08/27/18 20:55 06:17 WBC RBC Hgb Hct MCV MCH MCHC RDW Plt Count MPV Gran % Lymphocytes % Monocytes % Eosinophils % Basophils % PT INR APTT Sodium Potassium Chloride Carbon Dioxide Anion Gap BUN Creatinine Estimated GFR Random Glucose Calcium Creatine Kinase CK-MB (CK-2) Troponin T < 0.010 < 0.010 NT-Pro-B Natriuret Pep TSH Digoxin - Imaging and Cardiology Chest x-ray Status: Image reviewed VTE H&P Assessment - Risk for VTE Risk for VTE: Yes Risk Level: Moderate Risk Assessment Date: 08/27/18 Risk Assessment Time: 11:40 VTE Orders Placed or Will Be Placed: Yes Plan - Detailed Diagnosis and Plan (1) CHF (congestive heart failure) Current Visit: Yes Status: Chronic Qualifiers: Base Code: I50.9 - HEART FAILURE, UNSPECIFIED Comment: 08/27/18: - hx of CHF - ECHO 07/12/18: reduced LV systolic function similar to before, EF 10-15% - BNP 7377 on 08/26/18 - EKG: LBBB, unchanged from 07/12/18 - Continue Aldactone 12.5md daily, Coreg 3.125mg BID, ASA 325mg, Lasix 40mg daily - Cardiology consult today with Dr. Galvin- per Dr. Galvin- pt. is on optimized therapy, spoke with pt. and her daughter regarding hospice care -Case management consult ordered for hospice vs. palliative care consult/ placement (2) At risk for deep venous thrombosis Current Visit: No Status: Acute Base Code: Z91.89 - OTH PERSONAL RISK FACTORS, NOT ELSEWHERE CLASSIFIED Comment: 08/27/18: -No anticoagulant added to treatment due to increased age/fall risk -Continue daily ASA 325mg -Nursing to encourage ambulation (3) Failure to thrive in adult Current Visit: No Status: Acute Base Code: R62.7 - ADULT FAILURE TO THRIVE Comment: 08/27/18: - Pt. met with dietary - regular diet, supplemental drinks with meals. (4) Do not resuscitate Current Visit: Yes Status: Acute Base Code: Z66 - DO NOT RESUSCITATE Comment: 08/27/18: -Pt. is a DNR
[2018-08-27] MEDS: MORPHINE SULFATE 10 MG/ML VIAL IVP PRN (14:00)
[2018-08-27] MEDS ORDERED: LORAZEPAM 2 MG/ML VIAL IV PRN (14:42)
[2018-08-27] MEDS ORDERED: MIRTAZAPINE 15 MG TABLET PO SCH (22:00)
[2018-08-27] MEDS: LATANOPROST 0.005% OPTH SOLUTION 2.5ML BOTTLE OPTH SCH (22:00)
--- NOTE | 2018-08-27 22:26 | Cardiology Consult ---
DATE: 08/27/2018 CONSULTING PHYSICIAN: RAMYA BACON M.D. Ms. Nielson is an 78 year old woman, who is well known to our Cardiology service. We were consulted for acute systolic and diastolic congestive heart failure. Ms. Nielson has a longstanding history of cardiomyopathy with an ejection fraction of less than 20%. She had a [employer] AICD placed in June of 2018. She has history of cardiac catheterization in April, demonstrating no obstructive coronary artery disease. Echocardiogram in June demonstrated severe mitral regurgitation and moderate aortic regurgitation with less than 20% ejection fraction. She has Stage C heart failure with current [place] [employer] Class IV symptoms. Her proBNP on admission was 7,377. Her family states she has chronic dyspnea but got progressively worse in the past week. PAST MEDICAL HISTORY INCLUDES: Nonischemic cardiomyopathy. [employer] single- chamber AICD placement. MEDICATIONS CURRENTLY INCLUDE: Carvedilol 6.25 mg b.i.d. Digoxin 125 mcg daily IV Furosemide 40 mg b.i.d. Lisinopril 2.5 mg daily Spironolactone 12.5 mg daily Oxybutynin 15 mg daily ALLERGIES: NONE. SOCIAL HISTORY: No tobacco or alcohol use. She is currently in the room with her daughters present. PHYSICAL EXAM: GENERAL: Her temperature is 97.4. VITAL SIGNS: Blood pressure 100/51. Pulse is 84. She is 98% on 2 liters. LUNGS: Crackles at the base. CARDIAC: Systolic ejection murmur radiating to the axilla, 3/6. ABDOMEN: Soft. EXTREMITIES: No edema. Overall, she appears cachectic. LABORATORY: White count is 7.4. Hemoglobin 14.1. Platelets 110,000. Sodium 131. Potassium 5.3. BUN 20. Creatinine 0.6. proBNP 7,377. Troponins are negative. Digoxin 0.6. IMPRESSION/PLAN: END-STAGE HEART FAILURE: Ms. Nielson is 78 years old with Stage C [place] [employer] Class IV symptoms status post AICD placement on goal duride medical therapy. I offered her transfer to [facility] for further optimization of her medical regimen including switching to Entresto and consideration for bi- ventricular AICD upgrade, if she is stable. In addition, we had a shantel discussion regarding Hospice and palliative care. The family at this time states with multiple recent hospitalizations and progressive decline in physical status, they would like Hospice care. Please call our office if you have any further questions or concerns going forward. JOB NUMBER: [id number] MTDFred
[2018-08-28] MEDS ORDERED: LORAZEPAM 0.5 MG TABLET PO PRN (06:25)
[2018-08-28] MEDS: HYDROCODONE/APAP 5/325MG TABLET PO PRN (08:43)
[2018-08-28] MEDS: MORPHINE SULFATE 10 MG/ML VIAL IVP PRN ×3 (09:02→15:10)
[2018-08-28] MEDS: SPIRONOLACTONE 25 MG TAB PO SCH (09:15)
[2018-08-28] MEDS: OXYBUTYNIN CHLORIDE 5MG TABLET PO SCH ×2 (09:16→15:10)
[2018-08-28] MEDS: DIGOXIN 125 MCG TABLET PO SCH (09:16)
[2018-08-28] MEDS: ASPIRIN 325 MG TAB ENTERIC-COATED PO SCH (09:16)
[2018-08-28] MEDS: CARVEDILOL 3.125 MG TABLET PO SCH (09:17)
[2018-08-28] MEDS: FUROSEMIDE IV 40MG/4ML VIAL IVP SCH (09:17)
[2018-08-28] MEDS: LISINOPRIL 5 MG TABLET PO SCH (10:48)
--- NOTE | 2018-08-28 14:24 | Discharge Summary ---
Providers Discharge Summary Date: 08/28/18 Date of admission: 08/26/18 16:18 Expected Date of Discharge: 08/28/18 Attending physician: GODWIN MUNGUIA Primary care physician: GODWIN MUNGUIA Consults: Consult Orders 08/26/18 21:29 Consult - Cardiology NOW Consulting Provider: RAMYA GALVIN Physician Instructions: Reason For Exam: Heart failure Does pt have current bead filler?: Heidi Comment: Dr. Waller 08/27/18 09:54 Consult - Case Management Now Comment: Reason For Exam: Discuss palliative care Physical Exam - Vital Signs Vital Signs: Vital Signs - Last 24 Hrs Temp Pulse Resp BP BP Pulse Ox 08/28/18 09:00 97.2 F L 72 20 102/48 95 08/28/18 06:15 98.1 F 78 20 111/39 97 08/28/18 06:00 98 08/27/18 21:00 97.5 F L 67 86/37 97 08/27/18 15:52 57 L 20 97 - General General Appearance: Alert, Cooperative, Mild distress Limitations: No limitations - Head Head exam: Atraumatic, Normocephalic, Normal inspection - Eye Eye exam: Normal appearance, PERRL, EOMI - ENT Throat exam: Normal inspection. negative: Tonsillar erythema, Tonsillar exudate - Neck Neck exam: Normal inspection, Full ROM. negative: Tenderness - Respiratory Respiratory exam: Rales (at the bases.). negative: Normal lung sounds bilaterally, Decreased breath sounds - Cardiovascular Cardiovascular Exam: Regular rate, Normal rhythm, S3, Other (mitral murmur). negative: Diastolic murmur Peripheral Pulses: 2+: Radial (R), Radial (L), Dorsalis Pedis (R), Dorsalis Pedis (L) - GI/Abdominal GI/Abdominal exam: Soft, Normal bowel sounds. negative: Tenderness - Extremities Extremities exam: Normal inspection, Full ROM, Normal capillary refill. negative: Tenderness - Neurological Neurological exam: Alert, Normal gait. negative: Abnormal gait, Motor sensory deficit - Psychiatric Psychiatric exam: Depressed Hospitalization - Hospitalization Admission Diagnosis: 1. Acute CHF - Problem List/Discharge Diagnosis (1) CHF (congestive heart failure) Current Visit: Yes Status: Chronic Discharge Diagnosis: Base Code: I50.9 - HEART FAILURE, UNSPECIFIED Comment: 08/28/18: - hx of CHF - ECHO 07/12/18: reduced LV systolic function similar to before, EF 10-15% - Discharge to hospice today (2) At risk for deep venous thrombosis Current Visit: No Status: Acute Base Code: Z91.89 - OTH PERSONAL RISK FACTORS, NOT ELSEWHERE CLASSIFIED Comment: 08/28/18: -No anticoagulant added to treatment due to increased age/fall risk (3) Failure to thrive in adult Current Visit: No Status: Acute Base Code: R62.7 - ADULT FAILURE TO THRIVE Comment: 08/28/18: - regular diet, supplemental drinks with meals. (4) Do not resuscitate Current Visit: Yes Status: Acute Base Code: Z66 - DO NOT RESUSCITATE Comment: 08/28/18: -Pt. is a DNR -Provided hospice facility contact info for [employer] rep to turn off ICD - Disposition Discharge to [facility] for hospice care - Hospitalization Course Disposition: Hospice; pt to live @facility Hospital Course: Mrs. Nielson is an 78 year-old female who presented to the ED on 08/26/18 with c/o 8-week history of shortness of breath, cough, and weakness that has progressively worsened since having an AICD placed on 07/02/[address] Fuller. She was hospitalized on 07/12/18 with a syncopal episode and again on 07/27/18 with similar symptoms- she was transferred to [facility] at that time for further evaluation of her AICD placement. She was seen in the ED 8 days ago with the same complaint. Since she was last in the ER, she did see her PCP (Dr. Munguia) and Minor League Baseball Player (Dr. Waller). She has a history of CHF with severe mitral regurgitation, cardiomegaly, EF 10-15%, HTN, osteoporosis, and anxiety. Her daughter, Stephanie Hernandes, is her DPOA. In the ED, her vitals were: BP 106/36, HR 83, RR 20, 98% on room air, and T 98.1F. Labs revealed BNP of 7377, sub-therapeutic digoxin level at 0.6. EKG demonstrated L BBB, unchanged from previous. Chest xray was negative for acute change. She was admitted for observation for CHF. 08/26/18 1700: Pt. is resting in bed, her daughter is at her bedside. Pt. appears to be in mild respiratory distress at this time- she is mouth breathing and short of breath with talking. Will plan to continue oxygen via nasal cannula, tele, diuretics, and lab monitoring. Planning for cardiology consult tomorrow morning. 08/27/18: Pt.is sitting up in bed in tri-pod position, she appears in more respiratory distress this morning, rales auscultated throughout lung rice. Pt. states that she feels like she just ran 2 miles and can't catch her breath. Daughter reports that she only slept about [address] Galvin saw pt. this morning- he feels pt's symptoms are due to her end-stage CHF and her treatment is optimized at this time. Spoke with Dr. Munguia and pt'd daughter , Lita, and discussed consideration of palliative care or hospice care. Lita states that her mother has already voiced that she just wants to be comfortable. Social work consult ordered for palliative care vs. hospice placement. Ordered 2mg morphine q4h for pain and ativan 1mg q4h prn restlessness, will start remeron 15mg qhs. 08/28/18: Discharge to [facility] facility today for hospice placement. Provided prescriptions for 3 days for oral morphine sulfate, ativan , norco, and remeron. Provided hospice facility with info for [employer] rep to turn off ICD. Pt. and her family (including DPOA) are in agreement of plan. PCP: Dr. Munguia Cardiology: Dr. Waller Vascular surgeon: Dr. Fuller Procedures: Imaging and X-Rays 08/26/18 14:05 CHEST 2 VIEWS [RAD] Stat Cardiology Procedures 08/26/18 14:05 Buyer Broker NOW EKG NOW 08/26/18 16:35 Buyer Broker .Continuous EKG QDX2@0600 Abnormal Labs: Abnormal Lab Results 08/26/18 08/26/18 08/26/18 Range/Units 14:15 14:15 14:15 MCV 98.8 H (81-97) fl Plt Count 110 L (130-400) K/uL MPV 13.6 H (7.4-10.4) fl APTT 23.3 L (24.5-39.1) SECONDS Sodium 131 L (136-145) mmol/L Potassium 5.3 H (3.4-4.5) mmol/L Carbon Dioxide 21.0 L (22-29) mmol/L Random Glucose 114 H (74-109) mg/dL NT-Pro-B Natriuret Pep 7377.00 H (<450) pg/mL Digoxin 0.6 L (0.8-2.0) ng/mL Condition at Discharge: (2) Stable Discharge Diagnosis: end-stage CHF, Failure to thrive VTE Discharge VTE Reason For No Overlap Therapy: Not Indicated Discharge Medications - Discharge Medications Prescriptions: Mirtazapine [Remeron] 15 mg PO QHS #5 tablet Hydrocodone/APAP 5/325Mg [Delaplane 5Mg/325Mg] 1 each PO Q4H PRN #12 tab PRN Reason: Pain - Moderate (5-7) Lorazepam [Ativan] 0.5 mg PO Q4H PRN #20 tablet PRN Reason: Anxiety Morphine Sulfate [Roxanol] 10 mg PO Q2H PRN #20 ml PRN Reason: Pain - Mild To Moderate (1-7) Home Medications: Ambulatory Orders Aspirin [Ecotrin] 81 mg PO 1200 11/19/16 [Last Taken 08/26/18] Latanoprost 0.005% Opth Liliam [Xalatan] 1 drop OP QHS 11/19/16 [Last Taken ] Oxybutynin Chloride [Oxybutynin Chloride ER] 15 mg PO DAILY 90 Days #90 [Last Taken 08/26/18] Spironolactone 12.5 mg PO DAILY 90 Days #45 11/19/16 [Last Taken 08/26/18] Digoxin [Lanoxin] 125 mcg PO DAILY #30 tablet 01/13/18 [Last Taken 08/26/18] Carvedilol [Coreg] 6.25 mg PO BID 90 Days #180 07/12/18 [Last Taken 08/26/18] Furosemide [Lasix] 20 mg PO Q48H 30 Days #30 07/12/18 [Last Taken 08/26/18] Hydrocodone/APAP 5/325Mg [Delaplane 5Mg/325Mg] 1 each PO Q4H PRN #12 tab 08/28/18 [ Last Taken Unknown] Lorazepam [Ativan] 0.5 mg PO Q4H PRN #20 tablet 08/28/18 [Last Taken Unknown] Mirtazapine [Remeron] 15 mg PO QHS #5 tablet 08/28/18 [Last Taken Unknown] Morphine Sulfate [Roxanol] 10 mg PO Q2H PRN #20 ml 08/28/18 [Last Taken Unknown] Discharge Plan - Discharge Instructions Activity at Discharge: Other (as tolerated) Diet at Discharge: Regular Diet Quality Measures - Quality Measures Quality Measures: Advance Directives, Documentation of Current Medications in Medical Record, Elder Maltreatment Screen and Follow-Up Plan, Heart Failure, Screening for High Blood Pressure and F/U Documented - Current Medications Quality Measure: Measure #130: Documentation of Current Medications Documentation of Current Medications: <Current Medications Documented/Reviewed> [O5411] - Blood Pressure Screening Quality Measure: Screening for High Blood Pressure and Follow-Up Documented Does Patient Have Any of the Following: Active Dx of HTN Blood Pressure Classification: Normal BP Reading Systolic Measurement: 95 Diastolic Measurement: 57 Screening for High Blood Pressure: Patient Exclusion, Hx of HTN [G9814] - Heart Failure (MARIBEL/ARB Therapy) Quality Measure: Heart Failure Left Ventricular Systolic Function: LV Ejection Fraction less than 40% [3021F], Moderately or Severely Depressed LVSF [3021F] MARIBEL Inhibitor or ARB Therapy for LVSD: <MARIBEL Inhibitor or ARB therapy prescribed or currently taken> [4010F] - Heart Failure (Beta-dm Therapy) Quality Measure: Heart Failure Left Ventricular Systolic Function: LV Ejection Fraction less than 40% [3021F], Moderately or Severely Depressed LVSF [3021F] Beta-Dm Therapy for LVEF < 40%: <Beta-Dm Therapy Prescribed> [J2350] - Advance Directives Quality Measure: Measure #47: Care Plan Advance Directives Established: No Advance Directives Information Provided To Patient: Yes Advance Directives on File: Yes Living Will: Yes Power of Inspector Hot Forgings: Yes Power of Inspector Hot Forgings Name: Lita Hernandes Advance Care Planning: <Care Plan/Decision Maker Documented; Discussed & Documented> [7263F] - Elder Abuse Suspicion Index Screening: Elder Abuse Suspicion Index Screening Rely on people for bathing, dressing, shopping, banking, etc: No Prevented from getting food, clothes, medication, etc: No Made to feel shamed or threatened by someone: No Forced to sign papers or use money against will: No Feel afraid, touched in ways not wanted or hurt physically: No Poor eye contact, withdrawn, malnourished, cuts or bruises: No Screening Result: Negative result EASI Reference Information: Soila MARTINEZ, Kelton C, Irvin Ibarra, Elmer Yee.Development and validation of a tool to assist physicians identification of elder abuse: The Elder Abuse Suspicion Index (EASI ). Journal of Elder Abuse and Neglect, 2008; 20 (3): 276-300. - Elder Maltreatment Screen Quality Measures: Elder Maltreatment Screen and Follow-Up Plan Elder Maltreatment Screen: <Negative, No Follow-Up Plan Required> [G8734]
--- NOTE | 2018-08-29 09:51 | RADIOLOGY REPORT ---
DATE: 08/26/2018 at 1445 hours. EXAM: CHEST, TWO VIEWS. HISTORY: Worsening shortness of breath with congestion. Cardiomyopathy history. TECHNIQUE: Upright AP and lateral views of the chest. COMPARISON: Two-view chest radiographic examination dated 08/18/2018. CT angiogram of the chest dated 07/27/2018. FINDINGS: A single-lead transvenous cardiac stimulator remains in place via the left subclavian approach with lead tip in the right ventricle. Moderate cardiac enlargement again noted. There is pulmonary venous hypertension. The margins of the perihilar vasculature are ill defined. Mild reticular opacity prominence redemonstrated within the lung bases, stable or slightly worsened in the interval. Mild interstitial edema cannot be excluded. The lungs are hyperinflated. Mild posterior costophrenic angle blunting consistent with small pleural effusions. IMPRESSION: 1. CARDIOMEGALY. INTERVAL WORSENING OF PULMONARY VENOUS HYPERTENSION AND A NEW ILL DEFINITION OF THE PERIHILAR VASCULATURE SUSPICIOUS FOR FLUID OVERLOAD WITH MILD EDEMA. MILD RETICULAR OPACITY PROMINENCE WITHIN THE LUNG BASES MAY BE SLIGHTLY WORSENED. AGAIN, MILD INTERSTITIAL EDEMA CANNOT BE EXCLUDED. 2. HYPERINFLATION OF THE LUNGS CONSISTENT WITH CHRONIC OBSTRUCTIVE PULMONARY DISEASE. MILD COSTOPHRENIC ANGLE BLUNTING CONSISTENT WITH SMALL PLEURAL EFFUSIONS. JOB NUMBER: [id number] [facility]
== END 2018-08-28 15:30 | disposition hospice, inpatient (51) ==
LOC: ER 13:48 → MEDSURG 16:18
PROVIDERS: ADMIT Internal Medicine; ATTEND Internal Medicine
DX: I50.9 Heart failure, unspecified (principal); R06.02 Shortness of breath; R60.9 Edema, unspecified; I10 Essential (primary) hypertension; I42.9 Cardiomyopathy, unspecified; M81.0 Age-related osteoporosis without current pathological fracture; Z95.810 Presence of automatic (implantable) cardiac defibrillator; Z66 Do not resuscitate
CPT/HCPCS: 82550; 85025; 85730; 85610; 82553; 80048; 84443; 84484 ×2; 80162; 83880; 71046; 93005 ×3; 93010; 94760 ×2; G0378 ×3; J3490 ×3; J2270 ×2; 96374; 99217; 99220; 99285; J1940